=== PATIENT | female | born 1945 | race Caucasian/White ===

== ENCOUNTER 2016-08-23 17:36 | Inpatient (IN) | payer MEDICARE, MEDICAID ==
[~2016-08-23] VITALS: Ht 160 cm; Wt 69.4 kg
--- NOTE | 2016-08-23 18:07 | Emergency Room Report ---
History of Present Illness General Chief Complaint: Altered Level of Consciousness Source: EMS Present Illness HPI [id number] BIBEMS from [facility] for "more altered than usual." Patient doesnt speak. No other info from EMS, patient. No other family members present. PMHx: Dysphagia, sacral ulcer, hyperK, dehydration, HTN, DM, depression Allergies: Coded Allergies: ASPIRIN (Unverified Allergy, Unknown, 08/23/16) NIACIN (Unverified Allergy, Unknown, 08/23/16) PENICILLINS (Verified Allergy, Unknown, 12/18/08) Patient History Past Medical History: see triage record, old chart reviewed, other - see HPI Past Surgical History: unable to obtain Pertinent Family History: unable to obtain Social History: Denies: alcohol use, drug use, smoking Now: No Immunizations: UTD Reviewed Nursing Documentation: PMH: Agreed, PSxH: Agreed Nursing Documentation-PMH Hx Hypertension: Yes Hx Diabetes: Yes Review of Systems All Other Systems: negative except mentioned in HPI Physical Exam Vital Signs Date Time Temp Pulse Resp B/P Pulse Ox O2 Delivery O2 Flow Rate FiO2 08/23/16 17:29 98.8 105 18 183/87 97 Room Air Sp02 EP Interpretation: reviewed, abnormal General Appearance: normal inspection, well appearing, no apparent distress, alert, GCS 15, non-toxic, obese, other - Lip smacking, non-verbal. No acute distress Head: normocephalic, atraumatic Eyes: bilateral eye EOMI, bilateral eye PERRL ENT: normal ENT inspection, hearing grossly normal, normal voice Neck: normal inspection, full range of motion, supple, no bony tend Respiratory: normal inspection, lungs clear, normal breath sounds, no respiratory distress, no retraction, no wheezing Cardiovascular #1: regular rate, rhythm, no edema Gastrointestinal: normal inspection, normal bowel sounds, non tender, soft, no guarding, no hernia Genitourinary: no CVA tenderness Musculoskeletal: normal inspection, back normal, normal range of motion, Elbert' s Sign negative Neurologic: normal inspection, alert, responsive, ad operations associate III-XII nml as tested, motor strength/tone normal, speech normal Psychiatric: normal inspection, judgement/insight normal, mood/affect normal Skin: normal inspection, normal color, other - acral ulcer Medical Decision Making Medicare Attestation I Piotr Ardon MD hereby attest that the medical record entry for date of service, 04/25/16 accurately reflects signatures/notations that I made in my capacity as MD when I treated/diagnosed the above listed Medicare beneficiary. I attest that this information is true, accurate and complete to the best of my knowledge. I understand that any falsification, omission, or concealment of material fact may subject me to administrative, civil, or criminal liability. This patient warrants hospital admission for extreme of age and has a condition that cannot be treated as outpatient. Diagnostic Impression: Primary Impression: Altered level of consciousness Additional Impression: Sepsis Qualified Codes: A41.9 - Sepsis, unspecified organism ER Course Labs: Leuks 17k. H&H stable. UA pending. Troponin 0. ECG: sinus tachycardia A: AMS likely from sepsis, unknown cause Vanc, Clinda given. PEN allergic Blood Cx pending Wright placed to obtain UA CT head negative for acute process PMD is Dr Anderson, requested Dr Hawkins for admission, endorsed for tele admit at 729pm EKG Diagnostic Results Rate: tachycardiac Rhythm: NSR ST Segments: no acute changes ASA given to the pt in ED: No Rhythm Strip Diag. Results EP Interpretation: yes Rate: 103 Rhythm: NSR, no PVC's, no ectopy Chest X-Ray Diagnostic Results EP Interpretation: Yes Findings: no consolidation, no effusion, no pneumothorax Number of Views: 1 Last Vital Signs Date Time Temp Pulse Resp B/P Pulse Ox O2 Delivery O2 Flow Rate FiO2 08/23/16 17:29 98.8 105 18 183/87 97 Room Air Status: improved Disposition: ADMITTED INPATIENT Condition: Serious PIOTR ARDON M.D. Aug 23, 2016 18:07
[2016-08-23 18:35] LABS: BASOPHILS % (AUTO) 0.6 % (0.0-2.0); LYMPHOCYTES % (AUTO) 11.1 % (20.0-45.0); MEAN CORPUSCULAR HEMOGLOBIN 29.6 PG (27.0-31.0); MEAN CORPUSCULAR HGB CONC 31.8 G/DL (32.0-36.0); MEAN CORPUSCULAR VOLUME 93 FL (80-99); MEAN PLATELET VOLUME 7.9 FL (6.5-10.1); MONOCYTES % (AUTO) 5.8 % (1.0-10.0); NEUTROPHILS % (AUTO) 82.5 % (45.0-75.0); PLATELET COUNT 248 K/UL (150-450); RED BLOOD COUNT 3.53 M/UL (4.20-5.40); RED CELL DISTRIBUTION WIDTH 15.1 % (11.6-14.8); WHITE BLOOD COUNT 17.2 K/UL (4.8-10.8)
[2016-08-23 18:38] LABS: TROPONIN I < 0.30 ng/mL (<=0.30)
[2016-08-23 18:41] LABS: ALANINE AMINOTRANSFERASE 13 U/L (3-33); ALBUMIN/GLOBULIN RATIO 1.1 (1.0-2.7); ANION GAP 20 (5-15); ASPARTATE AMINO TRANSFERASE 14 U/L (5-40); CALCIUM 10.3 mg/dL (8.6-10.2); CARBON DIOXIDE 24 mEQ/L (20-30); CHLORIDE 98 mEQ/L (98-107); CREATININE 1.3 mg/dL (0.5-0.9); GLOMERULAR FILTRATION RATE 40.6 mL/min (>60); HEMOLYSIS 3; POTASSIUM 3.5 mEQ/L (3.4-4.9); SODIUM 142 mEQ/L (135-145); TOTAL PROTEIN 7.4 g/dL (6.6-8.7)
[2016-08-23 18:47] VITALS: BP 161/83
[2016-08-23 18:51] LABS: CKMB 1.9 ng/mL (< 3.8)
[2016-08-23] MEDS ORDERED: Clindamycin 900mg 50 ML IVPB ONE (19:00)
[2016-08-23] MEDS ORDERED: Vancomycin 1.5gm/D5W 300ml 325 ML IVPB ONE (19:00)
[2016-08-23 19:41] LABS: REFLEX LACTIC ACID YES OR NO YES
[2016-08-23 19:41] LABS: KETONES,URINE NEGATIVE (NEGATIVE); LEUKOCYTE ESTERASE ,URINE 1+ (NEGATIVE); NITRITE,URINE NEGATIVE (NEGATIVE); PH,URINE 6.5 (4.5-8.0); PROTEIN,URINE 2+ (NEGATIVE); UROBILINOGEN,URINE NORMAL MG/DL (0.0-1.0)
[2016-08-23 19:47] VITALS: BP 129/74
[2016-08-23 19:51] LABS: APPEARANCE,URINE CLEAR
[2016-08-23] MEDS ORDERED: CRANBERRY425 MG GT (19:54)
[2016-08-23] MEDS ORDERED: BENAZEPRIL HCL40 MG ORAL (19:58)
[2016-08-23] MEDS ORDERED: TRICOR48 MG GT (19:58)
[2016-08-23] MEDS ORDERED: VASCEPA1 GM GT (19:58)
[2016-08-23] MEDS ORDERED: BENAZEPRIL HCL40 MG GT (19:58)
[2016-08-23] MEDS ORDERED: LIPITOR40 MG ORAL (19:58)
[2016-08-23] MEDS ORDERED: MILK OF MA400 MG/51 ORAL (19:58)
[2016-08-23] MEDS ORDERED: CARVEDILOL3.125 MG GT (19:58)
[2016-08-23] MEDS ORDERED: Nitroglycerin Subl 0.4mg tab (Bottle Of 25) SL PRN (20:00)
[2016-08-23] MEDS ORDERED: Miralax 17gm pkt ORAL PRN (20:00)
[2016-08-23] MEDS ORDERED: DuoNeb 0.5-3(2.5)mg/3ml neb HHN PRN (20:00)
[2016-08-23 20:09] LABS: BACTERIA,URINE MANY /HPF; RBC,URINE 0-2 /HPF (0 - 2); SQUAMOUS EPITHELIAL CELL,UR FEW /LPF (NONE/OCC); YEAST,URINE FEW /HPF
[2016-08-23] MEDS ORDERED: TYLENOL EXTRA500 MG GT (20:16)
[2016-08-23] MEDS ORDERED: KLONOPIN1 MG GT (20:16)
[2016-08-23] MEDS ORDERED: LANTUS SOL100 UNIT/1 SUBQ (20:17)
[2016-08-23] MEDS ORDERED: HUMALOG100 UNIT/4 SUBQ (20:17)
[2016-08-23 20:54] LABS: ALANINE AMINOTRANSFERASE 12 U/L (3-33); ALBUMIN/GLOBULIN RATIO 1.2 (1.0-2.7); ANION GAP 18 (5-15); ASPARTATE AMINO TRANSFERASE 12 U/L (5-40); CALCIUM 9.4 mg/dL (8.6-10.2); CARBON DIOXIDE 25 mEQ/L (20-30); CHLORIDE 99 mEQ/L (98-107); CREATININE 1.4 mg/dL (0.5-0.9); GLOMERULAR FILTRATION RATE 37.2 mL/min (>60); HEMOLYSIS 2; POTASSIUM 3.5 mEQ/L (3.4-4.9); SODIUM 142 mEQ/L (135-145); TOTAL PROTEIN 6.3 g/dL (6.6-8.7)
[2016-08-23 20:55] LABS: MAGNESIUM 2.2 mg/dL (1.7-2.5); PHOSPHORUS 4.3 mg/dL (2.5-4.8); URIC ACID 9.8 mg/dL (3.0-7.5)
[2016-08-23] MEDS ORDERED: Morphine Sulfate 2mg/ml Inj IVP PRN (21:00)
[2016-08-23 21:47] VITALS: BP 102/53
[2016-08-23] MEDS: Heparin 5000 units/ml inj SUBQ SCH (23:06)
[2016-08-23] MEDS: NovoLOG Insulin Flexpen SUBQ SCH (23:15)
[2016-08-23] MEDS ORDERED: Cefepime 2gm ONE (23:25)
[2016-08-23] MEDS: Cefepime HCl 2 GM in D5W 110 ML IV SCH (23:36)
[2016-08-24 00:03] VITALS: BP 93/57
[2016-08-24 04:10] VITALS: BP 134/72
[2016-08-24] MEDS: NovoLOG Insulin Flexpen SUBQ SCH ×4 (06:18→22:15)
[2016-08-24 07:45] LABS: BASOPHILS % (AUTO) 0.7 % (0.0-2.0); EOSINOPHILS % (AUTO) 0.3 % (0.0-3.0); MEAN CORPUSCULAR HEMOGLOBIN 29.3 PG (27.0-31.0); MEAN CORPUSCULAR HGB CONC 31.5 G/DL (32.0-36.0); MEAN CORPUSCULAR VOLUME 93 FL (80-99); MEAN PLATELET VOLUME 7.6 FL (6.5-10.1); MONOCYTES % (AUTO) 6.5 % (1.0-10.0); NEUTROPHILS % (AUTO) 78.5 % (45.0-75.0); PLATELET COUNT 246 K/UL (150-450); RED BLOOD COUNT 3.35 M/UL (4.20-5.40); RED CELL DISTRIBUTION WIDTH 15.5 % (11.6-14.8); WHITE BLOOD COUNT 13.4 K/UL (4.8-10.8)
[2016-08-24 07:58] LABS: ALANINE AMINOTRANSFERASE 13 U/L (3-33); ALBUMIN/GLOBULIN RATIO 1.1 (1.0-2.7); ANION GAP 19 (5-15); ASPARTATE AMINO TRANSFERASE 16 U/L (5-40); CALCIUM 9.4 mg/dL (8.6-10.2); CARBON DIOXIDE 23 mEQ/L (20-30); CHLORIDE 103 mEQ/L (98-107); CREATININE 1.2 mg/dL (0.5-0.9); GLOMERULAR FILTRATION RATE 44.5 mL/min (>60); HEMOLYSIS 10; POTASSIUM 3.4 mEQ/L (3.4-4.9); SODIUM 145 mEQ/L (135-145); TOTAL PROTEIN 6.6 g/dL (6.6-8.7)
[2016-08-24 08:00] VITALS: BP 153/73
[2016-08-24] MEDS: Heparin 5000 units/ml inj SUBQ SCH ×2 (08:54→21:00)
--- NOTE | 2016-08-24 09:44 | Diagnostic Imaging Report ---
Indication: Altered mental status Technique: spiral acquisitions obtained through the brain. Angled axial and coronal 5 x 5 mm slices were reconstructed. No IV contrast utilized. Radiation dose was minimized using automated exposure control Total dose length product 1513 mGycm. CTDIvol(s) 70 mGy Comparison: none FINDINGS: No acute hemorrhage or edema. No mass effect or midline shift. There is age-related enlargement of the ventricles and extra axial CSF spaces. There is periventricular deep white matter ischemic change. Normal aragon-white differentiation. Visualized orbits are unremarkable. There is minimal disease within the right maxillary sinus. Intact calvarium. IMPRESSION: Chronic and age-related changes. Negative for acute intracranial bleed or mass effect Maxillary sinus disease This agrees with the preliminary interpretation provided overnight by Dr. Mark The CT scanner at [facility] is accredited by the [employer] and the scans are performed using protocols designed to limit radiation exposure to as low as reasonably achievable to attain images of sufficient resolution adequate for diagnostic evaluation
--- NOTE | 2016-08-24 11:44 | Consultation ---
History of Present Illness General Date patient seen: Aug 24, 2016 Chief Complaint: Altered Level of Consciousness Referring physician: Dr. Hansen Reason for Consultation: In-patient management Present Illness HPI 71 year of female with PMHx of Dysphagia, sacral ulcer, HTN, DM, Gtube, depression brought in by paramedics from [facility] for more altered mental status. Apparently she was less responsive. Initial evaluation in the ER revealed that she has acute sepsis and ATN. Therefore she is admitted to telemetry for further evaluation.. she is awake, not communicating, looks comfortable. Allergies: Coded Allergies: ASPIRIN (Unverified Allergy, Unknown, 08/23/16) NIACIN (Unverified Allergy, Unknown, 08/23/16) PENICILLINS (Verified Allergy, Unknown, 12/18/08) Medication History Scheduled Atorvastatin Calcium* (Lipitor*), 40 MG ORAL BEDTIME, (Reported) Benazepril Hcl* (Benazepril Hcl*), 40 MG ORAL DAILY, (Reported) Benazepril Hcl* (Benazepril Hcl*), 40 MG GT DAILY, (Reported) Carvedilol* (Carvedilol*), 3.125 MG GT EVERY 12 HOURS, (Reported) Fenofibrate Nanocrystallized (Tricor), 48 MG GT DAILY, (Reported) Insulin Glargine (Lantus), 0 SUBQ BEDTIME, (Reported) Scheduled PRN Acetaminophen* (Tylenol Extra Strength*), 500 MG GT Q6H PRN for Mild Pain/Temp > 100.5, (Reported) Clonazepam* (Klonopin*), 1 MG GT Q6H PRN for For Anxiety, (Reported) Magnesium Hydroxide* (Milk Of Magnesia*), 30 ML ORAL DAILY PRN for Constipation, (Reported) Miscellaneous Medications Cranberry Extract (Cranberry), 425 MG GT, (Reported) Icosapent Ethyl (Vascepa), 1 GM GT, (Reported) Insulin Lispro (Humalog), 0 SUBQ, (Reported) Patient History Healthcare decision maker Resuscitation status Advanced Directive on File Yes Past Medical/Surgical History Past Medical/Surgical History: (1) Diabetes (2) HTN (hypertension) (3) CVA (cerebral vascular accident) (4) Feeding by G-tube Review of Systems All Other Systems: negative except mentioned in HPI Physical Exam General Appearance: WD/WN Lines, tubes and drains: peripheral, PICC, gtube HEENT: normocephalic, anicteric Neck: non-tender, supple Respiratory/Chest: chest wall non-tender, lungs clear Breasts: no masses Cardiovascular/Chest: normal rate, regular rhythm Abdomen: normal bowel sounds, soft Genitourinary/Rectal: normal genital exam Skin Exam: normal pigmentation Last 24 Hour Vital Signs Date Time Temp Pulse Resp B/P Pulse Ox O2 Delivery O2 Flow Rate FiO2 08/24/16 08:00 86 08/24/16 08:00 98.1 94 16 153/73 94 Room Air 08/24/16 04:10 97.7 80 20 134/72 95 Room Air 08/24/16 04:00 96 08/24/16 00:03 98.1 83 20 93/57 98 Room Air 08/24/16 00:00 82 08/23/16 22:13 68 14 102/53 100 Room Air 08/23/16 21:47 97.6 68 14 102/53 100 Room Air 08/23/16 19:47 99.1 93 18 129/74 99 Nasal Cannula 2.0 08/23/16 18:47 110 20 161/83 99 Room Air 08/23/16 17:29 98.8 105 18 183/87 97 Room Air Intake and Output 08/23/16 08/24/16 19:00 07:00 Intake Total 0 ml 1900 ml Output Total 480 ml Balance 0 ml 1420 ml Intake Oral 0 ml IV Total 1900 ml Output Urine Total 480 ml Laboratory Tests Test 08/23/16 18:00 08/23/16 19:20 08/23/16 20:20 08/24/16 06:35 White Blood Count 17.2 K/UL (4.8-10.8) H 13.4 K/UL (4.8-10.8) H Red Blood Count 3.53 M/UL (4.20-5.40) L 3.35 M/UL (4.20-5.40) L Hemoglobin 10.5 G/DL (12.0-16.0) L 9.8 G/DL (12.0-16.0) L Hematocrit 32.9 % (37.0-47.0) L 31.1 % (37.0-47.0) L Mean Corpuscular Volume 93 FL (80-99) 93 FL (80-99) Mean Corpuscular Hemoglobin 29.6 PG (27.0-31.0) 29.3 PG (27.0-31.0) Mean Corpuscular Hemoglobin Concent 31.8 G/DL (32.0-36.0) L 31.5 G/DL (32.0-36.0) L Red Cell Distribution Width 15.1 % (11.6-14.8) H 15.5 % (11.6-14.8) H Platelet Count 248 K/UL (150-450) 246 K/UL (150-450) Mean Platelet Volume 7.9 FL (6.5-10.1) 7.6 FL (6.5-10.1) Neutrophils (%) (Auto) 82.5 % (45.0-75.0) H 78.5 % (45.0-75.0) H Lymphocytes (%) (Auto) 11.1 % (20.0-45.0) L 14.0 % (20.0-45.0) L Monocytes (%) (Auto) 5.8 % (1.0-10.0) 6.5 % (1.0-10.0) Eosinophils (%) (Auto) 0.0 % (0.0-3.0) 0.3 % (0.0-3.0) Basophils (%) (Auto) 0.6 % (0.0-2.0) 0.7 % (0.0-2.0) Sodium Level 142 mEQ/L (135-145) 142 mEQ/L (135-145) 145 mEQ/L (135-145) Potassium Level 3.5 mEQ/L (3.4-4.9) 3.5 mEQ/L (3.4-4.9) 3.4 mEQ/L (3.4-4.9) Chloride Level 98 mEQ/L (98-107) 99 mEQ/L (98-107) 103 mEQ/L (98-107) Carbon Dioxide Level 24 mEQ/L (20-30) 25 mEQ/L (20-30) 23 mEQ/L (20-30) Anion Gap 20 (5-15) H 18 (5-15) H 19 (5-15) H Blood Urea Nitrogen 59 mg/dL (7-23) H 59 mg/dL (7-23) H 51 mg/dL (7-23) H Creatinine 1.3 mg/dL (0.5-0.9) H 1.4 mg/dL (0.5-0.9) H 1.2 mg/dL (0.5-0.9) H Estimat Glomerular Filtration Rate 40.6 mL/min (>60) 37.2 mL/min (>60) 44.5 mL/min (>60) Glucose Level 235 mg/dL (74-106) H 247 mg/dL (74-106) H 159 mg/dL (74-106) H Lactic Acid Level 2.70 mmol/L (0.66-2.22) H 2.50 mmol/L (0.66-2.22) H Calcium Level 10.3 mg/dL (8.6-10.2) H 9.4 mg/dL (8.6-10.2) 9.4 mg/dL (8.6-10.2) Total Bilirubin < 0.2 mg/dL (0.0-1.2) < 0.2 mg/dL (0.0-1.2) < 0.2 mg/dL (0.0-1.2) Aspartate Amino Transf (AST/SGOT) 14 U/L (5-40) 12 U/L (5-40) 16 U/L (5-40) Alanine Aminotransferase (ALT/SGPT) 13 U/L (3-33) 12 U/L (3-33) 13 U/L (3-33) Alkaline Phosphatase 77 U/L (35-104) 66 U/L (35-104) 65 U/L (35-104) Total Creatine Kinase 56 U/L (26-140) 44 U/L (26-140) Creatine Kinase MB 1.9 ng/mL (< 3.8) Creatine Kinase MB Relative Index 3.3 Troponin I < 0.30 ng/mL (<=0.30) Total Protein 7.4 g/dL (6.6-8.7) 6.3 g/dL (6.6-8.7) L 6.6 g/dL (6.6-8.7) Albumin 3.9 g/dL (3.5-5.2) 3.5 g/dL (3.5-5.2) 3.5 g/dL (3.5-5.2) Globulin 3.5 g/dL 2.8 g/dL 3.1 g/dL Albumin/Globulin Ratio 1.1 (1.0-2.7) 1.2 (1.0-2.7) 1.1 (1.0-2.7) Urine Color Pale yellow Urine Appearance Clear Urine pH 6.5 (4.5-8.0) Urine Specific Nebo 1.010 (1.005-1.035) Urine Protein 2+ (NEGATIVE) H Urine Glucose (UA) 3+ (NEGATIVE) H Urine Ketones Negative (NEGATIVE) Urine Occult Blood 1+ (NEGATIVE) H Urine Nitrite Negative (NEGATIVE) Urine Bilirubin Negative (NEGATIVE) Urine Urobilinogen Normal MG/DL (0.0-1.0) Urine Leukocyte Esterase 1+ (NEGATIVE) H Urine RBC 0-2 /HPF (0 - 2) Urine WBC 2-4 /HPF (0 - 2) Urine Squamous Epithelial Cells Few /LPF (NONE/OCC) Urine Bacteria Many /HPF (NONE) H Urine Yeast Few /HPF (NONE) H Urine Osmolality Pending Urine Random Sodium 52 mmol/L Urine Random Chloride 46 mmol/L Urine Potassium Timed 44 mmol/L Urine Opiates Screen Negative (NEGATIVE) Urine Barbiturates Screen Negative (NEGATIVE) Phencyclidine (PCP) Screen Negative (NEGATIVE) Urine Amphetamines Screen Negative (NEGATIVE) Urine Benzodiazepines Screen Negative (NEGATIVE) Urine Cocaine Screen Negative (NEGATIVE) Urine Marijuana (THC) Screen Negative (NEGATIVE) Plasma/Serum Osmolality Pending Uric Acid 9.8 mg/dL (3.0-7.5) H Phosphorus Level 4.3 mg/dL (2.5-4.8) Magnesium Level 2.2 mg/dL (1.7-2.5) Free Thyroxine 1.91 ng/dL (0.86-1.85) H Microbiology Date/Time Source Procedure Growth Status 08/23/16 19:20 Urine,Clean Catch Urine Culture - Preliminary Gram Negative Bacillus 1 Resulted Height (Feet): 5 Height (Inches): 3.00 Weight (Pounds): 153 Medications Current Medications Medications (Trade) Dose Ordered Sig/Nicholas Route PRN Reason Start Time Stop Time Status Last Admin Dose Admin Acetaminophen (Tylenol) 650 mg Q4H PRN ORAL fever 08/23/16 20:00 09/22/16 19:59 Albuterol/ Ipratropium 3 ml 3 ml Q4H PRN HHN Shortness of Breath 08/23/16 20:00 08/28/16 19:59 Cefepime HCl 2 gm/ Dextrose 110 ml @ 220 mls/hr Q24H IV 08/23/16 23:00 08/30/16 22:59 08/23/16 23:36 Dextrose (Dextrose 50%) STAT PRN IV Hypoglycemia 08/23/16 20:00 09/22/16 19:59 Heparin Sodium (Porcine) (Heparin 5000 units/ml) 5,000 units EVERY 12 HOURS SUBQ 08/23/16 21:00 09/22/16 20:59 08/24/16 08:54 Insulin Aspart (NovoLOG) BEFORE MEALS AND HS SUBQ 08/23/16 22:00 09/22/16 21:59 08/24/16 06:18 Morphine Sulfate (Morphine Sulfate) 2 mg Q4H PRN IVP Moderate Pain (Pain Scale 4-6) 08/23/16 21:00 08/30/16 20:59 Nitroglycerin (Ntg) 0.4 mg Q5MIN X 3 DOSES PRN SL Prn Chest Pain 08/23/16 20:00 09/22/16 19:59 Ondansetron HCl (Zofran) 4 mg Q6H PRN IVP Nausea & Vomiting 08/23/16 20:00 09/22/16 19:59 Polyethylene Glycol (Miralax) 17 gm DAILYPRN PRN ORAL Constipation 08/23/16 20:00 09/22/16 19:59 Sodium Chloride (Sodium Chloride 1000ml bag) 1,000 ml @ 100 mls/hr Q10H IVLG 08/23/16 22:00 09/22/16 21:59 08/24/16 08:53 Temazepam (Restoril) 15 mg HSPRN PRN ORAL Insomnia 08/23/16 20:00 08/30/16 19:59 Vancomycin HCl (Vanco rx to dose) 1 ea DAILY PRN MISC PRN RX PROTOCOL 08/23/16 20:45 09/22/16 20:44 Vancomycin HCl/ Dextrose (Vancomycin/D5W) 275 ml @ 183.3 mls/ hr Q24H IVPB 08/24/16 19:00 08/29/16 18:59 Assessment/Plan Problem List: (1) Sepsis ICD Codes: A41.9 - Sepsis, unspecified organism SNOMED: 13757368 Qualifiers: Qualified Codes: A41.9 - Sepsis, unspecified organism (2) ATN (acute tubular necrosis) ICD Codes: N17.0 - Acute kidney failure with tubular necrosis SNOMED: 04933260 (3) HTN (hypertension) ICD Codes: I10 - Essential (primary) hypertension SNOMED: 12342477 (4) CVA (cerebral vascular accident) ICD Codes: I63.9 - Cerebral infarction, unspecified SNOMED: 352452903 (5) Feeding by G-tube ICD Codes: Z93.1 - Gastrostomy status SNOMED: 034984184, 279033998 (6) Diabetes ICD Codes: E11.9 - Type 2 diabetes mellitus without complications SNOMED: 59833359 Assessment/Plan lees culture iv antibioitics iv fluids check cultures dvt prophylaxis check electrolytes nutrition evaluation MAGDA SAUL Aug 24, 2016 11:44
--- NOTE | 2016-08-24 11:44 | History & Physical ---
History and Physical History & Physicial Dictated for Int Med-Dr Hawkins no. [id number]. BRAD ABREU Aug 24, 2016 11:43
[2016-08-24 12:00] VITALS: BP 152/80
--- NOTE | 2016-08-24 14:26 | Diagnostic Imaging Report ---
Indication: Shortness of breath Technique: One view of the chest Comparison: 03/22/2017 Findings: There is thoracic scoliotic deformity. Lungs and pleural spaces are clear. The heart is enlarged. Impression: No acute process Cardiomegaly Scoliosis, also previously reported
--- NOTE | 2016-08-24 14:55 | Diagnostic Imaging Report ---
Indication: Abnormal renal function tests Technique: Grayscale and duplex images of the kidneys, retroperitoneum, and bladder were obtained. Comparison: Findings: Right kidney measures 10.2 cm in length. Left kidney measures 10.1 cm in length. Both kidneys demonstrate normal echogenicity. No hydronephrosis. The right kidney demonstrates a 15 mm diameter calculus in the lower pole renal sinus. The left kidney demonstrates a 15 mm upper pole cyst. Normal inferior vena cava. Bladder is empty, contains a Wright catheter. Impression: Negative for hydronephrosis Nonobstructing right lower pole renal calculus Left renal cyst incidentally noted .
[2016-08-24 16:00] VITALS: BP 152/79
--- NOTE | 2016-08-24 18:58 | History and Physical Report ---
DATE OF ADMISSION: 08/23/[address] Hawkins CHIEF COMPLAINT: The patient is a 71-year-old white female who presents with complaint of altered mental status. HISTORY OF PRESENT ILLNESS: The patient is a resident of [facility] skilled [facility]. According to staff, she is becoming increasingly altered. The patient was transferred to [place] emergency room. The patient was found to have urinary tract infection. The patient was admitted for altered mental status and urinary tract infection. REVIEW OF SYSTEMS: Unable to assess, secondary to patient's mental condition. PAST MEDICAL HISTORY: Significant for. 1. Type 2 diabetes. 2. Chronic renal failure. 3. Hypertension. 4. Coronary artery disease. 5. Schizoaffective disorder, bipolar type. 6. Sacral decubitus ulcer. 7. Dysphagia. PAST SURGICAL HISTORY: Significant for G-tube placement. . CURRENT MEDICATIONS: 1. Coreg 3.125 mg p.o. twice daily. 2. Regular insulin sliding scale. 3. Benazepril 40 mg one tablet per G-tube daily. 4. Lipitor 40 mg per G-tube daily. 5. TriCor 48 mg per G-tube daily. 6. Vascepa 1 g two capsules per G-tube daily. 7. Tylenol 650 mg one tablet per G-tube every four hours as needed. 8. Clonazepam 1 mg one tablet p.o. every four hours as needed. 9. Depakote 250 mg per G-tube three times daily. 10. Procrit 6000 units subcutaneously three times weekly. 11. Iron sulfate mg per G-tube daily. 12. Multivitamin per G-tube daily. 13. Tramadol 50 mg per G-tube every six hours as needed. 14. Humalog sliding scale. 15. Lantus 60 units subcutaneously at bedtime. 16. Captopril 25 mg per G-tube every six hours. 17. Zyprexa 5 mg per G-tube daily. 18. DuoNeb nebulized as needed. ALLERGIES: 1. Aspirin. 2. Niacin. 3. Penicillin. SOCIAL HISTORY: The patient resident of [facility]. The patient denies tobacco or alcohol use. PHYSICAL EXAMINATION: VITAL SIGNS: Temperature 98.1, respirations 20, pulse 83, blood pressure 93/57. GENERAL: The patient well-developed and well-nourished white female, in no apparent distress. HEENT: Eyes, pupils are equal and responsive to light and accommodation. Extraocular movements are intact. NECK: Supple without lymphadenopathy. CHEST: Lungs are clear to auscultation bilaterally without wheezes or rales. CARDIOVASCULAR: Regular rhythm and rate. S1 and S2 normal without murmurs, rubs, or gallops. ABDOMEN: Soft, nontender, and nondistended. Positive bowel sounds. No evidence of hepatosplenomegaly. Currently no rebound, no guarding. EXTREMITIES: Negative for clubbing, cyanosis, or edema. RECTAL/GENITAL: Refused. NEUROLOGIC: Cranial nerves II through XII are grossly intact without focal deficits. Motor strength is 5/5 bilaterally. Deep tendon reflexes are 2+ plantar LABORATORY STUDIES: WBC 17.2, hemoglobin 10.5, hematocrit 32.9, and platelets 248,000. Sodium 142, potassium 3.5, chloride 99, CO2 25, BUN 59, creatinine 1.4, glucose 247. Lactic acid elevated at 2.7. Troponin normal at less than 0.3. Urinalysis showed 2+ protein, 3+ glucose, 1+ occult blood, with 1+ leukocyte esterase, and 2 to 4 WBCs. ASSESSMENT: This is a 71-year-old white female. 1. Urinary tract infection. 2. Altered mental status. 3. Leukocytosis. 4. Diabetes type 2. 5. Renal failure. 6. . 7. Coronary artery disease. 8. Schizoaffective disorder, bipolar type. 9. Sacral decubitus ulcer. 10. Dysphagia. 11. Hypercholesterolemia. TREATMENT: 1. Urinary tract infection. Urine culture is pending. The patient has been started empirically on intravenous vancomycin and cefepime. Await urine culture, ID and sensitivity. 2. Altered mental status. This may be secondary to urinary tract infection as above. 3. Leukocytosis, this may be secondary to pyelonephritis versus urinary tract infection as above. The patient has been started empirically on intravenous cefepime and vancomycin. An infectious disease consultation obtained with Dr. Ricks. 4. Hypertension. Continue Coreg as above. 5. Coronary artery disease. 6. Schizoaffective disorder, bipolar type. Continue Depakote as above. 7. Sacral decubitus ulcer. The patient is receiving wound care. 8. Dysphagia, the patient is status post G tube. 9. Hypercholesterolemia. Continue Lipitor as above. Fuad Hansen M.D. DR: Antonio JOB#: [id number] CC:
[2016-08-24] MEDS ORDERED: Vancomycin 1 GM in D5W 275 ML IVPB SCH (19:00)
[2016-08-24 20:00] VITALS: BP 141/64
[2016-08-24] MEDS: Cefepime HCl 2 GM in D5W 110 ML IV SCH (22:15)
--- NOTE | 2016-08-24 23:09 | Cardiology Report ---
APPROVED REPORT EKG Measurement Heart Mgze226TRGM ID [id number] Sinus tachycardia Otherwise normal ECG
--- NOTE | 2016-08-24 23:21 | Consultation ---
Consult Note Consult Note ID Dic # [id number] JACKY DAVENPORT M.D. Aug 24, 2016 23:21
[2016-08-25] VITALS (8 sets, daily range): BP systolic 132–187; BP diastolic 71–105
[2016-08-25] MEDS ORDERED: Nitroglycerin Subl 0.4mg tab (Bottle Of 25) SL PRN (01:00)
--- NOTE | 2016-08-25 03:18 | Consultation ---
DATE OF CONSULTATION: 08/24/2016 INFECTIOUS DISEASE CONSULTATION CONSULTING PHYSICIAN: Scooby Ricks M.D. REFERRING PHYSICIAN: 1. Bruce Hurst M.D. 2. Pete Hawkins M.D. REASON FOR CONSULTATION: Evaluation of the patient for sepsis. Recommendation for antibiotic management. HISTORY OF PRESENT ILLNESS: The patient is a 71-year-old female with multiple medical problems who has been admitted to this medical center for worsening of mental status. checking the patient. Infectious Diseases consultation has been requested for further evaluation of the patient's antibiotic management. PAST MEDICAL HISTORY: 1. Diabetes, on insulin. 2. History of renal insufficiency. 3. Hypertension. 4. Coronary artery disease. 5. Schizoaffective disorder and bipolar disorder. 6. disease. 7. Dysphagia status post G-tube placement. ALLERGIES: Aspirin, niacin, and penicillin. MEDICATION: Vancomycin and cefepime. SOCIAL HISTORY: The patient lives in a custodial. FAMILY HISTORY: Noncontributory. REVIEW OF SYSTEMS: Unobtainable. PHYSICAL EXAMINATION: VITAL SIGNS: Pulse 86, respiratory rate 18, temperature 98 degrees, and blood pressure 114/54. HEENT: Mild pale conjunctivae. No icterus. NECK: No lymphadenopathy. CHEST: Coarse breathing sounds. HEART: S1 and S2. ABDOMEN: Soft and nontender. EXTREMITIES: No cyanosis . LABORATORY DATA: White blood cells , hemoglobin 10, and platelets 246,000. UA shows many bacteria and 2 to 4 white blood cells. BUN 51 and creatinine 1.2. Liver function tests are unremarkable. Urine culture is growing gram-negative rods. Chest x-ray, no acute process. Ultrasound of the kidney, negative for hydronephrosis. CT of the head, no acute process and maxillary sinus disease. ASSESSMENT: The patient is a 71-year-old female with multiple medical problems, altered level of consciousness due to the sepsis. The patient had leukocytosis that has been improving checking the patient, however, there is a possibility of bacteremia. PLAN: 1. We will continue the patient on cefepime and vancomycin. 2. Monitor CBC. 3. Monitor BMP. 4. Monitor cultures (blood and urine). 5. Monitor liver function tests. 6. Based on the patient's clinical course and laboratories, we will do further recommendation. Thank you for the consultation. I will follow the patient with you during this hospitalization. Scooby Ricks M.D. DR: CHERELLE JOB#: [id number] CC:
[2016-08-25] MEDS ORDERED: DuoNeb 0.5-3(2.5)mg/3ml neb HHN PRN (04:00)
[2016-08-25] MEDS ORDERED: Morphine Sulfate 2mg/ml Inj IVP PRN (05:00)
[2016-08-25] MEDS: NovoLOG Insulin Flexpen SUBQ SCH ×3 (06:11→18:07)
[2016-08-25 07:51] LABS: BASOPHILS % (AUTO) 0.8 % (0.0-2.0); EOSINOPHILS % (AUTO) 0.4 % (0.0-3.0); LYMPHOCYTES % (AUTO) 10.1 % (20.0-45.0); MEAN CORPUSCULAR HEMOGLOBIN 29.9 PG (27.0-31.0); MEAN CORPUSCULAR HGB CONC 32.5 G/DL (32.0-36.0); MEAN CORPUSCULAR VOLUME 92 FL (80-99); MEAN PLATELET VOLUME 8.2 FL (6.5-10.1); MONOCYTES % (AUTO) 5.6 % (1.0-10.0); NEUTROPHILS % (AUTO) 83.2 % (45.0-75.0); PLATELET COUNT 222 K/UL (150-450); RED BLOOD COUNT 3.25 M/UL (4.20-5.40); RED CELL DISTRIBUTION WIDTH 15.5 % (11.6-14.8); WHITE BLOOD COUNT 13.3 K/UL (4.8-10.8)
[2016-08-25 08:06] LABS: CALCIUM 8.9 mg/dL (8.6-10.2); POTASSIUM 3.1 mEQ/L (3.4-4.9)
[2016-08-25] MEDS: Heparin 5000 units/ml inj SUBQ SCH ×2 (09:02→20:44)
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
--- NOTE | 2016-08-25 09:23 | Infectious Diseases Prog Note ---
Assessment/Plan Assessment/Plan A: The patient is a 71-year-old female with Leukocytosis Sepsis ALOC due to sepsis CT of the head : ? maxillary sinus disease. ( not clinically significance ) UTI Ucx ESBL Kleb Ultrasound of the kidney, negative for hydronephrosis Diabetes Acute renal insufficiency , SP Hypertension CAD Schizoaffective disorder and bipolar disorder Dysphagia status post G-tube placement P: continue the patient on Merrem d# / uponDC will change to Invanz 1 gm daily to complete the course and DC vancomycin and cefepime d# 2 Monitor CBC Monitor BMP. Monitor cultures (blood and urine). Monitor LFT Subjective Constitutional: Denies: anorexia, chills, drenching sweats, fatigue, fever, no symptoms, other Allergies: Coded Allergies: ASPIRIN (Unverified Allergy, Unknown, 08/23/16) NIACIN (Unverified Allergy, Unknown, 08/23/16) PENICILLINS (Verified Allergy, Unknown, 12/18/08) Objective Vital Signs Last 24 Hour Vital Signs Date Time Temp Pulse Resp B/P Pulse Ox O2 Delivery O2 Flow Rate FiO2 08/25/16 08:09 97.5 98 21 154/76 97 Room Air 08/25/16 07:40 98 18 Room Air 08/25/16 07:20 146/91 08/25/16 04:00 98.4 96 18 164/91 96 Room Air 08/25/16 00:09 98.8 92 19 132/92 96 Room Air 08/24/16 20:00 85 08/24/16 20:00 98.2 92 20 141/64 97 Room Air 08/24/16 16:00 97 08/24/16 16:00 97.9 98 22 152/79 97 Room Air 08/24/16 12:00 91 08/24/16 12:00 97.9 99 26 152/80 95 Room Air Height (Feet): 5 Height (Inches): 3.00 Weight (Pounds): 153 HEENT: anicteric Respiratory/Chest: lungs clear Cardiovascular: normal rate Abdomen: no organomegaly Microbiology Date/Time Source Procedure Growth Status 08/23/16 18:10 Blood Blood Culture - Preliminary NO GROWTH AFTER 24 HOURS Resulted 08/23/16 18:00 Blood Blood Culture - Preliminary NO GROWTH AFTER 24 HOURS Resulted 08/23/16 19:20 Urine,Clean Catch Urine Culture - Preliminary Gram Negative Bacillus 1 Resulted 08/23/16 19:45 Rectum VRE Culture - Final Enterococcus Faecalis - Vre Complete Laboratory Tests Test 08/25/16 03:45 08/25/16 07:30 Urine Eosinophils None seen White Blood Count 13.3 K/UL (4.8-10.8) H Red Blood Count 3.25 M/UL (4.20-5.40) L Hemoglobin 9.7 G/DL (12.0-16.0) L Hematocrit 29.8 % (37.0-47.0) L Mean Corpuscular Volume 92 FL (80-99) Mean Corpuscular Hemoglobin 29.9 PG (27.0-31.0) Mean Corpuscular Hemoglobin Concent 32.5 G/DL (32.0-36.0) Red Cell Distribution Width 15.5 % (11.6-14.8) H Platelet Count 222 K/UL (150-450) Mean Platelet Volume 8.2 FL (6.5-10.1) Neutrophils (%) (Auto) 83.2 % (45.0-75.0) H Lymphocytes (%) (Auto) 10.1 % (20.0-45.0) L Monocytes (%) (Auto) 5.6 % (1.0-10.0) Eosinophils (%) (Auto) 0.4 % (0.0-3.0) Basophils (%) (Auto) 0.8 % (0.0-2.0) Sodium Level 141 mEQ/L (135-145) Potassium Level 3.1 mEQ/L (3.4-4.9) L Chloride Level 102 mEQ/L (98-107) Carbon Dioxide Level 20 mEQ/L (20-30) Anion Gap 19 (5-15) H Blood Urea Nitrogen 37 mg/dL (7-23) H Creatinine 1.0 mg/dL (0.5-0.9) H Estimat Glomerular Filtration Rate 55.0 mL/min (>60) Glucose Level 271 mg/dL (74-106) #H Calcium Level 8.9 mg/dL (8.6-10.2) Current Medications Medications (Trade) Dose Ordered Sig/Nicholas Route PRN Reason Start Time Stop Time Status Last Admin Dose Admin Acetaminophen (Tylenol) 650 mg Q4H PRN ORAL fever 08/25/16 04:00 09/24/16 03:59 Albuterol/ Ipratropium (DuoNeb 0.5-3(2.5)mg/3ml) 3 ml Q4H PRN HHN Shortness of Breath 08/25/16 04:00 08/30/16 03:59 Cefepime HCl 2 gm/ Dextrose 110 ml @ 220 mls/hr Q24H IV 08/25/16 23:00 09/01/16 22:59 Dextrose (Dextrose 50%) STAT PRN IV Hypoglycemia 08/25/16 20:00 09/24/16 19:59 Heparin Sodium (Porcine) (Heparin 5000 units/ml) 5,000 units EVERY 12 HOURS SUBQ 08/25/16 09:00 09/24/16 08:59 08/25/16 09:02 Insulin Aspart (NovoLOG) BEFORE MEALS AND HS SUBQ 08/25/16 06:30 09/24/16 06:29 08/25/16 06:11 Morphine Sulfate (Morphine Sulfate) 2 mg Q4H PRN IVP Moderate Pain (Pain Scale 4-6) 08/25/16 05:00 09/01/16 04:59 Nitroglycerin (Ntg) 0.4 mg Q5MIN X 3 DOSES PRN SL Prn Chest Pain 08/25/16 01:00 09/24/16 00:59 Ondansetron HCl (Zofran) 4 mg Q6H PRN IVP Nausea & Vomiting 08/25/16 02:00 09/24/16 01:59 Polyethylene Glycol (Miralax) 17 gm DAILYPRN PRN ORAL Constipation 08/25/16 20:00 09/24/16 19:59 Sodium Chloride 1,000 ml @ 100 mls/hr Q10H IVLG 08/25/16 01:00 09/24/16 00:59 08/25/16 06:12 Temazepam (Restoril) 15 mg HSPRN PRN ORAL Insomnia 08/25/16 20:00 09/01/16 19:59 Vancomycin HCl (Vanco rx to dose) 1 ea DAILY PRN MISC PRN RX PROTOCOL 08/25/16 09:00 09/24/16 08:59 Vancomycin HCl/ Dextrose (Vancomycin/D5W) 275 ml @ 183.3 mls/ hr Q24H IVPB 08/25/16 19:00 08/30/16 18:59 JACKY DAVENPORT M.D. Aug 25, 2016 09:23
[2016-08-25] MEDS: Meropenem 1 GM in NS 110 ML IVPB SCH ×2 (12:34→22:39)
[2016-08-25] MEDS ORDERED: KCl 10% 40mEq/30ml liquid GT ONE (15:45)
--- NOTE | 2016-08-25 16:28 | Physician Query ---
PLEASE COMPLETE DOCUMENT BEFORE SIGNING Dear Dr. Pete Hawkins Date: August Station Engineer/CDS Name: Sukhjinder Asher CDS Station Engineer / CDS Exercise your independent professional judgment when responding to query. Question asked do not imply a particular answer is desired/expected. Clinical Documentation States: "Altered Mental Status /Altered Level Of Consciousness" documented in ED Provider's Notes. "Altered Mental Status" due to Sepsis. Clinical Findings Show: WBC= 17.2, 13.4, 13.3 Lactic Acid=2.70, 2.[address] Scan: IMPRESSION: Chronic and age-related changes. Negative for acute intracranial bleed or mass effect Please indicate the nature and chronicity of the condition below: [] Metabolic Encephalopathy [] Toxic Encephalopathy [x] Toxic - Metabolic Encephalopathy [] Progressive Encephalopathy [] Encephalopathy, Other [] Other: [] Not Applicable Severity [] Acute [] Chronic [] Acute on Chronic [] Unable to determine Condition Present on Admission: [x] Yes [] No []Clinically Undeterminable Please also document in your Progress Notes and/or Discharge Summary and indicate if the condition was present on admission. Ross Freeman MD Date[facility]
--- NOTE | 2016-08-25 17:07 | Internal Med Progress Note ---
Subjective Date of Service: Aug 25, 2016 Physician Name Fuad Abreu Attending Physician Pete Hawkins MD Current Medications Medications (Trade) Dose Ordered Sig/Nicholas Route PRN Reason Start Time Stop Time Status Last Admin Dose Admin Acetaminophen (Tylenol) 650 mg Q4H PRN ORAL fever 08/25/16 04:00 09/24/16 03:59 Albuterol/ Ipratropium (DuoNeb 0.5-3(2.5)mg/3ml) 3 ml Q4H PRN HHN Shortness of Breath 08/25/16 04:00 08/30/16 03:59 Benazepril HCl (Lotensin) 40 mg DAILY GT 08/25/16 15:15 09/24/16 15:14 08/25/16 16:00 Carvedilol (Coreg) 3.125 mg EVERY 12 HOURS GT 08/25/16 16:00 09/24/16 15:59 08/25/16 16:00 Clonidine HCl (Catapres) 0.1 mg Q4H PRN ORAL SBP>160 08/25/16 15:15 09/24/16 15:14 08/25/16 16:00 Dextrose (Dextrose 50%) STAT PRN IV Hypoglycemia 08/25/16 20:00 09/24/16 19:59 Heparin Sodium (Porcine) (Heparin 5000 units/ml) 5,000 units EVERY 12 HOURS SUBQ 08/25/16 09:00 09/24/16 08:59 08/25/16 09:02 Insulin Aspart (NovoLOG) Q6HR SUBQ 08/25/16 18:00 09/24/16 17:59 Meropenem/Sodium Chloride (Merrem/Sodium Chloride) 110 ml @ 220 mls/hr Q8HR IVPB 08/25/16 12:00 08/30/16 11:59 08/25/16 12:34 Morphine Sulfate (Morphine Sulfate) 2 mg Q4H PRN IVP Moderate Pain (Pain Scale 4-6) 08/25/16 05:00 09/01/16 04:59 Nitroglycerin (Ntg) 0.4 mg Q5MIN X 3 DOSES PRN SL Prn Chest Pain 08/25/16 01:00 09/24/16 00:59 Ondansetron HCl (Zofran) 4 mg Q6H PRN IVP Nausea & Vomiting 08/25/16 02:00 09/24/16 01:59 Polyethylene Glycol (Miralax) 17 gm DAILYPRN PRN ORAL Constipation 08/25/16 20:00 09/24/16 19:59 Sodium Chloride (Sodium Chloride 1000ml bag) 1,000 ml @ 100 mls/hr Q10H IVLG 08/25/16 01:00 09/24/16 00:59 08/25/16 06:12 Temazepam 15 mg 15 mg HSPRN PRN ORAL Insomnia 08/25/16 20:00 09/01/16 19:59 Allergies: Coded Allergies: ASPIRIN (Unverified Allergy, Unknown, 08/23/16) NIACIN (Unverified Allergy, Unknown, 08/23/16) PENICILLINS (Verified Allergy, Unknown, 12/18/08) ROS Limited/Unobtainable: Yes Subjective 71 YO F admitted with altered mental status; now UTI. Cover for Int Med-Dr Hawkins. Objective Last Vital Signs Date Time Temp Pulse Resp B/P Pulse Ox O2 Delivery O2 Flow Rate FiO2 08/25/16 16:00 98.8 111 20 187/78 96 Room Air 08/23/16 19:47 2.0 General Appearance: WD/WN, no apparent distress, alert EENT: PERRL/EOMI, normal ENT inspection Neck: non-tender, normal alignment, supple Cardiovascular: normal peripheral pulses, normal rate, regular rhythm, no gallop/murmur, no JVD Respiratory/Chest: chest wall non-tender, lungs clear, normal breath sounds, no respiratory distress, no accessory muscle use Abdomen: normal bowel sounds, non tender, soft, no organomegaly, no mass Extremities: normal range of motion, non-tender 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, no motor/sensory deficits Skin: normal pigmentation, warm/dry Laboratory Tests Test 08/25/16 03:45 08/25/16 07:30 Urine Eosinophils None seen White Blood Count 13.3 K/UL (4.8-10.8) H Red Blood Count 3.25 M/UL (4.20-5.40) L Hemoglobin 9.7 G/DL (12.0-16.0) L Hematocrit 29.8 % (37.0-47.0) L Mean Corpuscular Volume 92 FL (80-99) Mean Corpuscular Hemoglobin 29.9 PG (27.0-31.0) Mean Corpuscular Hemoglobin Concent 32.5 G/DL (32.0-36.0) Red Cell Distribution Width 15.5 % (11.6-14.8) H Platelet Count 222 K/UL (150-450) Mean Platelet Volume 8.2 FL (6.5-10.1) Neutrophils (%) (Auto) 83.2 % (45.0-75.0) H Lymphocytes (%) (Auto) 10.1 % (20.0-45.0) L Monocytes (%) (Auto) 5.6 % (1.0-10.0) Eosinophils (%) (Auto) 0.4 % (0.0-3.0) Basophils (%) (Auto) 0.8 % (0.0-2.0) Sodium Level 141 mEQ/L (135-145) Potassium Level 3.1 mEQ/L (3.4-4.9) L Chloride Level 102 mEQ/L (98-107) Carbon Dioxide Level 20 mEQ/L (20-30) Anion Gap 19 (5-15) H Blood Urea Nitrogen 37 mg/dL (7-23) H Creatinine 1.0 mg/dL (0.5-0.9) H Estimat Glomerular Filtration Rate 55.0 mL/min (>60) Glucose Level 271 mg/dL (74-106) #H Calcium Level 8.9 mg/dL (8.6-10.2) Microbiology Date/Time Source Procedure Growth Status 08/23/16 18:10 Blood Blood Culture - Preliminary NO GROWTH AFTER 24 HOURS Resulted 08/23/16 18:00 Blood Blood Culture - Preliminary NO GROWTH AFTER 24 HOURS Resulted 08/23/16 19:20 Urine,Clean Catch Urine Culture - Final Klebsiella Pneumoniae Esbl Complete 08/23/16 19:45 Rectum VRE Culture - Final Enterococcus Faecalis - Vre Complete Intake and Output 08/24/16 08/25/16 19:00 07:00 Intake Total 1623.3 ml Output Total 700 ml 500 ml Balance -700 ml 1123.3 ml IV Total 983.3 ml Tube Feeding 640 ml Output Urine Total 700 ml 500 ml # Bowel Movements 1 Assessment/Plan Problem List: (1) CAD (coronary artery disease) (2) Schizoaffective disorder, bipolar type (3) Dysphagia (4) Hypercholesterolemia (5) UTI (urinary tract infection) Assessment & Plan: Multi drug resistant Klebsiella-See ID note. 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 Cont meropenem per ID (7) Altered mental status (8) Leukocytosis (9) Diabetes mellitus type II, uncontrolled Assessment & Plan: Continue novolog sliding scale. (10) Renal failure (11) HTN (hypertension) Assessment & Plan: Cont coreg and lotesnin Status: not improved FUAD ABREU Aug 25, 2016 17:07
[2016-08-25] MEDS ORDERED: traMADol 50mg tab ORAL PRN (17:15)
[2016-08-25] MEDS ORDERED: Acetaminophen 500mg (ES) tab ORAL PRN (17:15)
[2016-08-25] MEDS ORDERED: Milk of Magnesia 30ml Ud ORAL PRN (17:15)
[2016-08-25] MEDS ORDERED: FERROUS SU220 MG/53 PO (17:22)
[2016-08-25] MEDS ORDERED: MULTIVITAMINS1 EAC2 ORAL (17:22)
[2016-08-25] MEDS ORDERED: OLANZAPINE5 MG ORAL (17:22)
[2016-08-25] MEDS ORDERED: VALPROIC A250 MG/5 M PO (17:22)
[2016-08-25] MEDS ORDERED: TRAMADOL HCL100 M2 ORAL (17:22)
[2016-08-25] MEDS ORDERED: PROCRIT2000 UNIT/ SUBQ (17:22)
[2016-08-25] MEDS: Valproic Acid 250mg/5ml Liquid GT SCH (18:06)
[2016-08-25] MEDS: Ferrous Sulfate 300 MG/5 ML UDC GT SCH (18:06)
[2016-08-25] MEDS ORDERED: Vancomycin 1 GM in D5W 275 ML IVPB SCH (19:00)
[2016-08-25] MEDS ORDERED: Miralax 17gm pkt ORAL PRN (20:00)
[2016-08-25] MEDS ORDERED: Cefepime HCl 2 GM in D5W 110 ML IV SCH (23:00)
--- NOTE | 2016-08-25 23:29 | Pulmonology Progress Note ---
Assessment/Plan Problems: (1) Sepsis (2) ATN (acute tubular necrosis) (3) HTN (hypertension) (4) CVA (cerebral vascular accident) (5) Feeding by G-tube (6) Diabetes Assessment/Plan Invanz started by Id check wbc check electroltyes tolerating diet dvt prophylaxis Subjective ROS Limited/Unobtainable: No Allergies: Coded Allergies: ASPIRIN (Unverified Allergy, Unknown, 08/23/16) NIACIN (Unverified Allergy, Unknown, 08/23/16) PENICILLINS (Verified Allergy, Unknown, 12/18/08) Objective Last 24 Hour Vital Signs Date Time Temp Pulse Resp B/P Pulse Ox O2 Delivery O2 Flow Rate FiO2 08/25/16 22:05 95 153/71 08/25/16 20:44 175/103 08/25/16 19:12 101 18 Room Air 08/25/16 19:00 98.0 99 20 175/103 98 Room Air 08/25/16 16:00 98.8 111 20 187/78 96 Room Air 08/25/16 16:00 187/85 08/25/16 16:00 112 187/85 08/25/16 16:00 187/85 08/25/16 11:48 97.6 113 21 186/105 96 Room Air 08/25/16 08:09 97.5 98 21 154/76 97 Room Air 08/25/16 07:40 98 18 Room Air 08/25/16 07:20 146/91 08/25/16 04:00 98.4 96 18 164/91 96 Room Air 08/25/16 00:09 98.8 92 19 132/92 96 Room Air Intake and Output 08/24/16 08/25/16 19:00 07:00 Intake Total 1623.3 ml Output Total 700 ml 500 ml Balance -700 ml 1123.3 ml IV Total 983.3 ml Tube Feeding 640 ml Output Urine Total 700 ml 500 ml # Bowel Movements 1 Objective Lines, tubes and drains: peripheral, central line HEENT: normocephalic, atraumatic Neck: non-tender Respiratory/Chest: chest wall non-tender Cardiovascular/Chest: normal peripheral pulses Abdomen: normal bowel sounds, feeding tube, other Genitourinary/Rectal: normal genital exam Extremities: normal range of motion, non-tender Microbiology Date/Time Source Procedure Growth Status 08/23/16 18:10 Blood Blood Culture - Preliminary NO GROWTH AFTER 24 HOURS Resulted 08/23/16 18:00 Blood Blood Culture - Preliminary NO GROWTH AFTER 24 HOURS Resulted 08/23/16 19:20 Urine,Clean Catch Urine Culture - Final Klebsiella Pneumoniae Esbl Complete 08/23/16 19:45 Rectum VRE Culture - Final Enterococcus Faecalis - Vre Complete Laboratory Tests 08/25/16 03:45: Urine Eosinophils None seen 08/25/16 07:30: White Blood Count 13.3H, Red Blood Count 3.25L, Hemoglobin 9.7L, Hematocrit 29.8L, Mean Corpuscular Volume 92, Mean Corpuscular Hemoglobin 29.9, Mean Corpuscular Hemoglobin Concent 32.5, Red Cell Distribution Width 15.5H, Platelet Count 222, Mean Platelet Volume 8.2, Neutrophils (%) (Auto) 83.2H, Lymphocytes (%) (Auto) 10.1L, Monocytes (%) (Auto) 5.6, Eosinophils (%) (Auto) 0.4, Basophils (%) (Auto) 0.8, Sodium Level 141, Potassium Level 3.1L, Chloride Level 102, Carbon Dioxide Level 20, Anion Gap 19H, Blood Urea Nitrogen 37H, Creatinine 1.0H, Estimat Glomerular Filtration Rate 55.0, Glucose Level 271#H, Calcium Level 8.9 Current Medications Medications (Trade) Dose Ordered Sig/Nicholas Route PRN Reason Start Time Stop Time Status Last Admin Dose Admin Acetaminophen (Tylenol) 500 mg Q6H PRN ORAL Mild Pain/Temp > 100.5 08/25/16 17:15 09/24/16 17:14 Albuterol/ Ipratropium (DuoNeb 0.5-3(2.5)mg/3ml) 3 ml Q4H PRN HHN Shortness of Breath 08/25/16 04:00 08/30/16 03:59 Atorvastatin Calcium (Lipitor) 40 mg BEDTIME GT 08/25/16 21:00 09/24/16 20:59 08/25/16 20:45 Benazepril HCl (Lotensin) 40 mg DAILY GT 08/25/16 15:15 09/24/16 15:14 08/25/16 16:00 Carvedilol (Coreg) 3.125 mg EVERY 12 HOURS GT 08/25/16 16:00 09/24/16 15:59 08/25/16 16:00 Clonazepam (KlonoPIN) 1 mg Q6H PRN GT For Anxiety 08/25/16 17:15 09/01/16 17:14 Clonidine HCl (Catapres) 0.1 mg Q4H PRN ORAL SBP>160 08/25/16 15:15 09/24/16 15:14 08/25/16 20:44 Dextrose (Dextrose 50%) STAT PRN IV Hypoglycemia 08/25/16 20:00 09/24/16 19:59 Epoetin Mau (Procrit (for non ESRD use)) 6,000 units MON-MON-MON SUBQ 08/26/16 21:00 09/25/16 20:59 Fenofibrate (Tricor) 54 mg DAILY ORAL 08/26/16 09:00 09/25/16 08:59 Ferrous Sulfate (Feosol) 300 mg THREE TIMES A DAY GT 08/25/16 18:00 09/24/16 17:59 08/25/16 18:06 Heparin Sodium (Porcine) (Heparin 5000 units/ml) 5,000 units EVERY 12 HOURS SUBQ 08/25/16 09:00 09/24/16 08:59 08/25/16 20:44 Insulin Aspart (NovoLOG) Q6HR SUBQ 08/25/16 18:00 09/24/16 17:59 08/25/16 18:07 Magnesium Hydroxide (Mom) 30 ml DAILYPRN PRN ORAL Constipation 08/25/16 17:15 09/24/16 17:14 Meropenem/Sodium Chloride (Merrem/Sodium Chloride) 110 ml @ 220 mls/hr Q8HR IVPB 08/25/16 12:00 08/30/16 11:59 08/25/16 22:39 Morphine Sulfate (Morphine Sulfate) 2 mg Q4H PRN IVP Severe Pain (Pain Scale 7-10) 08/25/16 17:42 09/01/16 04:59 Multivitamins (Multivitamins) 1 tab DAILY ORAL 08/26/16 09:00 09/25/16 08:59 Nitroglycerin (Ntg) 0.4 mg Q5MIN X 3 DOSES PRN SL Prn Chest Pain 08/25/16 01:00 09/24/16 00:59 Olanzapine (ZyPREXA) 5 mg DAILY ORAL 08/26/16 09:00 09/25/16 08:59 Ondansetron HCl (Zofran) 4 mg Q6H PRN IVP Nausea & Vomiting 08/25/16 02:00 09/24/16 01:59 Polyethylene Glycol (Miralax) 17 gm DAILYPRN PRN ORAL Constipation 08/25/16 20:00 09/24/16 19:59 Sodium Chloride (Sodium Chloride 1000ml bag) 1,000 ml @ 100 mls/hr Q10H IVLG 08/25/16 01:00 09/24/16 00:59 08/25/16 20:43 Temazepam 15 mg 15 mg HSPRN PRN ORAL Insomnia 08/25/16 20:00 09/01/16 19:59 Tramadol HCl (Ultram) 50 mg Q6H PRN ORAL Moderate Pain (Pain Scale 4-6) 08/25/16 17:15 09/01/16 17:14 08/25/16 20:44 Valproic Acid (Depakene) 250 mg TID GT 08/25/16 18:00 09/24/16 17:59 08/25/16 18:06 MAGDA SAUL Aug 25, 2016 23:29
--- NOTE | 2016-08-25 23:39 | Nephrology Progress Note ---
Subjective Subjective see consult note. Objective Objective Last 24 Hour Vital Signs Date Time Temp Pulse Resp B/P Pulse Ox O2 Delivery O2 Flow Rate FiO2 08/25/16 22:05 95 153/71 08/25/16 20:44 175/103 08/25/16 19:12 101 18 Room Air 08/25/16 19:00 98.0 99 20 175/103 98 Room Air 08/25/16 16:00 98.8 111 20 187/78 96 Room Air 08/25/16 16:00 187/85 08/25/16 16:00 112 187/85 08/25/16 16:00 187/85 08/25/16 11:48 97.6 113 21 186/105 96 Room Air 08/25/16 08:09 97.5 98 21 154/76 97 Room Air 08/25/16 07:40 98 18 Room Air 08/25/16 07:20 146/91 08/25/16 04:00 98.4 96 18 164/91 96 Room Air 08/25/16 00:09 98.8 92 19 132/92 96 Room Air Intake and Output 08/24/16 08/25/16 19:00 07:00 Intake Total 1623.3 ml Output Total 700 ml 500 ml Balance -700 ml 1123.3 ml IV Total 983.3 ml Tube Feeding 640 ml Output Urine Total 700 ml 500 ml # Bowel Movements 1 Laboratory Tests 08/25/16 03:45: Urine Eosinophils None seen 08/25/16 07:30: White Blood Count 13.3H, Red Blood Count 3.25L, Hemoglobin 9.7L, Hematocrit 29.8L, Mean Corpuscular Volume 92, Mean Corpuscular Hemoglobin 29.9, Mean Corpuscular Hemoglobin Concent 32.5, Red Cell Distribution Width 15.5H, Platelet Count 222, Mean Platelet Volume 8.2, Neutrophils (%) (Auto) 83.2H, Lymphocytes (%) (Auto) 10.1L, Monocytes (%) (Auto) 5.6, Eosinophils (%) (Auto) 0.4, Basophils (%) (Auto) 0.8, Sodium Level 141, Potassium Level 3.1L, Chloride Level 102, Carbon Dioxide Level 20, Anion Gap 19H, Blood Urea Nitrogen 37H, Creatinine 1.0H, Estimat Glomerular Filtration Rate 55.0, Glucose Level 271#H, Calcium Level 8.9 Height (Feet): 5 Height (Inches): 3.00 Weight (Pounds): 153 CHRISSIE CLARK Aug 25, 2016 23:39
[2016-08-26] VITALS (10 sets, daily range): BP systolic 136–194; BP diastolic 67–100
[2016-08-26] MEDS: NovoLOG Insulin Flexpen SUBQ SCH ×5 (00:13→23:49)
[2016-08-26] MEDS: Morphine Sulfate 2mg/ml Inj IVP PRN (03:17)
[2016-08-26] MEDS: Meropenem 1 GM in NS 110 ML IVPB SCH ×3 (06:22→21:31)
[2016-08-26 07:28] LABS: MEAN CORPUSCULAR HEMOGLOBIN 29.6 PG (27.0-31.0); MEAN CORPUSCULAR HGB CONC 32.4 G/DL (32.0-36.0); MEAN CORPUSCULAR VOLUME 91 FL (80-99); MEAN PLATELET VOLUME 7.4 FL (6.5-10.1); PLATELET COUNT 264 K/UL (150-450); RED BLOOD COUNT 3.43 M/UL (4.20-5.40); RED CELL DISTRIBUTION WIDTH 15.3 % (11.6-14.8); WHITE BLOOD COUNT 13.5 K/UL (4.8-10.8)
[2016-08-26 07:36] LABS: ALANINE AMINOTRANSFERASE 12 U/L (3-33); ALBUMIN/GLOBULIN RATIO 1.1 (1.0-2.7); ANION GAP 17 (5-15); ASPARTATE AMINO TRANSFERASE 12 U/L (5-40); CALCIUM 9.3 mg/dL (8.6-10.2); CARBON DIOXIDE 25 mEQ/L (20-30); CHLORIDE 104 mEQ/L (98-107); CREATININE 0.9 mg/dL (0.5-0.9); GLOMERULAR FILTRATION RATE > 60 mL/min (>60); HEMOLYSIS 10; PHOSPHORUS 2.5 mg/dL (2.5-4.8); POTASSIUM 4.1 mEQ/L (3.4-4.9); SODIUM 146 mEQ/L (135-145); TOTAL PROTEIN 6.6 g/dL (6.6-8.7)
[2016-08-26] MEDS: Ferrous Sulfate 300 MG/5 ML UDC GT SCH ×3 (08:04→18:23)
[2016-08-26] MEDS: Heparin 5000 units/ml inj SUBQ SCH ×2 (08:05→20:19)
[2016-08-26 08:41] LABS: BAND NEUTROPHILS % (MANUAL) 0 % (0-8); BASOPHILS % (MANUAL) 0 % (0-2); EOSINOPHILS % (MANUAL) 0 % (0-3); LYMPHOCYTES % (MANUAL) 15 % (20-45); NEUTROPHILS % (MANUAL) 80 % (45-75); PLATELET ESTIMATE ADEQUATE; TOTAL CELLS COUNTED 100
[2016-08-26 08:42] LABS: HYPOCHROMASIA 1+; PLATELET MORPHOLOGY NORMAL
[2016-08-26] MEDS: Valproic Acid 250mg/5ml Liquid GT SCH ×3 (09:16→18:23)
[2016-08-26] MEDS ORDERED: Tubing IV Secondary IV ONE (10:36)
--- NOTE | 2016-08-26 15:34 | Internal Med Progress Note ---
Subjective Date of Service: Aug 26, 2016 Physician Name Brad Abreu Attending Physician Pete Hawkins MD Current Medications Medications (Trade) Dose Ordered Sig/Nicholas Route PRN Reason Start Time Stop Time Status Last Admin Dose Admin Acetaminophen (Tylenol) 500 mg Q6H PRN ORAL Mild Pain/Temp > 100.5 08/25/16 17:15 09/24/16 17:14 Albuterol/ Ipratropium (DuoNeb 0.5-3(2.5)mg/3ml) 3 ml Q4H PRN HHN Shortness of Breath 08/25/16 04:00 08/30/16 03:59 Atorvastatin Calcium (Lipitor) 40 mg BEDTIME GT 08/25/16 21:00 09/24/16 20:59 08/25/16 20:45 Benazepril HCl (Lotensin) 40 mg DAILY GT 08/25/16 15:15 09/24/16 15:14 08/26/16 09:16 Carvedilol (Coreg) 3.125 mg EVERY 12 HOURS GT 08/25/16 16:00 09/24/16 15:59 08/26/16 09:16 Clonazepam (KlonoPIN) 1 mg Q6H PRN GT For Anxiety 08/25/16 17:15 09/01/16 17:14 Clonidine HCl (Catapres) 0.1 mg Q4H PRN ORAL SBP>160 08/25/16 15:15 09/24/16 15:14 08/26/16 12:29 Dextrose (Dextrose 50%) STAT PRN IV Hypoglycemia 08/25/16 20:00 09/24/16 19:59 Epoetin Mau (Procrit (for non ESRD use)) 6,000 units MON-MON-MON SUBQ 08/26/16 21:00 09/25/16 20:59 Fenofibrate (Tricor) 54 mg DAILY ORAL 08/26/16 09:00 09/25/16 08:59 08/26/16 09:15 Ferrous Sulfate (Feosol) 300 mg THREE TIMES A DAY GT 08/25/16 18:00 09/24/16 17:59 08/26/16 12:28 Heparin Sodium (Porcine) (Heparin 5000 units/ml) 5,000 units EVERY 12 HOURS SUBQ 08/25/16 09:00 09/24/16 08:59 08/26/16 08:05 Insulin Aspart (NovoLOG) Q6HR SUBQ 08/25/16 18:00 09/24/16 17:59 08/26/16 12:27 Magnesium Hydroxide (Mom) 30 ml DAILYPRN PRN ORAL Constipation 08/25/16 17:15 09/24/16 17:14 Meropenem/Sodium Chloride (Merrem/Sodium Chloride) 110 ml @ 220 mls/hr Q8HR IVPB 08/25/16 12:00 08/30/16 11:59 08/26/16 13:51 Morphine Sulfate (Morphine Sulfate) 2 mg Q4H PRN IVP Severe Pain (Pain Scale 7-10) 08/25/16 17:42 09/01/16 04:59 08/26/16 03:17 Multivitamins (Multivitamins) 1 tab DAILY ORAL 08/26/16 09:00 09/25/16 08:59 08/26/16 08:04 Nitroglycerin (Ntg) 0.4 mg Q5MIN X 3 DOSES PRN SL Prn Chest Pain 08/25/16 01:00 09/24/16 00:59 Olanzapine (ZyPREXA) 5 mg DAILY ORAL 08/26/16 09:00 09/25/16 08:59 08/26/16 08:04 Ondansetron HCl (Zofran) 4 mg Q6H PRN IVP Nausea & Vomiting 08/25/16 02:00 09/24/16 01:59 Polyethylene Glycol (Miralax) 17 gm DAILYPRN PRN ORAL Constipation 08/25/16 20:00 09/24/16 19:59 Temazepam 15 mg 15 mg HSPRN PRN ORAL Insomnia 08/25/16 20:00 09/01/16 19:59 Tramadol HCl (Ultram) 50 mg Q6H PRN ORAL Moderate Pain (Pain Scale 4-6) 08/25/16 17:15 09/01/16 17:14 08/25/16 20:44 Valproic Acid (Depakene) 250 mg TID GT 08/25/16 18:00 09/24/16 17:59 08/26/16 12:27 Allergies: Coded Allergies: ASPIRIN (Unverified Allergy, Unknown, 08/23/16) NIACIN (Unverified Allergy, Unknown, 08/23/16) PENICILLINS (Verified Allergy, Unknown, 12/18/08) ROS Limited/Unobtainable: Yes Subjective 71 YO F admitted with altered mental status; now UTI. Cover for Int Olu-Dr Hawkins. Objective Last Vital Signs Date Time Temp Pulse Resp B/P Pulse Ox O2 Delivery O2 Flow Rate FiO2 08/26/16 14:30 155/83 08/26/16 13:30 98.1 98 22 95 Room Air 08/23/16 19:47 2.0 Laboratory Tests Test 08/26/16 06:30 White Blood Count 13.5 K/UL (4.8-10.8) H Red Blood Count 3.43 M/UL (4.20-5.40) L Hemoglobin 10.2 G/DL (12.0-16.0) L Hematocrit 31.4 % (37.0-47.0) L Mean Corpuscular Volume 91 FL (80-99) Mean Corpuscular Hemoglobin 29.6 PG (27.0-31.0) Mean Corpuscular Hemoglobin Concent 32.4 G/DL (32.0-36.0) Red Cell Distribution Width 15.3 % (11.6-14.8) H Platelet Count 264 K/UL (150-450) Mean Platelet Volume 7.4 FL (6.5-10.1) Neutrophils (%) (Auto) % (45.0-75.0) Lymphocytes (%) (Auto) % (20.0-45.0) Monocytes (%) (Auto) % (1.0-10.0) Eosinophils (%) (Auto) % (0.0-3.0) Basophils (%) (Auto) % (0.0-2.0) Differential Total Cells Counted 100 Neutrophils % (Manual) 80 % (45-75) H Lymphocytes % (Manual) 15 % (20-45) L Monocytes % (Manual) 5 % (1-10) Eosinophils % (Manual) 0 % (0-3) Basophils % (Manual) 0 % (0-2) Band Neutrophils 0 % (0-8) Platelet Estimate Adequate Platelet Morphology Normal Hypochromasia 1+ Sodium Level 146 mEQ/L (135-145) H Potassium Level 4.1 mEQ/L (3.4-4.9) Chloride Level 104 mEQ/L (98-107) Carbon Dioxide Level 25 mEQ/L (20-30) Anion Gap 17 (5-15) H Blood Urea Nitrogen 36 mg/dL (7-23) H Creatinine 0.9 mg/dL (0.5-0.9) Estimat Glomerular Filtration Rate > 60 mL/min (>60) Glucose Level 318 mg/dL (74-106) H Calcium Level 9.3 mg/dL (8.6-10.2) Phosphorus Level 2.5 mg/dL (2.5-4.8) Magnesium Level 2.0 mg/dL (1.7-2.5) Total Bilirubin < 0.2 mg/dL (0.0-1.2) Aspartate Amino Transf (AST/SGOT) 12 U/L (5-40) Alanine Aminotransferase (ALT/SGPT) 12 U/L (3-33) Alkaline Phosphatase 87 U/L (35-104) Total Protein 6.6 g/dL (6.6-8.7) Albumin 3.5 g/dL (3.5-5.2) Globulin 3.1 g/dL Albumin/Globulin Ratio 1.1 (1.0-2.7) Microbiology Date/Time Source Procedure Growth Status 08/23/16 18:10 Blood Blood Culture - Preliminary NO GROWTH AFTER 48 HOURS Resulted 08/23/16 18:00 Blood Blood Culture - Preliminary NO GROWTH AFTER 48 HOURS Resulted 08/23/16 19:45 Nasal Nares MRSA Culture - Final NO METHICILLIN RESISTANT STAPH AUREUS... Complete 08/23/16 19:20 Urine,Clean Catch Urine Culture - Final Klebsiella Pneumoniae Esbl Complete 08/23/16 19:45 Rectum VRE Culture - Final Enterococcus Faecalis - Vre Complete Intake and Output 08/25/16 08/26/16 19:00 07:00 Intake Total 1235 ml 730 ml Output Total 1000 ml 1600 ml Balance 235 ml -870 ml Intake Oral 0 ml Free Water 160 ml 160 ml IV Total 310 ml Tube Feeding 765 ml 570 ml Output Urine Total 1000 ml 1600 ml # Bowel Movements 1 1 Objective General Appearance: WD/WN, no apparent distress, alert EENT: PERRL/EOMI, normal ENT inspection Neck: non-tender, normal alignment, supple Cardiovascular: normal peripheral pulses, normal rate, regular rhythm, no gallop/murmur, no JVD Respiratory/Chest: chest wall non-tender, lungs clear, normal breath sounds, no respiratory distress, no accessory muscle use Abdomen: normal bowel sounds, non tender, soft, no organomegaly, no mass Extremities: normal range of motion, non-tender Neurologic: color strainer II-XII grossly normal, no motor/sensory deficits Skin: normal pigmentation, warm/dry Assessment/Plan Problem List: (1) CAD (coronary artery disease) (2) Schizoaffective disorder, bipolar type (3) Dysphagia (4) Hypercholesterolemia (5) UTI (urinary tract infection) Assessment & Plan: Multi drug resistant Klebsiella-See ID note. 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 Cont meropenem per ID (7) Altered mental status (8) Leukocytosis (9) Diabetes mellitus type II, uncontrolled Assessment & Plan: Continue novolog sliding scale. (10) Renal failure (11) HTN (hypertension) Assessment & Plan: Uncontrolled. Increase coreg. Cont lotesnin Status: not improved BRAD ABREU Aug 26, 2016 15:34
--- NOTE | 2016-08-26 20:35 | Pulmonology Progress Note ---
Assessment/Plan Problems: (1) Sepsis (2) ATN (acute tubular necrosis) (3) HTN (hypertension) (4) CVA (cerebral vascular accident) (5) Feeding by G-tube (6) Diabetes Assessment/Plan continue abx no new cultures iv fluids tolerating diet dvt prohylaxis aspiration precaution Subjective ROS Limited/Unobtainable: No Interval Events: no change, opens eyes, looks comfortable Allergies: Coded Allergies: ASPIRIN (Unverified Allergy, Unknown, 08/23/16) NIACIN (Unverified Allergy, Unknown, 08/23/16) PENICILLINS (Verified Allergy, Unknown, 12/18/08) Objective Last 24 Hour Vital Signs Date Time Temp Pulse Resp B/P Pulse Ox O2 Delivery O2 Flow Rate FiO2 08/26/16 20:22 177/81 08/26/16 20:20 96 177/81 08/26/16 19:49 102 18 Room Air 08/26/16 18:00 152/78 08/26/16 16:25 183/76 08/26/16 16:00 98.6 96 16 183/76 96 Room Air 08/26/16 14:30 155/83 08/26/16 13:30 98.1 98 22 161/96 95 Room Air 08/26/16 12:29 181/78 08/26/16 11:58 98.2 102 22 181/78 97 Room Air 08/26/16 09:16 106 194/100 08/26/16 09:16 194/100 08/26/16 08:28 103 18 Room Air 08/26/16 08:15 98.6 106 22 194/100 94 Room Air 08/26/16 07:52 194/100 08/26/16 04:00 97.5 99 20 155/90 97 Room Air 08/26/16 00:00 97.9 96 20 141/68 97 Room Air 08/25/16 22:05 95 153/71 08/25/16 20:44 175/103 Intake and Output 08/25/16 08/26/16 19:00 07:00 Intake Total 1235 ml 730 ml Output Total 1000 ml 1600 ml Balance 235 ml -870 ml Intake Oral 0 ml Free Water 160 ml 160 ml IV Total 310 ml Tube Feeding 765 ml 570 ml Output Urine Total 1000 ml 1600 ml # Bowel Movements 1 1 Objective Lines, tubes and drains: peripheral, central line HEENT: normocephalic, atraumatic Neck: non-tender Respiratory/Chest: chest wall non-tender Cardiovascular/Chest: normal peripheral pulses Abdomen: normal bowel sounds, feeding tube, other Genitourinary/Rectal: normal genital exam Extremities: normal range of motion, non-tender Laboratory Tests 08/26/16 06:30: White Blood Count 13.5H, Red Blood Count 3.43L, Hemoglobin 10.2L, Hematocrit 31.4L, Mean Corpuscular Volume 91, Mean Corpuscular Hemoglobin 29.6, Mean Corpuscular Hemoglobin Concent 32.4, Red Cell Distribution Width 15.3H, Platelet Count 264, Mean Platelet Volume 7.4, Neutrophils (%) (Auto) , Lymphocytes (%) (Auto) , Monocytes (%) (Auto) , Eosinophils (%) (Auto) , Basophils (%) (Auto) , Differential Total Cells Counted 100, Neutrophils % ( Manual) 80H, Lymphocytes % (Manual) 15L, Monocytes % (Manual) 5, Eosinophils % ( Manual) 0, Basophils % (Manual) 0, Band Neutrophils 0, Platelet Estimate Adequate, Platelet Morphology Normal, Hypochromasia 1+, Sodium Level 146H, Potassium Level 4.1, Chloride Level 104, Carbon Dioxide Level 25, Anion Gap 17H , Blood Urea Nitrogen 36H, Creatinine 0.9, Estimat Glomerular Filtration Rate > 60, Glucose Level 318H, Calcium Level 9.3, Phosphorus Level 2.5, Magnesium Level 2.0, Total Bilirubin < 0.2, Aspartate Amino Transf (AST/SGOT) 12, Alanine Aminotransferase (ALT/SGPT) 12, Alkaline Phosphatase 87, Total Protein 6.6, Albumin 3.5, Globulin 3.1, Albumin/Globulin Ratio 1.1 Current Medications Medications (Trade) Dose Ordered Sig/Nicholas Route PRN Reason Start Time Stop Time Status Last Admin Dose Admin Acetaminophen (Tylenol) 500 mg Q6H PRN ORAL Mild Pain/Temp > 100.5 08/25/16 17:15 09/24/16 17:14 Albuterol/ Ipratropium (DuoNeb 0.5-3(2.5)mg/3ml) 3 ml Q4H PRN HHN Shortness of Breath 08/25/16 04:00 08/30/16 03:59 Atorvastatin Calcium (Lipitor) 40 mg BEDTIME GT 08/25/16 21:00 09/24/16 20:59 08/26/16 20:20 Benazepril HCl (Lotensin) 40 mg DAILY GT 08/25/16 15:15 09/24/16 15:14 08/26/16 09:16 Carvedilol (Coreg) 6.25 mg EVERY 12 HOURS GT 08/26/16 21:00 09/25/16 20:59 08/26/16 20:20 Clonazepam (KlonoPIN) 1 mg Q6H PRN GT For Anxiety 08/25/16 17:15 09/01/16 17:14 Clonidine HCl (Catapres) 0.1 mg Q4H PRN ORAL SBP>160 08/25/16 15:15 09/24/16 15:14 08/26/16 20:22 Dextrose (Dextrose 50%) STAT PRN IV Hypoglycemia 08/25/16 20:00 09/24/16 19:59 Epoetin Mau (Procrit (for non ESRD use)) 6,000 units MON-MON-MON SUBQ 08/26/16 21:00 09/25/16 20:59 Fenofibrate (Tricor) 54 mg DAILY ORAL 08/26/16 09:00 09/25/16 08:59 08/26/16 09:15 Ferrous Sulfate (Feosol) 300 mg THREE TIMES A DAY GT 08/25/16 18:00 09/24/16 17:59 08/26/16 18:23 Heparin Sodium (Porcine) (Heparin 5000 units/ml) 5,000 units EVERY 12 HOURS SUBQ 08/25/16 09:00 09/24/16 08:59 08/26/16 20:19 Insulin Aspart (NovoLOG) Q6HR SUBQ 08/25/16 18:00 09/24/16 17:59 08/26/16 18:23 Magnesium Hydroxide (Mom) 30 ml DAILYPRN PRN ORAL Constipation 08/25/16 17:15 09/24/16 17:14 Meropenem/Sodium Chloride (Merrem/Sodium Chloride) 110 ml @ 220 mls/hr Q8HR IVPB 08/25/16 12:00 08/30/16 11:59 08/26/16 13:51 Morphine Sulfate (Morphine Sulfate) 2 mg Q4H PRN IVP Severe Pain (Pain Scale 7-10) 08/25/16 17:42 09/01/16 04:59 08/26/16 03:17 Multivitamins (Multivitamins) 1 tab DAILY ORAL 08/26/16 09:00 09/25/16 08:59 08/26/16 08:04 Nitroglycerin (Ntg) 0.4 mg Q5MIN X 3 DOSES PRN SL Prn Chest Pain 08/25/16 01:00 09/24/16 00:59 Olanzapine (ZyPREXA) 5 mg DAILY ORAL 08/26/16 09:00 09/25/16 08:59 08/26/16 08:04 Ondansetron HCl (Zofran) 4 mg Q6H PRN IVP Nausea & Vomiting 08/25/16 02:00 09/24/16 01:59 Polyethylene Glycol (Miralax) 17 gm DAILYPRN PRN ORAL Constipation 08/25/16 20:00 09/24/16 19:59 Temazepam 15 mg 15 mg HSPRN PRN ORAL Insomnia 08/25/16 20:00 09/01/16 19:59 Tramadol HCl (Ultram) 50 mg Q6H PRN ORAL Moderate Pain (Pain Scale 4-6) 08/25/16 17:15 09/01/16 17:14 08/25/16 20:44 Valproic Acid (Depakene) 250 mg TID GT 08/25/16 18:00 09/24/16 17:59 08/26/16 18:23 MAGDA SAUL Aug 26, 2016 20:35
--- NOTE | 2016-08-26 21:20 | Consultation ---
History of Present Illness General Date patient seen: Aug 25, 2016 Chief Complaint: Altered Level of Consciousness Referring physician: Dr. Hansen Reason for Consultation: HUDSON, Hypokalemia Present Illness HPI Pt is a 71 year of female with PMHx of Dysphagia, sacral ulcer, HTN, DM, Gtube , depression brought in by paramedics from [facility] for more altered mental status "more altered than usual. Apparently she was less responsive. Initial evaluation in the ER revealed that she has acute sepsis and ATN. Therefore she is admitted to telemetry for further evaluation.. she is awake, not communicating , looks comfortable. Allergies: Coded Allergies: ASPIRIN (Unverified Allergy, Unknown, 08/23/16) NIACIN (Unverified Allergy, Unknown, 08/23/16) PENICILLINS (Verified Allergy, Unknown, 12/18/08) Medication History Scheduled Atorvastatin Calcium* (Lipitor*), 40 MG ORAL BEDTIME, (Reported) Benazepril Hcl* (Benazepril Hcl*), 40 MG ORAL DAILY, (Reported) Benazepril Hcl* (Benazepril Hcl*), 40 MG GT DAILY, (Reported) Carvedilol* (Carvedilol*), 3.125 MG GT EVERY 12 HOURS, (Reported) Clonidine Hcl* (Catapres*), 0.1 MG ORAL Q4HR, (Reported) Epoetin Mau (Procrit), 6,000 UNIT SUBQ 3XW, (Reported) Ertapenem Sodium* (INVanz*), 1 GM IVPB Q24H, (Reported) Ertapenem Sodium* (INVanz*), 1 GM IVPB Q24H, (Reported) Fenofibrate Nanocrystallized (Tricor), 48 MG GT DAILY, (Reported) Ferrous Sulfate (Ferrous Sulfate), 220 MG PO DAILY, (Reported) Insulin Glargine (Lantus), 0 SUBQ BEDTIME, (Reported) Multivitamins* (Multivitamins*), 1 TAB ORAL DAILY, (Reported) Olanzapine (Olanzapine), 5 MG ORAL DAILY, (Reported) Tramadol Hcl (Tramadol Hcl), 50 MG ORAL Q8HR, (Reported) Valproate Sodium (Valproic Acid), 250 MG PO TID, (Reported) Scheduled PRN Acetaminophen* (Tylenol Extra Strength*), 500 MG GT Q6H PRN for Mild Pain/Temp > 100.5, (Reported) Clonazepam* (Klonopin*), 1 MG GT Q6H PRN for For Anxiety, (Reported) Magnesium Hydroxide* (Milk Of Magnesia*), 30 ML ORAL DAILY PRN for Constipation, (Reported) Miscellaneous Medications Cranberry Extract (Cranberry), 425 MG GT, (Reported) Icosapent Ethyl (Vascepa), 1 GM GT, (Reported) Insulin Lispro (Humalog), 0 SUBQ, (Reported) Patient History Limited by: medical condition History Provided By: Medical Record Healthcare decision maker Resuscitation status Advanced Directive on File No Past Medical/Surgical History Past Medical/Surgical History: (1) Diabetes mellitus type II, uncontrolled (2) Altered mental status (3) Dysphagia (4) HTN (hypertension) (5) Feeding by G-tube (6) Schizoaffective disorder, bipolar type (7) CAD (coronary artery disease) (8) Hypercholesterolemia Social History Social History: (1) No illicit drug use (2) Non-smoker (3) No history of alcohol use Review of Systems ROS Narrative Unable to obtain due to pt's mental state Physical Exam Last 24 Hour Vital Signs Date Time Temp Pulse Resp B/P Pulse Ox O2 Delivery O2 Flow Rate FiO2 08/26/16 20:22 177/81 08/26/16 20:20 96 177/81 08/26/16 19:49 102 18 Room Air 08/26/16 18:00 152/78 08/26/16 16:25 183/76 08/26/16 16:00 98.6 96 16 183/76 96 Room Air 08/26/16 14:30 155/83 08/26/16 13:30 98.1 98 22 161/96 95 Room Air 08/26/16 12:29 181/78 08/26/16 11:58 98.2 102 22 181/78 97 Room Air 08/26/16 09:16 106 194/100 08/26/16 09:16 194/100 08/26/16 08:28 103 18 Room Air 08/26/16 08:15 98.6 106 22 194/100 94 Room Air 08/26/16 07:52 194/100 08/26/16 04:00 97.5 99 20 155/90 97 Room Air 08/26/16 00:00 97.9 96 20 141/68 97 Room Air 08/25/16 22:05 95 153/71 Intake and Output 08/25/16 08/26/16 19:00 07:00 Intake Total 1235 ml 730 ml Output Total 1000 ml 1600 ml Balance 235 ml -870 ml Intake Oral 0 ml Free Water 160 ml 160 ml IV Total 310 ml Tube Feeding 765 ml 570 ml Output Urine Total 1000 ml 1600 ml # Bowel Movements 1 1 Laboratory Tests Test 08/26/16 06:30 White Blood Count 13.5 K/UL (4.8-10.8) H Red Blood Count 3.43 M/UL (4.20-5.40) L Hemoglobin 10.2 G/DL (12.0-16.0) L Hematocrit 31.4 % (37.0-47.0) L Mean Corpuscular Volume 91 FL (80-99) Mean Corpuscular Hemoglobin 29.6 PG (27.0-31.0) Mean Corpuscular Hemoglobin Concent 32.4 G/DL (32.0-36.0) Red Cell Distribution Width 15.3 % (11.6-14.8) H Platelet Count 264 K/UL (150-450) Mean Platelet Volume 7.4 FL (6.5-10.1) Neutrophils (%) (Auto) % (45.0-75.0) Lymphocytes (%) (Auto) % (20.0-45.0) Monocytes (%) (Auto) % (1.0-10.0) Eosinophils (%) (Auto) % (0.0-3.0) Basophils (%) (Auto) % (0.0-2.0) Differential Total Cells Counted 100 Neutrophils % (Manual) 80 % (45-75) H Lymphocytes % (Manual) 15 % (20-45) L Monocytes % (Manual) 5 % (1-10) Eosinophils % (Manual) 0 % (0-3) Basophils % (Manual) 0 % (0-2) Band Neutrophils 0 % (0-8) Platelet Estimate Adequate Platelet Morphology Normal Hypochromasia 1+ Sodium Level 146 mEQ/L (135-145) H Potassium Level 4.1 mEQ/L (3.4-4.9) Chloride Level 104 mEQ/L (98-107) Carbon Dioxide Level 25 mEQ/L (20-30) Anion Gap 17 (5-15) H Blood Urea Nitrogen 36 mg/dL (7-23) H Creatinine 0.9 mg/dL (0.5-0.9) Estimat Glomerular Filtration Rate > 60 mL/min (>60) Glucose Level 318 mg/dL (74-106) H Calcium Level 9.3 mg/dL (8.6-10.2) Phosphorus Level 2.5 mg/dL (2.5-4.8) Magnesium Level 2.0 mg/dL (1.7-2.5) Total Bilirubin < 0.2 mg/dL (0.0-1.2) Aspartate Amino Transf (AST/SGOT) 12 U/L (5-40) Alanine Aminotransferase (ALT/SGPT) 12 U/L (3-33) Alkaline Phosphatase 87 U/L (35-104) Total Protein 6.6 g/dL (6.6-8.7) Albumin 3.5 g/dL (3.5-5.2) Globulin 3.1 g/dL Albumin/Globulin Ratio 1.1 (1.0-2.7) Height (Feet): 5 Height (Inches): 3.00 Weight (Pounds): 153 Medications Current Medications Medications (Trade) Dose Ordered Sig/Nicholas Route PRN Reason Start Time Stop Time Status Last Admin Dose Admin Acetaminophen (Tylenol) 500 mg Q6H PRN ORAL Mild Pain/Temp > 100.5 08/25/16 17:15 09/24/16 17:14 Albuterol/ Ipratropium (DuoNeb 0.5-3(2.5)mg/3ml) 3 ml Q4H PRN HHN Shortness of Breath 08/25/16 04:00 08/30/16 03:59 Atorvastatin Calcium (Lipitor) 40 mg BEDTIME GT 08/25/16 21:00 09/24/16 20:59 08/26/16 20:20 Benazepril HCl (Lotensin) 40 mg DAILY GT 08/25/16 15:15 09/24/16 15:14 08/26/16 09:16 Carvedilol (Coreg) 6.25 mg EVERY 12 HOURS GT 08/26/16 21:00 09/25/16 20:59 08/26/16 20:20 Clonazepam (KlonoPIN) 1 mg Q6H PRN GT For Anxiety 08/25/16 17:15 09/01/16 17:14 Clonidine HCl (Catapres) 0.1 mg Q4H PRN ORAL SBP>160 08/25/16 15:15 09/24/16 15:14 08/26/16 20:22 Dextrose (Dextrose 50%) STAT PRN IV Hypoglycemia 08/25/16 20:00 09/24/16 19:59 Epoetin Mau (Procrit (for non ESRD use)) 6,000 units MON-MON-MON SUBQ 08/26/16 21:00 09/25/16 20:59 Fenofibrate (Tricor) 54 mg DAILY ORAL 08/26/16 09:00 09/25/16 08:59 08/26/16 09:15 Ferrous Sulfate (Feosol) 300 mg THREE TIMES A DAY GT 08/25/16 18:00 09/24/16 17:59 08/26/16 18:23 Heparin Sodium (Porcine) (Heparin 5000 units/ml) 5,000 units EVERY 12 HOURS SUBQ 08/25/16 09:00 09/24/16 08:59 08/26/16 20:19 Insulin Aspart (NovoLOG) Q6HR SUBQ 08/25/16 18:00 09/24/16 17:59 08/26/16 18:23 Magnesium Hydroxide (Mom) 30 ml DAILYPRN PRN ORAL Constipation 08/25/16 17:15 09/24/16 17:14 Meropenem/Sodium Chloride (Merrem/Sodium Chloride) 110 ml @ 220 mls/hr Q8HR IVPB 08/25/16 12:00 08/30/16 11:59 08/26/16 13:51 Morphine Sulfate (Morphine Sulfate) 2 mg Q4H PRN IVP Severe Pain (Pain Scale 7-10) 08/25/16 17:42 09/01/16 04:59 08/26/16 03:17 Multivitamins (Multivitamins) 1 tab DAILY ORAL 08/26/16 09:00 09/25/16 08:59 08/26/16 08:04 Nitroglycerin (Ntg) 0.4 mg Q5MIN X 3 DOSES PRN SL Prn Chest Pain 08/25/16 01:00 09/24/16 00:59 Olanzapine (ZyPREXA) 5 mg DAILY ORAL 08/26/16 09:00 09/25/16 08:59 08/26/16 08:04 Ondansetron HCl (Zofran) 4 mg Q6H PRN IVP Nausea & Vomiting 08/25/16 02:00 09/24/16 01:59 Polyethylene Glycol (Miralax) 17 gm DAILYPRN PRN ORAL Constipation 08/25/16 20:00 09/24/16 19:59 Temazepam 15 mg 15 mg HSPRN PRN ORAL Insomnia 08/25/16 20:00 09/01/16 19:59 Tramadol HCl (Ultram) 50 mg Q6H PRN ORAL Moderate Pain (Pain Scale 4-6) 08/25/16 17:15 09/01/16 17:14 08/25/16 20:44 Valproic Acid (Depakene) 250 mg TID GT 08/25/16 18:00 09/24/16 17:59 08/26/16 18:23 Objective Narrative Procedure: US Renal Findings: Right kidney measures 10.2 cm in length. Left kidney measures 10.1 cm in length. Both kidneys demonstrate normal echogenicity. No hydronephrosis. The right kidney demonstrates a 15 mm diameter calculus in the lower pole renal sinus. The left kidney demonstrates a 15 mm upper pole cyst. Normal inferior vena cava. Bladder is empty, contains a Wright catheter. Impression: Negative for hydronephrosis Nonobstructing right lower pole renal calculus Left renal cyst incidentally noted . Assessment/Plan Problem List: (1) HUDSON (acute kidney injury) ICD Codes: N17.9 - Acute kidney failure, unspecified SNOMED: 82804084 (2) Renal cyst ICD Codes: N28.1 - Cyst of kidney, acquired SNOMED: 32480077 (3) Altered level of consciousness ICD Codes: R40.4 - Transient alteration of awareness SNOMED: 3602895 (4) Diabetes ICD Codes: E11.9 - Type 2 diabetes mellitus without complications SNOMED: 63080559 (5) HTN (hypertension) ICD Codes: I10 - Essential (primary) hypertension SNOMED: 86380944 (6) Feeding by G-tube ICD Codes: Z93.1 - Gastrostomy status SNOMED: 362306039, 357067485 (7) Sepsis ICD Codes: A41.9 - Sepsis, unspecified organism SNOMED: 12198447 Qualifiers: Qualified Codes: A41.9 - Sepsis, unspecified organism (8) UTI (urinary tract infection) ICD Codes: N39.0 - Urinary tract infection, site not specified SNOMED: 53523700 (9) Leukocytosis ICD Codes: D72.829 - Elevated white blood cell count, unspecified SNOMED: 604992716, 432596311 Assessment/Plan Monitor lytes, correct as needed Monitor BUN/cr Monitor intake and output Abx per ID Monitor neuro status BP & BS control AM labs CHRISSIE CLARK Aug 26, 2016 21:20
[2016-08-26] MEDS: Epogen (for non ESRD use) SUBQ SCH (21:37)
[2016-08-27] VITALS: BP 149/78
[2016-08-27 04:00] VITALS: BP 155/85
[2016-08-27] MEDS: Meropenem 1 GM in NS 110 ML IVPB SCH ×3 (05:37→21:17)
[2016-08-27] MEDS: NovoLOG Insulin Flexpen SUBQ SCH ×3 (05:42→17:48)
[2016-08-27 07:23] VITALS: BP 156/93
[2016-08-27 07:36] LABS: BASOPHILS % (AUTO) 0.7 % (0.0-2.0); EOSINOPHILS % (AUTO) 0.6 % (0.0-3.0); LYMPHOCYTES % (AUTO) 11.1 % (20.0-45.0); MEAN CORPUSCULAR HEMOGLOBIN 29.6 PG (27.0-31.0); MEAN CORPUSCULAR HGB CONC 32.1 G/DL (32.0-36.0); MEAN CORPUSCULAR VOLUME 92 FL (80-99); MEAN PLATELET VOLUME 7.5 FL (6.5-10.1); MONOCYTES % (AUTO) 6.9 % (1.0-10.0); NEUTROPHILS % (AUTO) 80.8 % (45.0-75.0); PLATELET COUNT 267 K/UL (150-450); RED BLOOD COUNT 3.28 M/UL (4.20-5.40); WHITE BLOOD COUNT 15.1 K/UL (4.8-10.8)
[2016-08-27 08:10] LABS: CALCIUM 9.6 mg/dL (8.6-10.2); POTASSIUM 4.4 mEQ/L (3.4-4.9)
[2016-08-27] MEDS: Valproic Acid 250mg/5ml Liquid GT SCH ×3 (09:20→17:44)
[2016-08-27] MEDS: Ferrous Sulfate 300 MG/5 ML UDC GT SCH ×3 (09:20→17:44)
[2016-08-27] MEDS: Heparin 5000 units/ml inj SUBQ SCH ×2 (09:23→21:18)
--- NOTE | 2016-08-27 10:16 | Infectious Diseases Prog Note ---
Assessment/Plan Assessment/Plan A: The patient is a 71-year-old female with Leukocytosis persistent ro Intra-abd abscess Sepsis ALOC due to sepsis CT of the head : ? maxillary sinus disease. ( not clinically significance ) UTI Ucx ESBL Kleb Ultrasound of the kidney, negative for hydronephrosis Diabetes Acute renal insufficiency , SP Hypertension CAD Schizoaffective disorder and bipolar disorder Dysphagia status post G-tube placement P: continue the patient on Merrem d# 3 / 7 upon DC will change to Invanz 1 gm daily to complete the course ( 08/25 SP vancomycin and cefepime d# 2 ) Monitor CBC Monitor BMP. Monitor cultures (blood ). Monitor LFT CT of Chest / A/P :P ro abscess Subjective Constitutional: Denies: anorexia, chills, drenching sweats, fatigue, fever, no symptoms, other Allergies: Coded Allergies: ASPIRIN (Unverified Allergy, Unknown, 08/23/16) NIACIN (Unverified Allergy, Unknown, 08/23/16) PENICILLINS (Verified Allergy, Unknown, 12/18/08) Objective Vital Signs Last 24 Hour Vital Signs Date Time Temp Pulse Resp B/P Pulse Ox O2 Delivery O2 Flow Rate FiO2 08/27/16 09:21 153/93 08/27/16 09:20 97 156/93 08/27/16 07:23 98.1 97 15 156/93 96 Room Air 08/27/16 04:00 98.4 94 20 155/85 94 Room Air 08/27/16 00:00 99.1 85 22 149/78 96 Room Air 08/26/16 21:36 136/67 08/26/16 20:22 177/81 08/26/16 20:20 96 177/81 08/26/16 20:00 99.0 100 18 177/81 96 Room Air 08/26/16 19:49 102 18 Room Air 08/26/16 18:00 152/78 08/26/16 16:25 183/76 08/26/16 16:00 98.6 96 16 183/76 96 Room Air 08/26/16 14:30 155/83 08/26/16 13:30 98.1 98 22 161/96 95 Room Air 08/26/16 12:29 181/78 08/26/16 11:58 98.2 102 22 181/78 97 Room Air Height (Feet): 5 Height (Inches): 3.00 Weight (Pounds): 153 HEENT: anicteric Respiratory/Chest: no respiratory distress Cardiovascular: normal rate Abdomen: no organomegaly Laboratory Tests Test 08/27/16 05:35 White Blood Count 15.1 K/UL (4.8-10.8) H Red Blood Count 3.28 M/UL (4.20-5.40) L Hemoglobin 9.7 G/DL (12.0-16.0) L Hematocrit 30.2 % (37.0-47.0) L Mean Corpuscular Volume 92 FL (80-99) Mean Corpuscular Hemoglobin 29.6 PG (27.0-31.0) Mean Corpuscular Hemoglobin Concent 32.1 G/DL (32.0-36.0) Red Cell Distribution Width 15.0 % (11.6-14.8) H Platelet Count 267 K/UL (150-450) Mean Platelet Volume 7.5 FL (6.5-10.1) Neutrophils (%) (Auto) 80.8 % (45.0-75.0) H Lymphocytes (%) (Auto) 11.1 % (20.0-45.0) L Monocytes (%) (Auto) 6.9 % (1.0-10.0) Eosinophils (%) (Auto) 0.6 % (0.0-3.0) Basophils (%) (Auto) 0.7 % (0.0-2.0) Sodium Level 146 mEQ/L (135-145) H Potassium Level 4.4 mEQ/L (3.4-4.9) Chloride Level 104 mEQ/L (98-107) Carbon Dioxide Level 26 mEQ/L (20-30) Anion Gap 16 (5-15) H Blood Urea Nitrogen 40 mg/dL (7-23) H Creatinine 1.0 mg/dL (0.5-0.9) H Estimat Glomerular Filtration Rate 55.0 mL/min (>60) Glucose Level 284 mg/dL (74-106) H Calcium Level 9.6 mg/dL (8.6-10.2) Current Medications Medications (Trade) Dose Ordered Sig/Nicholas Route PRN Reason Start Time Stop Time Status Last Admin Dose Admin Acetaminophen (Tylenol) 500 mg Q6H PRN ORAL Mild Pain/Temp > 100.5 08/25/16 17:15 09/24/16 17:14 Albuterol/ Ipratropium (DuoNeb 0.5-3(2.5)mg/3ml) 3 ml Q4H PRN HHN Shortness of Breath 08/25/16 04:00 08/30/16 03:59 Atorvastatin Calcium (Lipitor) 40 mg BEDTIME GT 08/25/16 21:00 09/24/16 20:59 08/26/16 20:20 Benazepril HCl (Lotensin) 40 mg DAILY GT 08/25/16 15:15 09/24/16 15:14 08/27/16 09:21 Carvedilol (Coreg) 6.25 mg EVERY 12 HOURS GT 08/26/16 21:00 09/25/16 20:59 08/27/16 09:20 Clonazepam (KlonoPIN) 1 mg Q6H PRN GT For Anxiety 08/25/16 17:15 09/01/16 17:14 Clonidine HCl (Catapres) 0.1 mg Q4H PRN ORAL SBP>160 08/25/16 15:15 09/24/16 15:14 08/26/16 20:22 Dextrose (Dextrose 50%) STAT PRN IV Hypoglycemia 08/25/16 20:00 09/24/16 19:59 Epoetin Mau (Procrit (for non ESRD use)) 6,000 units MON-WED-MON SUBQ 08/26/16 21:00 09/25/16 20:59 08/26/16 21:37 Fenofibrate (Tricor) 54 mg DAILY ORAL 08/26/16 09:00 09/25/16 08:59 08/27/16 09:21 Ferrous Sulfate (Feosol) 300 mg THREE TIMES A DAY GT 08/25/16 18:00 09/24/16 17:59 08/27/16 09:20 Heparin Sodium (Porcine) (Heparin 5000 units/ml) 5,000 units EVERY 12 HOURS SUBQ 08/25/16 09:00 09/24/16 08:59 08/27/16 09:23 Insulin Aspart (NovoLOG) Q6HR SUBQ 08/25/16 18:00 09/24/16 17:59 08/27/16 05:42 Magnesium Hydroxide (Mom) 30 ml DAILYPRN PRN ORAL Constipation 08/25/16 17:15 09/24/16 17:14 Meropenem/Sodium Chloride (Merrem/Sodium Chloride) 110 ml @ 220 mls/hr Q8HR IVPB 08/25/16 12:00 08/30/16 11:59 08/27/16 05:37 Morphine Sulfate (Morphine Sulfate) 2 mg Q4H PRN IVP Severe Pain (Pain Scale 7-10) 08/25/16 17:42 09/01/16 04:59 08/26/16 03:17 Multivitamins (Multivitamins) 1 tab DAILY ORAL 08/26/16 09:00 09/25/16 08:59 08/27/16 09:21 Nitroglycerin (Ntg) 0.4 mg Q5MIN X 3 DOSES PRN SL Prn Chest Pain 08/25/16 01:00 09/24/16 00:59 Olanzapine (ZyPREXA) 5 mg DAILY ORAL 08/26/16 09:00 09/25/16 08:59 08/27/16 09:22 Ondansetron HCl (Zofran) 4 mg Q6H PRN IVP Nausea & Vomiting 08/25/16 02:00 09/24/16 01:59 Polyethylene Glycol (Miralax) 17 gm DAILYPRN PRN ORAL Constipation 08/25/16 20:00 09/24/16 19:59 Temazepam 15 mg 15 mg HSPRN PRN ORAL Insomnia 08/25/16 20:00 09/01/16 19:59 Tramadol HCl (Ultram) 50 mg Q6H PRN ORAL Moderate Pain (Pain Scale 4-6) 08/25/16 17:15 09/01/16 17:14 08/25/16 20:44 Valproic Acid (Depakene) 250 mg TID GT 08/25/16 18:00 09/24/16 17:59 08/27/16 09:20 JACKY DAVENPORT M.D. Aug 27, 2016 10:16
[2016-08-27 12:32] VITALS: BP 154/107
--- NOTE | 2016-08-27 14:27 | Internal Med Progress Note ---
Subjective Date of Service: Aug 27, 2016 Physician Name Brad Abreu Attending Physician Pete Hawkins MD Current Medications Medications (Trade) Dose Ordered Sig/Nicholas Route PRN Reason Start Time Stop Time Status Last Admin Dose Admin Acetaminophen (Tylenol) 500 mg Q6H PRN ORAL Mild Pain/Temp > 100.5 08/25/16 17:15 09/24/16 17:14 Albuterol/ Ipratropium (DuoNeb 0.5-3(2.5)mg/3ml) 3 ml Q4H PRN HHN Shortness of Breath 08/25/16 04:00 08/30/16 03:59 Atorvastatin Calcium (Lipitor) 40 mg BEDTIME GT 08/25/16 21:00 09/24/16 20:59 08/26/16 20:20 Benazepril HCl (Lotensin) 40 mg DAILY GT 08/25/16 15:15 09/24/16 15:14 08/27/16 09:21 Carvedilol (Coreg) 6.25 mg EVERY 12 HOURS GT 08/26/16 21:00 09/25/16 20:59 08/27/16 09:20 Clonazepam (KlonoPIN) 1 mg Q6H PRN GT For Anxiety 08/25/16 17:15 09/01/16 17:14 Clonidine HCl (Catapres) 0.1 mg Q4H PRN ORAL SBP>160 08/25/16 15:15 09/24/16 15:14 08/26/16 20:22 Dextrose (Dextrose 50%) STAT PRN IV Hypoglycemia 08/25/16 20:00 09/24/16 19:59 Epoetin Mau (Procrit (for non ESRD use)) 6,000 units MON-MON-MON SUBQ 08/26/16 21:00 09/25/16 20:59 08/26/16 21:37 Fenofibrate (Tricor) 54 mg DAILY ORAL 08/26/16 09:00 09/25/16 08:59 08/27/16 09:21 Ferrous Sulfate (Feosol) 300 mg THREE TIMES A DAY GT 08/25/16 18:00 09/24/16 17:59 08/27/16 13:38 Heparin Sodium (Porcine) (Heparin 5000 units/ml) 5,000 units EVERY 12 HOURS SUBQ 08/25/16 09:00 09/24/16 08:59 08/27/16 09:23 Insulin Aspart (NovoLOG) Q6HR SUBQ 08/25/16 18:00 09/24/16 17:59 08/27/16 12:26 Magnesium Hydroxide (Mom) 30 ml DAILYPRN PRN ORAL Constipation 08/25/16 17:15 09/24/16 17:14 Meropenem/Sodium Chloride (Merrem/Sodium Chloride) 110 ml @ 220 mls/hr Q8HR IVPB 08/25/16 12:00 08/30/16 11:59 08/27/16 13:38 Morphine Sulfate (Morphine Sulfate) 2 mg Q4H PRN IVP Severe Pain (Pain Scale 7-10) 08/25/16 17:42 09/01/16 04:59 08/26/16 03:17 Multivitamins (Multivitamins) 1 tab DAILY ORAL 08/26/16 09:00 09/25/16 08:59 08/27/16 09:21 Nitroglycerin (Ntg) 0.4 mg Q5MIN X 3 DOSES PRN SL Prn Chest Pain 08/25/16 01:00 09/24/16 00:59 Olanzapine (ZyPREXA) 5 mg DAILY ORAL 08/26/16 09:00 09/25/16 08:59 08/27/16 09:22 Ondansetron HCl (Zofran) 4 mg Q6H PRN IVP Nausea & Vomiting 08/25/16 02:00 09/24/16 01:59 Polyethylene Glycol (Miralax) 17 gm DAILYPRN PRN ORAL Constipation 08/25/16 20:00 09/24/16 19:59 Temazepam 15 mg 15 mg HSPRN PRN ORAL Insomnia 08/25/16 20:00 09/01/16 19:59 Tramadol HCl (Ultram) 50 mg Q6H PRN ORAL Moderate Pain (Pain Scale 4-6) 08/25/16 17:15 09/01/16 17:14 08/25/16 20:44 Valproic Acid (Depakene) 250 mg TID GT 08/25/16 18:00 09/24/16 17:59 08/27/16 12:27 Allergies: Coded Allergies: ASPIRIN (Unverified Allergy, Unknown, 08/23/16) NIACIN (Unverified Allergy, Unknown, 08/23/16) PENICILLINS (Verified Allergy, Unknown, 12/18/08) ROS Limited/Unobtainable: Yes Subjective 71 YO F admitted with altered mental status; now UTI. Cover for Int Med-Dr Hawkins. Objective Last Vital Signs Date Time Temp Pulse Resp B/P Pulse Ox O2 Delivery O2 Flow Rate FiO2 08/27/16 12:32 99.1 98 16 154/107 98 Room Air 08/23/16 19:47 2.0 Laboratory Tests Test 08/27/16 05:35 White Blood Count 15.1 K/UL (4.8-10.8) H Red Blood Count 3.28 M/UL (4.20-5.40) L Hemoglobin 9.7 G/DL (12.0-16.0) L Hematocrit 30.2 % (37.0-47.0) L Mean Corpuscular Volume 92 FL (80-99) Mean Corpuscular Hemoglobin 29.6 PG (27.0-31.0) Mean Corpuscular Hemoglobin Concent 32.1 G/DL (32.0-36.0) Red Cell Distribution Width 15.0 % (11.6-14.8) H Platelet Count 267 K/UL (150-450) Mean Platelet Volume 7.5 FL (6.5-10.1) Neutrophils (%) (Auto) 80.8 % (45.0-75.0) H Lymphocytes (%) (Auto) 11.1 % (20.0-45.0) L Monocytes (%) (Auto) 6.9 % (1.0-10.0) Eosinophils (%) (Auto) 0.6 % (0.0-3.0) Basophils (%) (Auto) 0.7 % (0.0-2.0) Sodium Level 146 mEQ/L (135-145) H Potassium Level 4.4 mEQ/L (3.4-4.9) Chloride Level 104 mEQ/L (98-107) Carbon Dioxide Level 26 mEQ/L (20-30) Anion Gap 16 (5-15) H Blood Urea Nitrogen 40 mg/dL (7-23) H Creatinine 1.0 mg/dL (0.5-0.9) H Estimat Glomerular Filtration Rate 55.0 mL/min (>60) Glucose Level 284 mg/dL (74-106) H Calcium Level 9.6 mg/dL (8.6-10.2) Intake and Output 08/26/16 08/27/16 19:00 07:00 Intake Total 934 ml 1197 ml Output Total 1500 ml 1250 ml Balance -566 ml -53 ml Free Water 250 ml 350 ml IV Total 220 ml Tube Feeding 684 ml 627 ml Output Urine Total 1500 ml 1250 ml # Bowel Movements 5 1 Objective General Appearance: WD/WN, no apparent distress, alert EENT: PERRL/EOMI, normal ENT inspection Neck: non-tender, normal alignment, supple Cardiovascular: normal peripheral pulses, normal rate, regular rhythm, no gallop/murmur, no JVD Respiratory/Chest: chest wall non-tender, lungs clear, normal breath sounds, no respiratory distress, no accessory muscle use Abdomen: normal bowel sounds, non tender, soft, no organomegaly, no mass Extremities: normal range of motion, non-tender 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 Cont meropenem per ID (7) Altered mental status (8) Leukocytosis (9) Diabetes mellitus type II, uncontrolled Assessment & Plan: Continue novolog sliding scale. (10) Renal failure (11) HTN (hypertension) Assessment & Plan: Uncontrolled. Increase coreg. Cont lotesnin Status: progressing ABREUBRAD Aug 27, 2016 14:27
--- NOTE | 2016-08-27 15:32 | Nephrology Progress Note ---
Assessment/Plan Problem List: (1) Sepsis (2) Altered level of consciousness (3) Dysphagia (4) UTI (urinary tract infection) (5) Leukocytosis (6) HUDSON (acute kidney injury) Plan Monitor lytes, correct as needed Monitor BUN/cr Monitor intake and output Abx per ID Monitor neuro status BP & BS control AM labs Subjective ROS Limited/Unobtainable: Yes Subjective In bed, in no apparent distress, disoriented Objective Objective Last 24 Hour Vital Signs Date Time Temp Pulse Resp B/P Pulse Ox O2 Delivery O2 Flow Rate FiO2 08/27/16 12:32 99.1 98 16 154/107 98 Room Air 08/27/16 09:21 153/93 08/27/16 09:20 97 156/93 08/27/16 07:23 98.1 97 15 156/93 96 Room Air 08/27/16 04:00 98.4 94 20 155/85 94 Room Air 08/27/16 00:00 99.1 85 22 149/78 96 Room Air 08/26/16 21:36 136/67 08/26/16 20:22 177/81 08/26/16 20:20 96 177/81 08/26/16 20:00 99.0 100 18 177/81 96 Room Air 08/26/16 19:49 102 18 Room Air 08/26/16 18:00 152/78 08/26/16 16:25 183/76 08/26/16 16:00 98.6 96 16 183/76 96 Room Air Intake and Output 08/26/16 08/27/16 19:00 07:00 Intake Total 934 ml 1197 ml Output Total 1500 ml 1250 ml Balance -566 ml -53 ml Free Water 250 ml 350 ml IV Total 220 ml Tube Feeding 684 ml 627 ml Output Urine Total 1500 ml 1250 ml # Bowel Movements 5 1 Laboratory Tests 08/27/16 05:35: White Blood Count 15.1H, Red Blood Count 3.28L, Hemoglobin 9.7L, Hematocrit 30.2L, Mean Corpuscular Volume 92, Mean Corpuscular Hemoglobin 29.6, Mean Corpuscular Hemoglobin Concent 32.1, Red Cell Distribution Width 15.0H, Platelet Count 267, Mean Platelet Volume 7.5, Neutrophils (%) (Auto) 80.8H, Lymphocytes (%) (Auto) 11.1L, Monocytes (%) (Auto) 6.9, Eosinophils (%) (Auto) 0.6, Basophils (%) (Auto) 0.7, Sodium Level 146H, Potassium Level 4.4, Chloride Level 104, Carbon Dioxide Level 26, Anion Gap 16H, Blood Urea Nitrogen 40H, Creatinine 1.0H, Estimat Glomerular Filtration Rate 55.0, Glucose Level 284H, Calcium Level 9.6 Height (Feet): 5 Height (Inches): 3.00 Weight (Pounds): 153 General Appearance: no apparent distress EENT: PERRL/EOMI, normal ENT inspection Neck: non-tender, normal alignment Cardiovascular: normal rate, regular rhythm, no JVD Respiratory/Chest: normal breath sounds, no respiratory distress Abdomen: soft, no organomegaly, other - PEG tube Genitourinary/Rectal: other - borja Extremities: non-tender, normal inspection Neurologic: disoriented Sofy Renteria N.P. Aug 27, 2016 15:32
[2016-08-27 15:58] VITALS: BP 194/96
[2016-08-27 19:00] VITALS: BP 171/90
--- NOTE | 2016-08-27 23:25 | Pulmonology Progress Note ---
Assessment/Plan Problems: (1) Sepsis (2) ATN (acute tubular necrosis) (3) HTN (hypertension) (4) CVA (cerebral vascular accident) (5) Feeding by G-tube (6) Diabetes Assessment/Plan improving gradually invanz day 3 continue feeding, tolerating well check electroltyes and cbc all notes and meds reviewed. Subjective Interval Events: comfortable Allergies: Coded Allergies: ASPIRIN (Unverified Allergy, Unknown, 08/23/16) NIACIN (Unverified Allergy, Unknown, 08/23/16) PENICILLINS (Verified Allergy, Unknown, 12/18/08) Objective Last 24 Hour Vital Signs Date Time Temp Pulse Resp B/P Pulse Ox O2 Delivery O2 Flow Rate FiO2 08/27/16 21:17 89 171/90 08/27/16 21:17 171/90 08/27/16 19:00 97.0 89 20 171/90 99 Room Air 08/27/16 17:01 188/89 08/27/16 15:58 98.2 88 20 194/96 97 Room Air 08/27/16 12:32 99.1 98 16 154/107 98 Room Air 08/27/16 09:21 153/93 08/27/16 09:20 97 156/93 08/27/16 07:23 98.1 97 15 156/93 96 Room Air 08/27/16 04:00 98.4 94 20 155/85 94 Room Air 08/27/16 00:00 99.1 85 22 149/78 96 Room Air Intake and Output 08/26/16 08/27/16 19:00 07:00 Intake Total 934 ml 1197 ml Output Total 1500 ml 1250 ml Balance -566 ml -53 ml Free Water 250 ml 350 ml IV Total 220 ml Tube Feeding 684 ml 627 ml Output Urine Total 1500 ml 1250 ml # Bowel Movements 5 1 Objective Lines, tubes and drains: peripheral, HEENT: normocephalic, atraumatic Neck: non-tender Respiratory/Chest: chest wall non-tender Cardiovascular/Chest: normal peripheral pulses Abdomen: normal bowel sounds, feeding tube, other Genitourinary/Rectal: normal genital exam Extremities: normal range of motion, non-tender Laboratory Tests 08/27/16 05:35: White Blood Count 15.1H, Red Blood Count 3.28L, Hemoglobin 9.7L, Hematocrit 30.2L, Mean Corpuscular Volume 92, Mean Corpuscular Hemoglobin 29.6, Mean Corpuscular Hemoglobin Concent 32.1, Red Cell Distribution Width 15.0H, Platelet Count 267, Mean Platelet Volume 7.5, Neutrophils (%) (Auto) 80.8H, Lymphocytes (%) (Auto) 11.1L, Monocytes (%) (Auto) 6.9, Eosinophils (%) (Auto) 0.6, Basophils (%) (Auto) 0.7, Sodium Level 146H, Potassium Level 4.4, Chloride Level 104, Carbon Dioxide Level 26, Anion Gap 16H, Blood Urea Nitrogen 40H, Creatinine 1.0H, Estimat Glomerular Filtration Rate 55.0, Glucose Level 284H, Calcium Level 9.6 Current Medications Medications (Trade) Dose Ordered Sig/Nicholas Route PRN Reason Start Time Stop Time Status Last Admin Dose Admin Acetaminophen (Tylenol) 500 mg Q6H PRN ORAL Mild Pain/Temp > 100.5 08/25/16 17:15 09/24/16 17:14 Albuterol/ Ipratropium (DuoNeb 0.5-3(2.5)mg/3ml) 3 ml Q4H PRN HHN Shortness of Breath 08/25/16 04:00 08/30/16 03:59 Atorvastatin Calcium (Lipitor) 40 mg BEDTIME GT 08/25/16 21:00 09/24/16 20:59 08/27/16 21:17 Benazepril HCl (Lotensin) 40 mg DAILY GT 08/25/16 15:15 09/24/16 15:14 08/27/16 09:21 Carvedilol (Coreg) 6.25 mg EVERY 12 HOURS GT 08/26/16 21:00 09/25/16 20:59 08/27/16 21:17 Clonazepam (KlonoPIN) 1 mg Q6H PRN GT For Anxiety 08/25/16 17:15 09/01/16 17:14 Clonidine HCl (Catapres) 0.1 mg Q4H PRN ORAL SBP>160 08/25/16 15:15 09/24/16 15:14 08/27/16 21:17 Dextrose (Dextrose 50%) STAT PRN IV Hypoglycemia 08/25/16 20:00 09/24/16 19:59 Epoetin Mau (Procrit (for non ESRD use)) 6,000 units MON-MON-MON SUBQ 08/26/16 21:00 09/25/16 20:59 08/26/16 21:37 Fenofibrate (Tricor) 54 mg DAILY ORAL 08/26/16 09:00 09/25/16 08:59 08/27/16 09:21 Ferrous Sulfate (Feosol) 300 mg THREE TIMES A DAY GT 08/25/16 18:00 09/24/16 17:59 08/27/16 17:44 Heparin Sodium (Porcine) (Heparin 5000 units/ml) 5,000 units EVERY 12 HOURS SUBQ 08/25/16 09:00 09/24/16 08:59 08/27/16 21:18 Insulin Aspart (NovoLOG) Q6HR SUBQ 08/25/16 18:00 09/24/16 17:59 08/27/16 17:48 Magnesium Hydroxide (Mom) 30 ml DAILYPRN PRN ORAL Constipation 08/25/16 17:15 09/24/16 17:14 Meropenem/Sodium Chloride (Merrem/Sodium Chloride) 110 ml @ 220 mls/hr Q8HR IVPB 08/25/16 12:00 08/30/16 11:59 08/27/16 21:17 Morphine Sulfate (Morphine Sulfate) 2 mg Q4H PRN IVP Severe Pain (Pain Scale 7-10) 08/25/16 17:42 09/01/16 04:59 08/26/16 03:17 Multivitamins (Multivitamins) 1 tab DAILY ORAL 08/26/16 09:00 09/25/16 08:59 08/27/16 09:21 Nitroglycerin (Ntg) 0.4 mg Q5MIN X 3 DOSES PRN SL Prn Chest Pain 08/25/16 01:00 09/24/16 00:59 Olanzapine (ZyPREXA) 5 mg DAILY ORAL 08/26/16 09:00 09/25/16 08:59 08/27/16 09:22 Ondansetron HCl (Zofran) 4 mg Q6H PRN IVP Nausea & Vomiting 08/25/16 02:00 09/24/16 01:59 Polyethylene Glycol (Miralax) 17 gm DAILYPRN PRN ORAL Constipation 08/25/16 20:00 09/24/16 19:59 Temazepam 15 mg 15 mg HSPRN PRN ORAL Insomnia 08/25/16 20:00 09/01/16 19:59 Tramadol HCl (Ultram) 50 mg Q6H PRN ORAL Moderate Pain (Pain Scale 4-6) 08/25/16 17:15 09/01/16 17:14 08/25/16 20:44 Valproic Acid (Depakene) 250 mg TID GT 08/25/16 18:00 09/24/16 17:59 08/27/16 17:44 MAGDA SAUL Aug 27, 2016 23:24
[2016-08-28] MEDS: NovoLOG Insulin Flexpen SUBQ SCH ×4 (00:07→18:13)
[2016-08-28 00:18] VITALS: BP 148/76
[2016-08-28 04:00] VITALS: BP 154/85
[2016-08-28] MEDS: Meropenem 1 GM in NS 110 ML IVPB SCH ×3 (06:17→21:14)
[2016-08-28 07:38] LABS: CALCIUM 9.6 mg/dL (8.6-10.2)
[2016-08-28 07:39] LABS: BASOPHILS % (AUTO) 0.7 % (0.0-2.0); EOSINOPHILS % (AUTO) 1.2 % (0.0-3.0); LYMPHOCYTES % (AUTO) 11.4 % (20.0-45.0); MEAN CORPUSCULAR HEMOGLOBIN 30.6 PG (27.0-31.0); MEAN CORPUSCULAR HGB CONC 33.2 G/DL (32.0-36.0); MEAN CORPUSCULAR VOLUME 92 FL (80-99); MEAN PLATELET VOLUME 8.1 FL (6.5-10.1); MONOCYTES % (AUTO) 6.7 % (1.0-10.0); PLATELET COUNT 248 K/UL (150-450); RED BLOOD COUNT 3.29 M/UL (4.20-5.40); RED CELL DISTRIBUTION WIDTH 15.3 % (11.6-14.8); WHITE BLOOD COUNT 17.6 K/UL (4.8-10.8)
[2016-08-28 08:09] VITALS: BP 156/107
[2016-08-28] MEDS: Valproic Acid 250mg/5ml Liquid GT SCH ×3 (08:35→18:09)
[2016-08-28] MEDS: Ferrous Sulfate 300 MG/5 ML UDC GT SCH ×3 (08:36→18:09)
[2016-08-28] MEDS: Heparin 5000 units/ml inj SUBQ SCH ×2 (08:39→21:12)
--- NOTE | 2016-08-28 09:48 | Infectious Diseases Prog Note ---
Assessment/Plan Assessment/Plan A: Sepsis UTI DM Maxillary sinusitis Schizoaffective P; continue Meropenem Subjective ROS Limited/Unobtainable: Yes Allergies: Coded Allergies: ASPIRIN (Unverified Allergy, Unknown, 08/23/16) NIACIN (Unverified Allergy, Unknown, 08/23/16) PENICILLINS (Verified Allergy, Unknown, 12/18/08) Objective Vital Signs Last 24 Hour Vital Signs Date Time Temp Pulse Resp B/P Pulse Ox O2 Delivery O2 Flow Rate FiO2 08/28/16 08:35 109 156/107 08/28/16 08:35 156/107 08/28/16 08:09 97.7 109 21 156/107 96 Room Air 08/28/16 04:00 98.1 85 20 154/85 96 Room Air 08/28/16 03:10 172/80 08/28/16 00:18 97.9 75 18 148/76 96 Room Air 08/27/16 21:17 89 171/90 08/27/16 21:17 171/90 08/27/16 19:06 99 18 Room Air 08/27/16 19:00 97.0 89 20 171/90 99 Room Air 08/27/16 17:01 188/89 08/27/16 15:58 98.2 88 20 194/96 97 Room Air 08/27/16 12:32 99.1 98 16 154/107 98 Room Air Height (Feet): 5 Height (Inches): 3.00 Weight (Pounds): 153 General Appearance: no acute distress HEENT: mucous membranes moist Respiratory/Chest: lungs clear Cardiovascular: normal rate Abdomen: soft, non tender, other - GT in place Extremities: no edema Neurologic/Psychiatric: alert Laboratory Tests Test 08/28/16 04:35 White Blood Count 17.6 K/UL (4.8-10.8) H Red Blood Count 3.29 M/UL (4.20-5.40) L Hemoglobin 10.1 G/DL (12.0-16.0) L Hematocrit 30.3 % (37.0-47.0) L Mean Corpuscular Volume 92 FL (80-99) Mean Corpuscular Hemoglobin 30.6 PG (27.0-31.0) Mean Corpuscular Hemoglobin Concent 33.2 G/DL (32.0-36.0) Red Cell Distribution Width 15.3 % (11.6-14.8) H Platelet Count 248 K/UL (150-450) Mean Platelet Volume 8.1 FL (6.5-10.1) Neutrophils (%) (Auto) 80.0 % (45.0-75.0) H Lymphocytes (%) (Auto) 11.4 % (20.0-45.0) L Monocytes (%) (Auto) 6.7 % (1.0-10.0) Eosinophils (%) (Auto) 1.2 % (0.0-3.0) Basophils (%) (Auto) 0.7 % (0.0-2.0) Sodium Level 146 mEQ/L (135-145) H Potassium Level 4.0 mEQ/L (3.4-4.9) Chloride Level 103 mEQ/L (98-107) Carbon Dioxide Level 26 mEQ/L (20-30) Anion Gap 17 (5-15) H Blood Urea Nitrogen 43 mg/dL (7-23) H Creatinine 1.0 mg/dL (0.5-0.9) H Estimat Glomerular Filtration Rate 55.0 mL/min (>60) Glucose Level 248 mg/dL (74-106) H Calcium Level 9.6 mg/dL (8.6-10.2) Current Medications Medications (Trade) Dose Ordered Sig/Nicholas Route PRN Reason Start Time Stop Time Status Last Admin Dose Admin Acetaminophen (Tylenol) 500 mg Q6H PRN ORAL Mild Pain/Temp > 100.5 08/25/16 17:15 09/24/16 17:14 Albuterol/ Ipratropium (DuoNeb 0.5-3(2.5)mg/3ml) 3 ml Q4H PRN HHN Shortness of Breath 08/25/16 04:00 08/30/16 03:59 Atorvastatin Calcium (Lipitor) 40 mg BEDTIME GT 08/25/16 21:00 09/24/16 20:59 08/27/16 21:17 Benazepril HCl (Lotensin) 40 mg DAILY GT 08/25/16 15:15 09/24/16 15:14 08/28/16 08:35 Carvedilol (Coreg) 6.25 mg EVERY 12 HOURS GT 08/26/16 21:00 09/25/16 20:59 08/28/16 08:35 Clonazepam (KlonoPIN) 1 mg Q6H PRN GT For Anxiety 08/25/16 17:15 09/01/16 17:14 Clonidine HCl (Catapres) 0.1 mg Q4H PRN ORAL SBP>160 08/25/16 15:15 09/24/16 15:14 08/28/16 03:10 Dextrose (Dextrose 50%) STAT PRN IV Hypoglycemia 08/25/16 20:00 09/24/16 19:59 Epoetin Mau (Procrit (for non ESRD use)) 6,000 units MON-MON-MON SUBQ 08/26/16 21:00 09/25/16 20:59 08/26/16 21:37 Fenofibrate (Tricor) 54 mg DAILY ORAL 08/26/16 09:00 09/25/16 08:59 08/28/16 08:35 Ferrous Sulfate (Feosol) 300 mg THREE TIMES A DAY GT 08/25/16 18:00 09/24/16 17:59 08/28/16 08:36 Heparin Sodium (Porcine) (Heparin 5000 units/ml) 5,000 units EVERY 12 HOURS SUBQ 08/25/16 09:00 09/24/16 08:59 08/28/16 08:39 Insulin Aspart (NovoLOG) Q6HR SUBQ 08/25/16 18:00 09/24/16 17:59 08/28/16 06:18 Magnesium Hydroxide (Mom) 30 ml DAILYPRN PRN ORAL Constipation 08/25/16 17:15 09/24/16 17:14 Meropenem/Sodium Chloride (Merrem/Sodium Chloride) 110 ml @ 220 mls/hr Q8HR IVPB 08/25/16 12:00 08/30/16 11:59 08/28/16 06:17 Morphine Sulfate (Morphine Sulfate) 2 mg Q4H PRN IVP Severe Pain (Pain Scale 7-10) 08/25/16 17:42 09/01/16 04:59 08/26/16 03:17 Multivitamins (Multivitamins) 1 tab DAILY ORAL 08/26/16 09:00 09/25/16 08:59 08/28/16 08:35 Nitroglycerin (Ntg) 0.4 mg Q5MIN X 3 DOSES PRN SL Prn Chest Pain 08/25/16 01:00 09/24/16 00:59 Olanzapine (ZyPREXA) 5 mg DAILY ORAL 08/26/16 09:00 09/25/16 08:59 08/28/16 08:35 Ondansetron HCl (Zofran) 4 mg Q6H PRN IVP Nausea & Vomiting 08/25/16 02:00 09/24/16 01:59 Polyethylene Glycol (Miralax) 17 gm DAILYPRN PRN ORAL Constipation 08/25/16 20:00 09/24/16 19:59 Temazepam 15 mg 15 mg HSPRN PRN ORAL Insomnia 08/25/16 20:00 09/01/16 19:59 Tramadol HCl (Ultram) 50 mg Q6H PRN ORAL Moderate Pain (Pain Scale 4-6) 08/25/16 17:15 09/01/16 17:14 08/25/16 20:44 Valproic Acid (Depakene) 250 mg TID GT 08/25/16 18:00 09/24/16 17:59 08/28/16 08:35 ISHAN HURD Aug 28, 2016 09:48
[2016-08-28 12:19] VITALS: BP 126/105
[2016-08-28 16:16] VITALS: BP 152/101
[2016-08-28] MEDS: Morphine Sulfate 2mg/ml Inj IVP PRN (18:10)
[2016-08-28 19:00] VITALS: BP 135/79
--- NOTE | 2016-08-28 19:12 | Pulmonology Progress Note ---
Assessment/Plan Problems: (1) Sepsis (2) ATN (acute tubular necrosis) (3) HTN (hypertension) (4) CVA (cerebral vascular accident) (5) Feeding by G-tube (6) Diabetes Assessment/Plan conitnue invanz wbc coming down toleraing feeding check labs aspiration precaution dvt prophylaxis Subjective Interval Events: no change Allergies: Coded Allergies: ASPIRIN (Unverified Allergy, Unknown, 08/23/16) NIACIN (Unverified Allergy, Unknown, 08/23/16) PENICILLINS (Verified Allergy, Unknown, 12/18/08) Objective Last 24 Hour Vital Signs Date Time Temp Pulse Resp B/P Pulse Ox O2 Delivery O2 Flow Rate FiO2 08/28/16 18:40 98.0 08/28/16 16:16 98.0 92 20 152/101 97 Room Air 08/28/16 12:19 98.2 99 21 126/105 99 Room Air 08/28/16 08:35 109 156/107 08/28/16 08:35 156/107 08/28/16 08:09 97.7 109 21 156/107 96 Room Air 08/28/16 06:50 88 20 Room Air 21 08/28/16 04:00 98.1 85 20 154/85 96 Room Air 08/28/16 03:10 172/80 08/28/16 00:18 97.9 75 18 148/76 96 Room Air 08/27/16 21:17 89 171/90 08/27/16 21:17 171/90 Intake and Output 08/27/16 08/28/16 19:00 07:00 Intake Total 535 ml 970 ml Output Total 1000 ml 800 ml Balance -465 ml 170 ml Free Water 250 ml 180 ml IV Total 220 ml Tube Feeding 285 ml 570 ml Output Urine Total 1000 ml 800 ml # Bowel Movements 1 1 Objective Lines, tubes and drains: peripheral, HEENT: normocephalic, atraumatic Neck: non-tender Respiratory/Chest: chest wall non-tender Cardiovascular/Chest: normal peripheral pulses Abdomen: normal bowel sounds, feeding tube, other Genitourinary/Rectal: normal genital exam Extremities: normal range of motion, non-tender Laboratory Tests 08/28/16 04:35: White Blood Count 17.6H, Red Blood Count 3.29L, Hemoglobin 10.1L, Hematocrit 30.3L, Mean Corpuscular Volume 92, Mean Corpuscular Hemoglobin 30.6, Mean Corpuscular Hemoglobin Concent 33.2, Red Cell Distribution Width 15.3H, Platelet Count 248, Mean Platelet Volume 8.1, Neutrophils (%) (Auto) 80.0H, Lymphocytes (%) (Auto) 11.4L, Monocytes (%) (Auto) 6.7, Eosinophils (%) (Auto) 1.2, Basophils (%) (Auto) 0.7, Sodium Level 146H, Potassium Level 4.0, Chloride Level 103, Carbon Dioxide Level 26, Anion Gap 17H, Blood Urea Nitrogen 43H, Creatinine 1.0H, Estimat Glomerular Filtration Rate 55.0, Glucose Level 248H, Calcium Level 9.6 Current Medications Medications (Trade) Dose Ordered Sig/Nicholas Route PRN Reason Start Time Stop Time Status Last Admin Dose Admin Acetaminophen (Tylenol) 500 mg Q6H PRN ORAL Mild Pain/Temp > 100.5 08/25/16 17:15 09/24/16 17:14 Albuterol/ Ipratropium (DuoNeb 0.5-3(2.5)mg/3ml) 3 ml Q4H PRN HHN Shortness of Breath 08/25/16 04:00 08/30/16 03:59 Atorvastatin Calcium (Lipitor) 40 mg BEDTIME GT 08/25/16 21:00 09/24/16 20:59 08/27/16 21:17 Benazepril HCl (Lotensin) 40 mg DAILY GT 08/25/16 15:15 09/24/16 15:14 08/28/16 08:35 Carvedilol (Coreg) 6.25 mg EVERY 12 HOURS GT 08/26/16 21:00 09/25/16 20:59 08/28/16 08:35 Clonazepam (KlonoPIN) 1 mg Q6H PRN GT For Anxiety 08/25/16 17:15 09/01/16 17:14 Clonidine HCl (Catapres) 0.1 mg Q4H PRN ORAL SBP>160 08/25/16 15:15 09/24/16 15:14 08/28/16 03:10 Dextrose (Dextrose 50%) STAT PRN IV Hypoglycemia 08/25/16 20:00 09/24/16 19:59 Epoetin Mau (Procrit (for non ESRD use)) 6,000 units MON-WED-FRI SUBQ 08/26/16 21:00 09/25/16 20:59 08/26/16 21:37 Fenofibrate (Tricor) 54 mg DAILY ORAL 08/26/16 09:00 09/25/16 08:59 08/28/16 08:35 Ferrous Sulfate (Feosol) 300 mg THREE TIMES A DAY GT 08/25/16 18:00 09/24/16 17:59 08/28/16 18:09 Heparin Sodium (Porcine) (Heparin 5000 units/ml) 5,000 units EVERY 12 HOURS SUBQ 08/25/16 09:00 09/24/16 08:59 08/28/16 08:39 Insulin Aspart (NovoLOG) Q6HR SUBQ 08/25/16 18:00 09/24/16 17:59 08/28/16 18:13 Magnesium Hydroxide (Mom) 30 ml DAILYPRN PRN ORAL Constipation 08/25/16 17:15 09/24/16 17:14 Meropenem/Sodium Chloride (Merrem/Sodium Chloride) 110 ml @ 220 mls/hr Q8HR IVPB 08/25/16 12:00 08/30/16 11:59 08/28/16 15:29 Morphine Sulfate (Morphine Sulfate) 2 mg Q4H PRN IVP Severe Pain (Pain Scale 7-10) 08/25/16 17:42 09/01/16 04:59 08/28/16 18:10 Multivitamins (Multivitamins) 1 tab DAILY ORAL 08/26/16 09:00 09/25/16 08:59 08/28/16 08:35 Nitroglycerin (Ntg) 0.4 mg Q5MIN X 3 DOSES PRN SL Prn Chest Pain 08/25/16 01:00 09/24/16 00:59 Olanzapine (ZyPREXA) 5 mg DAILY ORAL 08/26/16 09:00 09/25/16 08:59 08/28/16 08:35 Ondansetron HCl (Zofran) 4 mg Q6H PRN IVP Nausea & Vomiting 08/25/16 02:00 09/24/16 01:59 Polyethylene Glycol (Miralax) 17 gm DAILYPRN PRN ORAL Constipation 08/25/16 20:00 09/24/16 19:59 Temazepam 15 mg 15 mg HSPRN PRN ORAL Insomnia 08/25/16 20:00 09/01/16 19:59 Tramadol HCl (Ultram) 50 mg Q6H PRN ORAL Moderate Pain (Pain Scale 4-6) 08/25/16 17:15 09/01/16 17:14 08/25/16 20:44 Valproic Acid (Depakene) 250 mg TID GT 08/25/16 18:00 09/24/16 17:59 08/28/16 18:09 MAGDA SAUL Aug 28, 2016 19:12
--- NOTE | 2016-08-28 20:04 | Nephrology Progress Note ---
Assessment/Plan Problem List: (1) Sepsis (2) Altered level of consciousness (3) Dysphagia (4) UTI (urinary tract infection) (5) Leukocytosis (6) HUDSON (acute kidney injury) Plan Monitor lytes, correct as needed Monitor BUN/cr Monitor intake and output Abx per ID Monitor neuro status BP & BS control AM labs Subjective ROS Limited/Unobtainable: Yes Subjective In no distress, disoriented Objective Objective Last 24 Hour Vital Signs Date Time Temp Pulse Resp B/P Pulse Ox O2 Delivery O2 Flow Rate FiO2 08/28/16 18:40 98.0 08/28/16 16:16 98.0 92 20 152/101 97 Room Air 08/28/16 12:19 98.2 99 21 126/105 99 Room Air 08/28/16 08:35 109 156/107 08/28/16 08:35 156/107 08/28/16 08:09 97.7 109 21 156/107 96 Room Air 08/28/16 06:50 88 20 Room Air 21 08/28/16 04:00 98.1 85 20 154/85 96 Room Air 08/28/16 03:10 172/80 08/28/16 00:18 97.9 75 18 148/76 96 Room Air 08/27/16 21:17 89 171/90 08/27/16 21:17 171/90 Intake and Output 08/27/16 08/28/16 19:00 07:00 Intake Total 535 ml 970 ml Output Total 1000 ml 800 ml Balance -465 ml 170 ml Free Water 250 ml 180 ml IV Total 220 ml Tube Feeding 285 ml 570 ml Output Urine Total 1000 ml 800 ml # Bowel Movements 1 1 Laboratory Tests 08/28/16 04:35: White Blood Count 17.6H, Red Blood Count 3.29L, Hemoglobin 10.1L, Hematocrit 30.3L, Mean Corpuscular Volume 92, Mean Corpuscular Hemoglobin 30.6, Mean Corpuscular Hemoglobin Concent 33.2, Red Cell Distribution Width 15.3H, Platelet Count 248, Mean Platelet Volume 8.1, Neutrophils (%) (Auto) 80.0H, Lymphocytes (%) (Auto) 11.4L, Monocytes (%) (Auto) 6.7, Eosinophils (%) (Auto) 1.2, Basophils (%) (Auto) 0.7, Sodium Level 146H, Potassium Level 4.0, Chloride Level 103, Carbon Dioxide Level 26, Anion Gap 17H, Blood Urea Nitrogen 43H, Creatinine 1.0H, Estimat Glomerular Filtration Rate 55.0, Glucose Level 248H, Calcium Level 9.6 Height (Feet): 5 Height (Inches): 3.00 Weight (Pounds): 153 General Appearance: no apparent distress EENT: normal ENT inspection Neck: non-tender, normal alignment, supple, normal inspection Cardiovascular: normal rate, regular rhythm, no JVD Respiratory/Chest: normal breath sounds, no respiratory distress Abdomen: soft, no organomegaly, other - PEG Genitourinary/Rectal: other - FISHER Extremities: normal inspection, no calf tenderness Neurologic: disoriented Sofy Renteria N.P. Aug 28, 2016 20:04
[2016-08-29] VITALS (7 sets, daily range): BP systolic 103–164; BP diastolic 56–105
[2016-08-29] MEDS: NovoLOG Insulin Flexpen SUBQ SCH ×5 (00:10→23:42)
--- NOTE | 2016-08-29 02:08 | Consultation ---
DATE OF CONSULTATION: 08/28/2016 CONSULTING PHYSICIAN: Jeimy Valentin M.D. ATTENDING PHYSICIAN: Bruce Hurst M.D. REASON FOR CONSULTATION: Sacral pressure ulcer. HISTORY OF PRESENT ILLNESS: This is a 71-year-old woman who presented to the emergency room with altered mental status. She has been residing at a longterm facility and was admitted for a urinary tract infection. The patient was found to have a sacral pressure ulcer, which she presented to the hospital with. PAST MEDICAL HISTORY: Type 2 diabetes, chronic renal failure, hypertension, coronary artery disease, bipolar disorder and dysphagia. MEDICATIONS: Outpatient medications are Coreg, benazepril, insulin, Lipitor, TriCor, Vascepa, clonazepam p.r.n., Depakote, Procrit, tramadol, Lantus, Humalog sliding scale, captopril, Zyprexa, and she is currently on meropenem antibiotics. ALLERGIES: Aspirin, niacin, and penicillin. REVIEW OF SYSTEMS: No other active medical problems other than medical history as listed above. PHYSICAL EXAMINATION: GENERAL: The patient is afebrile with stable vitals. She is well-developed and well-nourished, in no acute distress. CARDIOVASCULAR: Regular rate and rhythm. LUNGS: Clear to auscultation bilaterally. ABDOMEN: Soft, nontender and nondistended. In her sacral area, she has an area of redness in the sacral area that measured approximately 6 x 6 cm. There is no open skin wound and appears to be epithelialized and the surrounding area is intact. The patient has a Wright present and she is incontinent. There are no other wounds visualized. I inspected her G-tube, there was no granulation tissue. ASSESSMENT: The patient with chronic medical issues in the longterm facility recently admitted found to have a sacral pressure ulcer. RECOMMENDATIONS: 1. Turn and reposition every two hours. 2. Keep clean and dry. Minimize tear and friction and take extreme caution when turning the patient that the sheets are not bunched under her. 3. Recommend zinc oxide barrier cream TID and PRN in the sacral area and optimize nutrition. Thank you for the consultation. Jeimy Valentin M.D. DR: HANG JOB#: [id number] CC: CANDICE
[2016-08-29] MEDS: Meropenem 1 GM in NS 110 ML IVPB SCH ×3 (05:30→21:31)
[2016-08-29 07:55] LABS: MEAN CORPUSCULAR HEMOGLOBIN 29.3 PG (27.0-31.0); MEAN CORPUSCULAR VOLUME 92 FL (80-99); MEAN PLATELET VOLUME 8.1 FL (6.5-10.1); PLATELET COUNT 219 K/UL (150-450); RED BLOOD COUNT 3.88 M/UL (4.20-5.40); RED CELL DISTRIBUTION WIDTH 15.6 % (11.6-14.8)
[2016-08-29 08:07] LABS: WHITE BLOOD COUNT 23.6 K/UL (4.8-10.8)
[2016-08-29 08:19] LABS: CALCIUM 9.5 mg/dL (8.6-10.2); CREATININE 1.1 mg/dL (0.5-0.9); GLOMERULAR FILTRATION RATE 49.3 mL/min (>60)
--- NOTE | 2016-08-29 09:21 | Infectious Diseases Prog Note ---
Assessment/Plan Assessment/Plan A: The patient is a 71-year-old female with Leukocytosis worsen due to Urin.Obst CT of Chest / A/P : no abscess , pt has dilation of bladder and Bl [place] ( probable dahlia to malfunction Foely Cath ) Sepsis ALOC due to sepsis CT of the head : ? maxillary sinus disease. ( not clinically significance ) UTI Ucx ESBL Kleb Ultrasound of the kidney, negative for hydronephrosis Diabetes Acute renal insufficiency , SP Hypertension CAD Schizoaffective disorder and bipolar disorder Dysphagia status post G-tube placement P: continue the patient on Merrem d# 5 / , upon DC will change to Invanz 1 gm daily to complete the course ( 08/25 SP vancomycin and cefepime d# 2 ) Monitor CBC Monitor BMP. Monitor LFT Replace Wright Cath CT findings were DW Rad and RN Subjective Constitutional: Denies: anorexia, chills, drenching sweats, fatigue, fever, no symptoms, other Allergies: Coded Allergies: ASPIRIN (Unverified Allergy, Unknown, 08/23/16) NIACIN (Unverified Allergy, Unknown, 08/23/16) PENICILLINS (Verified Allergy, Unknown, 12/18/08) Objective Vital Signs Last 24 Hour Vital Signs Date Time Temp Pulse Resp B/P Pulse Ox O2 Delivery O2 Flow Rate FiO2 08/29/16 08:13 98.2 66 18 164/56 95 08/29/16 04:00 97.0 103 18 126/82 95 Room Air 08/29/16 00:00 98.0 98 18 139/76 98 Room Air 08/28/16 21:06 98 135/79 08/28/16 20:18 91 20 Room Air 21 08/28/16 19:00 97.9 98 18 135/79 96 Room Air 08/28/16 18:40 98.0 08/28/16 16:16 98.0 92 20 152/101 97 Room Air 08/28/16 12:19 98.2 99 21 126/105 99 Room Air Height (Feet): 5 Height (Inches): 3.00 Weight (Pounds): 153 HEENT: atraumatic Respiratory/Chest: normal breath sounds Cardiovascular: normal rate Abdomen: non distended Laboratory Tests Test 08/29/16 07:10 White Blood Count 23.6 K/UL (4.8-10.8) *H Red Blood Count 3.88 M/UL (4.20-5.40) L Hemoglobin 11.4 G/DL (12.0-16.0) L Hematocrit 35.6 % (37.0-47.0) L Mean Corpuscular Volume 92 FL (80-99) Mean Corpuscular Hemoglobin 29.3 PG (27.0-31.0) Mean Corpuscular Hemoglobin Concent 32.0 G/DL (32.0-36.0) Red Cell Distribution Width 15.6 % (11.6-14.8) H Platelet Count 219 K/UL (150-450) Mean Platelet Volume 8.1 FL (6.5-10.1) Neutrophils (%) (Auto) % (45.0-75.0) Lymphocytes (%) (Auto) % (20.0-45.0) Monocytes (%) (Auto) % (1.0-10.0) Eosinophils (%) (Auto) % (0.0-3.0) Basophils (%) (Auto) % (0.0-2.0) Neutrophils % (Manual) Pending Lymphocytes % (Manual) Pending Platelet Estimate Pending Platelet Morphology Pending Sodium Level 146 mEQ/L (135-145) H Potassium Level 4.0 mEQ/L (3.4-4.9) Chloride Level 103 mEQ/L (98-107) Carbon Dioxide Level 24 mEQ/L (20-30) Anion Gap 19 (5-15) H Blood Urea Nitrogen 51 mg/dL (7-23) H Creatinine 1.1 mg/dL (0.5-0.9) H Estimat Glomerular Filtration Rate 49.3 mL/min (>60) Glucose Level 247 mg/dL (74-106) H Calcium Level 9.5 mg/dL (8.6-10.2) Current Medications Medications (Trade) Dose Ordered Sig/Nicholas Route PRN Reason Start Time Stop Time Status Last Admin Dose Admin Acetaminophen (Tylenol) 500 mg Q6H PRN ORAL Mild Pain/Temp > 100.5 08/25/16 17:15 09/24/16 17:14 Albuterol/ Ipratropium (DuoNeb 0.5-3(2.5)mg/3ml) 3 ml Q4H PRN HHN Shortness of Breath 08/25/16 04:00 4/11/17 03:59 Atorvastatin Calcium (Lipitor) 40 mg BEDTIME GT 08/25/16 21:00 09/24/16 20:59 08/28/16 21:05 Benazepril HCl (Lotensin) 40 mg DAILY GT 08/25/16 15:15 09/24/16 15:14 08/28/16 08:35 Carvedilol (Coreg) 6.25 mg EVERY 12 HOURS GT 08/26/16 21:00 09/25/16 20:59 08/28/16 21:06 Clonazepam (KlonoPIN) 1 mg Q6H PRN GT For Anxiety 08/25/16 17:15 09/01/16 17:14 Clonidine HCl (Catapres) 0.1 mg Q4H PRN ORAL SBP>160 08/25/16 15:15 09/24/16 15:14 08/28/16 03:10 Dextrose (Dextrose 50%) STAT PRN IV Hypoglycemia 08/25/16 20:00 09/24/16 19:59 Epoetin Mau (Procrit (for non ESRD use)) 6,000 units MON-MON-MON SUBQ 08/26/16 21:00 09/25/16 20:59 08/26/16 21:37 Fenofibrate (Tricor) 54 mg DAILY ORAL 08/26/16 09:00 09/25/16 08:59 08/28/16 08:35 Ferrous Sulfate (Feosol) 300 mg THREE TIMES A DAY GT 08/25/16 18:00 09/24/16 17:59 08/28/16 18:09 Heparin Sodium (Porcine) (Heparin 5000 units/ml) 5,000 units EVERY 12 HOURS SUBQ 08/25/16 09:00 09/24/16 08:59 08/28/16 21:12 Insulin Aspart (NovoLOG) Q6HR SUBQ 08/25/16 18:00 09/24/16 17:59 08/29/16 05:33 Magnesium Hydroxide (Mom) 30 ml DAILYPRN PRN ORAL Constipation 08/25/16 17:15 09/24/16 17:14 Meropenem/Sodium Chloride (Merrem/Sodium Chloride) 110 ml @ 220 mls/hr Q8HR IVPB 08/25/16 12:00 08/30/16 11:59 08/29/16 05:30 Morphine Sulfate (Morphine Sulfate) 2 mg Q4H PRN IVP Severe Pain (Pain Scale 7-10) 08/25/16 17:42 09/01/16 04:59 08/28/16 18:10 Multivitamins (Multivitamins) 1 tab DAILY ORAL 08/26/16 09:00 09/25/16 08:59 08/28/16 08:35 Nitroglycerin (Ntg) 0.4 mg Q5MIN X 3 DOSES PRN SL Prn Chest Pain 08/25/16 01:00 09/24/16 00:59 Olanzapine (ZyPREXA) 5 mg DAILY ORAL 08/26/16 09:00 09/25/16 08:59 08/28/16 08:35 Ondansetron HCl (Zofran) 4 mg Q6H PRN IVP Nausea & Vomiting 08/25/16 02:00 09/24/16 01:59 Polyethylene Glycol (Miralax) 17 gm DAILYPRN PRN ORAL Constipation 08/25/16 20:00 09/24/16 19:59 Temazepam 15 mg 15 mg HSPRN PRN ORAL Insomnia 08/25/16 20:00 09/01/16 19:59 Tramadol HCl (Ultram) 50 mg Q6H PRN ORAL Moderate Pain (Pain Scale 4-6) 08/25/16 17:15 09/01/16 17:14 08/25/16 20:44 Valproic Acid (Depakene) 250 mg TID GT 08/25/16 18:00 09/24/16 17:59 08/28/16 18:09 JACKY DAVENPORT M.D. Aug 29, 2016 09:21
--- NOTE | 2016-08-29 09:42 | Diagnostic Imaging Report ---
\H\CT THORAX\N\ Indications: Chest pain, leukocytosis Technique: Continuous helical CT imaging of the thorax and upper abdomen was performed with automatic exposure control following intravenous administration of nonionic iodine contrast, on a Siemens sensation [address] scanner. Axial, coronal, and sagittal images were reconstructed at 5 mm slice thickness. CTDI volume(s): 8, 41, 18, 16 mGy Total DLP: 1652 mGy-cm (Includes CT abdomen pelvis) Findings: Comparison: None Irregular pleural-based linear densities, subsegmental consolidation and volume loss are present in both lung bases. Small right pleural effusion is present. Heart is normal in size. No pericardial abnormality. No mediastinal or hilar enlarged lymph nodes, other abnormal mass or fluid collection. Scattered arterial mural calcifications. Elongation of thoracic aorta. Thoracic aorta and great vessels, central pulmonary arteries patent and well-opacified, otherwise normal in caliber and configuration. No obvious central intraluminal filling defects. Significant scoliosis of the thoracic spine results in significant thoracic deformity. No focal skeletal lesions are identified. Chest wall soft tissues nonfocal. One or more circumscribed subcentimeter low-attenuation foci suggested in right thyroid lobe. IMPRESSION: No evidence of abscess or other significant acute thoracic pathology Pulmonary bibasal subsegmental atelectasis Small right basal pleural effusion, nonspecific Arteriosclerosis Significant scoliosis Suggestion of small right thyroid nodules, nonspecific. Ultrasound correlation suggested. \H\CT ABDOMEN PELVIS\N\ Indications: Abdominal pain, leukocytosis Technique: Continuous helical CT imaging of the abdomen and pelvis was performed with automatic exposure control following administration of oral and intravenous nonionic iodine contrast, on a Siemens sensation [address] scanner. Axial, coronal, and sagittal images were reconstructed at 5 mm slice thickness. CTDI volume(s): As above mGy Total DLP: As above mGy-cm Findings: Comparison: CT abdomen pelvis 12/17/08 Oral contrast is passed throughout the gastrointestinal tract to the level of the rectum. Entire tract nondilated. No obvious mural thickening, adjacent stranding, extraluminal gas or fluid collections. Percutaneous gastrostomy tube now in place, well positioned. Surrounding soft tissues unremarkable. Questionable mild mural thickening of gallbladder. No obvious intraluminal stones, surrounding fluid or edema. Cluster of small nodular high attenuation foci in lower pole collecting system of right kidney. Bilateral renal collecting systems and ureters are mildly dilated 2 levels of the ureterovesical junctions. No ureteral stone or associated mass. Urinary bladder markedly distended despite Wright catheter in place. No intraluminal stone or obvious mural thickening. Moderate stranding surrounds the urinary bladder. Uterus absent. Neither ovary identified. Surgical clips in right adnexal region. Prominent arterial mural calcifications. No obvious flow-limiting stenosis or occlusion results. Liver, pancreas, spleen, adrenal glands, bilateral renal parenchyma, retroperitoneum, mesentery, remainder visualized pelvic anatomy unremarkable. Multilevel disc space narrowing with marginal osteophyte formation, facet hypertrophy in lumbar spine. No obvious significant spinal stenosis results. No focal skeletal lesion identified. Abdominopelvic wall soft tissues unremarkable. IMPRESSION: Marked distention of urinary bladder despite Wright catheter in place, suggesting occlusion of the latter. Recommend Wright catheter placement. Associated perivesical stranding suggests cystitis, though no obvious mural thickening. Mild bilateral hydronephrosis and hydroureter likely secondary to above Suggestion of nonobstructive right nephrolithiasis Suggestion of -- mild thickening of gallbladder wall, nonspecific. Ultrasound correlation suggested. Interval percutaneous gastrostomy tube placement, in good position, no associated abnormality Previous hysterectomy Arteriosclerosis Degenerative spondylosis Findings and recommendations discussed with Dr. Ricks, requesting physician, by telephone at time of this dictation
[2016-08-29 09:54] LABS: ANISOCYTOSIS 1+; BAND NEUTROPHILS % (MANUAL) 6 % (0-8); BASOPHILS % (MANUAL) 0 % (0-2); EOSINOPHILS % (MANUAL) 1 % (0-3); LYMPHOCYTES % (MANUAL) 4 % (20-45); NEUTROPHILS % (MANUAL) 87 % (45-75); PLATELET ESTIMATE ADEQUATE; PLATELET MORPHOLOGY NORMAL; TOTAL CELLS COUNTED 100
--- NOTE | 2016-08-29 10:18 | Internal Med Progress Note ---
Subjective Date of Service: Aug 29, 2016 Physician Name Brad Abreu Attending Physician Pete Hawkins MD Current Medications Medications (Trade) Dose Ordered Sig/Nicholas Route PRN Reason Start Time Stop Time Status Last Admin Dose Admin Acetaminophen (Tylenol) 500 mg Q6H PRN ORAL Mild Pain/Temp > 100.5 08/25/16 17:15 09/24/16 17:14 Albuterol/ Ipratropium (DuoNeb 0.5-3(2.5)mg/3ml) 3 ml Q4H PRN HHN Shortness of Breath 08/25/16 04:00 08/30/16 03:59 Atorvastatin Calcium (Lipitor) 40 mg BEDTIME GT 08/25/16 21:00 09/24/16 20:59 08/28/16 21:05 Benazepril HCl (Lotensin) 40 mg DAILY GT 08/25/16 15:15 09/24/16 15:14 08/28/16 08:35 Carvedilol (Coreg) 6.25 mg EVERY 12 HOURS GT 08/26/16 21:00 09/25/16 20:59 08/28/16 21:06 Clonazepam (KlonoPIN) 1 mg Q6H PRN GT For Anxiety 08/25/16 17:15 09/01/16 17:14 Clonidine HCl (Catapres) 0.1 mg Q4H PRN ORAL SBP>160 08/25/16 15:15 09/24/16 15:14 08/28/16 03:10 Dextrose (Dextrose 50%) STAT PRN IV Hypoglycemia 08/25/16 20:00 09/24/16 19:59 Epoetin Mau (Procrit (for non ESRD use)) 6,000 units MON-MON-MON SUBQ 08/26/16 21:00 09/25/16 20:59 08/26/16 21:37 Fenofibrate (Tricor) 54 mg DAILY ORAL 08/26/16 09:00 09/25/16 08:59 08/28/16 08:35 Ferrous Sulfate (Feosol) 300 mg THREE TIMES A DAY GT 08/25/16 18:00 09/24/16 17:59 08/28/16 18:09 Heparin Sodium (Porcine) (Heparin 5000 units/ml) 5,000 units EVERY 12 HOURS SUBQ 08/25/16 09:00 09/24/16 08:59 08/28/16 21:12 Insulin Aspart (NovoLOG) Q6HR SUBQ 08/25/16 18:00 09/24/16 17:59 08/29/16 05:33 Magnesium Hydroxide (Mom) 30 ml DAILYPRN PRN ORAL Constipation 08/25/16 17:15 09/24/16 17:14 Meropenem/Sodium Chloride (Merrem/Sodium Chloride) 110 ml @ 220 mls/hr Q8HR IVPB 08/25/16 12:00 08/30/16 11:59 08/29/16 05:30 Morphine Sulfate (Morphine Sulfate) 2 mg Q4H PRN IVP Severe Pain (Pain Scale 7-10) 08/25/16 17:42 09/01/16 04:59 08/28/16 18:10 Multivitamins (Multivitamins) 1 tab DAILY ORAL 08/26/16 09:00 09/25/16 08:59 08/28/16 08:35 Nitroglycerin (Ntg) 0.4 mg Q5MIN X 3 DOSES PRN SL Prn Chest Pain 08/25/16 01:00 09/24/16 00:59 Olanzapine (ZyPREXA) 5 mg DAILY ORAL 08/26/16 09:00 09/25/16 08:59 08/28/16 08:35 Ondansetron HCl (Zofran) 4 mg Q6H PRN IVP Nausea & Vomiting 08/25/16 02:00 09/24/16 01:59 Polyethylene Glycol (Miralax) 17 gm DAILYPRN PRN ORAL Constipation 08/25/16 20:00 09/24/16 19:59 Temazepam 15 mg 15 mg HSPRN PRN ORAL Insomnia 08/25/16 20:00 09/01/16 19:59 Tramadol HCl (Ultram) 50 mg Q6H PRN ORAL Moderate Pain (Pain Scale 4-6) 08/25/16 17:15 09/01/16 17:14 08/25/16 20:44 Valproic Acid (Depakene) 250 mg TID GT 08/25/16 18:00 09/24/16 17:59 08/28/16 18:09 Allergies: Coded Allergies: ASPIRIN (Unverified Allergy, Unknown, 08/23/16) NIACIN (Unverified Allergy, Unknown, 08/23/16) PENICILLINS (Verified Allergy, Unknown, 12/18/08) ROS Limited/Unobtainable: Yes Subjective 71 YO F admitted with altered mental status; now UTI. CT=obstructive uropathy? clogged borja cath? Cover for Int Med-Dr Hawkins. Objective Last Vital Signs Date Time Temp Pulse Resp B/P Pulse Ox O2 Delivery O2 Flow Rate FiO2 08/29/16 08:13 98.2 66 18 164/56 95 08/29/16 04:00 Room Air 08/28/16 20:18 21 08/23/16 19:47 2.0 Laboratory Tests Test 08/29/16 07:10 White Blood Count 23.6 K/UL (4.8-10.8) *H Red Blood Count 3.88 M/UL (4.20-5.40) L Hemoglobin 11.4 G/DL (12.0-16.0) L Hematocrit 35.6 % (37.0-47.0) L Mean Corpuscular Volume 92 FL (80-99) Mean Corpuscular Hemoglobin 29.3 PG (27.0-31.0) Mean Corpuscular Hemoglobin Concent 32.0 G/DL (32.0-36.0) Red Cell Distribution Width 15.6 % (11.6-14.8) H Platelet Count 219 K/UL (150-450) Mean Platelet Volume 8.1 FL (6.5-10.1) Neutrophils (%) (Auto) % (45.0-75.0) Lymphocytes (%) (Auto) % (20.0-45.0) Monocytes (%) (Auto) % (1.0-10.0) Eosinophils (%) (Auto) % (0.0-3.0) Basophils (%) (Auto) % (0.0-2.0) Differential Total Cells Counted 100 Neutrophils % (Manual) 87 % (45-75) H Lymphocytes % (Manual) 4 % (20-45) L Monocytes % (Manual) 2 % (1-10) Eosinophils % (Manual) 1 % (0-3) Basophils % (Manual) 0 % (0-2) Band Neutrophils 6 % (0-8) Platelet Estimate Adequate Platelet Morphology Normal Anisocytosis 1+ Sodium Level 146 mEQ/L (135-145) H Potassium Level 4.0 mEQ/L (3.4-4.9) Chloride Level 103 mEQ/L (98-107) Carbon Dioxide Level 24 mEQ/L (20-30) Anion Gap 19 (5-15) H Blood Urea Nitrogen 51 mg/dL (7-23) H Creatinine 1.1 mg/dL (0.5-0.9) H Estimat Glomerular Filtration Rate 49.3 mL/min (>60) Glucose Level 247 mg/dL (74-106) H Calcium Level 9.5 mg/dL (8.6-10.2) Intake and Output 08/28/16 08/29/16 19:00 07:00 Intake Total 822 ml 757 ml Output Total 500 ml Balance 322 ml 757 ml Intake Oral 0 ml Free Water 370 ml 130 ml IV Total 110 ml Tube Feeding 342 ml 627 ml Output Urine Total 500 ml # Bowel Movements 4 Objective General Appearance: WD/WN, no apparent distress, alert EENT: PERRL/EOMI, normal ENT inspection Neck: non-tender, normal alignment, supple Cardiovascular: normal peripheral pulses, normal rate, regular rhythm, no gallop/murmur, no JVD Respiratory/Chest: chest wall non-tender, lungs clear, normal breath sounds, no respiratory distress, no accessory muscle use Abdomen: normal bowel sounds, non tender, soft, no organomegaly, no mass Extremities: normal range of motion, non-tender Neurologic: bow string maker II-XII grossly normal, no motor/sensory deficits Skin: normal pigmentation, warm/dry Assessment/Plan Problem List: (1) CAD (coronary artery disease) (2) Schizoaffective disorder, bipolar type (3) Dysphagia (4) Hypercholesterolemia (5) UTI (urinary tract infection) Assessment & Plan: Multi drug resistant Klebsiella-See ID note. 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 Cont meropenem per ID (7) Altered mental status (8) Leukocytosis Assessment & Plan: Worsening. See ID note. Replace borja. Repeat Urine culture (9) Diabetes mellitus type II, uncontrolled Assessment & Plan: Continue novolog sliding scale. (10) Renal failure (11) HTN (hypertension) Assessment & Plan: Uncontrolled. Increase coreg. Cont lotesnin (12) Uropathy, obstructive Assessment & Plan: Replace borja cath. Repeat urine culture. Status: not improved ABREU,BRAD Aug 29, 2016 10:18
[2016-08-29] MEDS: Ferrous Sulfate 300 MG/5 ML UDC GT SCH ×3 (11:43→18:50)
[2016-08-29] MEDS: Valproic Acid 250mg/5ml Liquid GT SCH ×3 (11:44→18:50)
[2016-08-29] MEDS: Heparin 5000 units/ml inj SUBQ SCH ×2 (11:45→21:12)
--- NOTE | 2016-08-29 13:43 | Nephrology Progress Note ---
Assessment/Plan Problem List: (1) Sepsis (2) Altered level of consciousness (3) Dysphagia (4) UTI (urinary tract infection) (5) Leukocytosis (6) HUDSON (acute kidney injury) Plan Monitor lytes, correct as needed Monitor BUN/cr Monitor intake and output Abx per ID Monitor neuro status BP & BS control AM labs Subjective ROS Limited/Unobtainable: Yes Subjective In no distress, disoriented Objective Objective Last 24 Hour Vital Signs Date Time Temp Pulse Resp B/P Pulse Ox O2 Delivery O2 Flow Rate FiO2 08/29/16 12:15 98.2 112 20 158/102 96 Room Air 08/29/16 11:43 164/56 08/29/16 09:00 66 167/56 08/29/16 08:13 98.2 66 18 164/56 95 08/29/16 06:35 101 18 Room Air 21 08/29/16 04:00 97.0 103 18 126/82 95 Room Air 08/29/16 00:00 98.0 98 18 139/76 98 Room Air 08/28/16 21:06 98 135/79 08/28/16 20:18 91 20 Room Air 21 08/28/16 19:00 97.9 98 18 135/79 96 Room Air 08/28/16 18:40 98.0 08/28/16 16:16 98.0 92 20 152/101 97 Room Air Intake and Output 08/28/16 08/29/16 19:00 07:00 Intake Total 822 ml 757 ml Output Total 500 ml Balance 322 ml 757 ml Intake Oral 0 ml Free Water 370 ml 130 ml IV Total 110 ml Tube Feeding 342 ml 627 ml Output Urine Total 500 ml # Bowel Movements 4 Laboratory Tests 08/29/16 07:10: White Blood Count 23.6*H, Red Blood Count 3.88L, Hemoglobin 11.4L, Hematocrit 35.6L, Mean Corpuscular Volume 92, Mean Corpuscular Hemoglobin 29.3, Mean Corpuscular Hemoglobin Concent 32.0, Red Cell Distribution Width 15.6H, Platelet Count 219, Mean Platelet Volume 8.1, Neutrophils (%) (Auto) , Lymphocytes (%) (Auto) , Monocytes (%) (Auto) , Eosinophils (%) (Auto) , Basophils (%) (Auto) , Differential Total Cells Counted 100, Neutrophils % ( Manual) 87H, Lymphocytes % (Manual) 4L, Monocytes % (Manual) 2, Eosinophils % ( Manual) 1, Basophils % (Manual) 0, Band Neutrophils 6, Platelet Estimate Adequate, Platelet Morphology Normal, Anisocytosis 1+, Sodium Level 146H, Potassium Level 4.0, Chloride Level 103, Carbon Dioxide Level 24, Anion Gap 19H , Blood Urea Nitrogen 51H, Creatinine 1.1H, Estimat Glomerular Filtration Rate 49.3, Glucose Level 247H, Calcium Level 9.5 Height (Feet): 5 Height (Inches): 3.00 Weight (Pounds): 153 General Appearance: no apparent distress EENT: normal ENT inspection Neck: normal alignment, supple Cardiovascular: normal rate, regular rhythm, no JVD Respiratory/Chest: normal breath sounds, no respiratory distress Abdomen: soft, no organomegaly, other - PEG tube Genitourinary/Rectal: other - borja Extremities: non-tender, normal inspection Neurologic: disoriented Sofy Renteria N.P. Aug 29, 2016 13:43
[2016-08-29] MEDS ORDERED: Sterile Water Irrig 1000ml IRRIG ONE (15:12)
--- NOTE | 2016-08-29 15:49 | Pulmonology Progress Note ---
Assessment/Plan Problems: (1) Sepsis (2) ATN (acute tubular necrosis) (3) HTN (hypertension) (4) CVA (cerebral vascular accident) (5) Feeding by G-tube (6) Diabetes Assessment/Plan lees culture continue antibiotics pt doens't have any diarrhea, central line, no decubiti. will get cxr again abx as per ID f.u renal parameters. Subjective ROS Limited/Unobtainable: No Interval Events: awake, looks comfortable Allergies: Coded Allergies: ASPIRIN (Unverified Allergy, Unknown, 08/23/16) NIACIN (Unverified Allergy, Unknown, 08/23/16) PENICILLINS (Verified Allergy, Unknown, 12/18/08) Objective Last 24 Hour Vital Signs Date Time Temp Pulse Resp B/P Pulse Ox O2 Delivery O2 Flow Rate FiO2 08/29/16 12:15 98.2 112 20 158/102 96 Room Air 08/29/16 11:43 164/56 08/29/16 09:00 66 167/56 08/29/16 08:13 98.2 66 18 164/56 95 08/29/16 06:35 101 18 Room Air 21 08/29/16 04:00 97.0 103 18 126/82 95 Room Air 08/29/16 00:00 98.0 98 18 139/76 98 Room Air 08/28/16 21:06 98 135/79 08/28/16 20:18 91 20 Room Air 21 08/28/16 19:00 97.9 98 18 135/79 96 Room Air 08/28/16 18:40 98.0 08/28/16 16:16 98.0 92 20 152/101 97 Room Air Intake and Output 08/28/16 08/29/16 19:00 07:00 Intake Total 822 ml 757 ml Output Total 500 ml Balance 322 ml 757 ml Intake Oral 0 ml Free Water 370 ml 130 ml IV Total 110 ml Tube Feeding 342 ml 627 ml Output Urine Total 500 ml # Bowel Movements 4 Objective General Appearance: WD/WN Lines, tubes and drains: peripheral, PICC, gtube HEENT: normocephalic, anicteric Neck: non-tender, supple Respiratory/Chest: chest wall non-tender, lungs clear Breasts: no masses Cardiovascular/Chest: normal rate, regular rhythm Abdomen: normal bowel sounds, soft, PEG in place Genitourinary/Rectal: normal genital exam Skin Exam: normal pigmentation Laboratory Tests 08/29/16 07:10: White Blood Count 23.6*H, Red Blood Count 3.88L, Hemoglobin 11.4L, Hematocrit 35.6L, Mean Corpuscular Volume 92, Mean Corpuscular Hemoglobin 29.3, Mean Corpuscular Hemoglobin Concent 32.0, Red Cell Distribution Width 15.6H, Platelet Count 219, Mean Platelet Volume 8.1, Neutrophils (%) (Auto) , Lymphocytes (%) (Auto) , Monocytes (%) (Auto) , Eosinophils (%) (Auto) , Basophils (%) (Auto) , Differential Total Cells Counted 100, Neutrophils % ( Manual) 87H, Lymphocytes % (Manual) 4L, Monocytes % (Manual) 2, Eosinophils % ( Manual) 1, Basophils % (Manual) 0, Band Neutrophils 6, Platelet Estimate Adequate, Platelet Morphology Normal, Anisocytosis 1+, Sodium Level 146H, Potassium Level 4.0, Chloride Level 103, Carbon Dioxide Level 24, Anion Gap 19H , Blood Urea Nitrogen 51H, Creatinine 1.1H, Estimat Glomerular Filtration Rate 49.3, Glucose Level 247H, Calcium Level 9.5 Current Medications Medications (Trade) Dose Ordered Sig/Nicholas Route PRN Reason Start Time Stop Time Status Last Admin Dose Admin Acetaminophen (Tylenol) 500 mg Q6H PRN ORAL Mild Pain/Temp > 100.5 08/25/16 17:15 09/24/16 17:14 Albuterol/ Ipratropium (DuoNeb 0.5-3(2.5)mg/3ml) 3 ml Q4H PRN HHN Shortness of Breath 08/25/16 04:00 08/30/16 03:59 Atorvastatin Calcium (Lipitor) 40 mg BEDTIME GT 08/25/16 21:00 09/24/16 20:59 08/28/16 21:05 Benazepril HCl (Lotensin) 40 mg DAILY GT 08/25/16 15:15 09/24/16 15:14 08/29/16 11:43 Carvedilol (Coreg) 6.25 mg EVERY 12 HOURS GT 08/26/16 21:00 09/25/16 20:59 08/29/16 09:00 Clonazepam (KlonoPIN) 1 mg Q6H PRN GT For Anxiety 08/25/16 17:15 09/01/16 17:14 Clonidine HCl (Catapres) 0.1 mg Q4H PRN ORAL SBP>160 08/25/16 15:15 09/24/16 15:14 08/28/16 03:10 Dextrose (Dextrose 50%) STAT PRN IV Hypoglycemia 08/25/16 20:00 09/24/16 19:59 Epoetin Mau (Procrit (for non ESRD use)) 6,000 units MON-MON-MON SUBQ 08/26/16 21:00 09/25/16 20:59 08/26/16 21:37 Fenofibrate (Tricor) 54 mg DAILY ORAL 08/26/16 09:00 09/25/16 08:59 08/29/16 11:43 Ferrous Sulfate (Feosol) 300 mg THREE TIMES A DAY GT 08/25/16 18:00 09/24/16 17:59 08/29/16 13:10 Heparin Sodium (Porcine) (Heparin 5000 units/ml) 5,000 units EVERY 12 HOURS SUBQ 08/25/16 09:00 09/24/16 08:59 08/29/16 11:45 Insulin Aspart (NovoLOG) Q6HR SUBQ 08/25/16 18:00 09/24/16 17:59 08/29/16 13:06 Magnesium Hydroxide (Mom) 30 ml DAILYPRN PRN ORAL Constipation 08/25/16 17:15 09/24/16 17:14 Meropenem/Sodium Chloride (Merrem/Sodium Chloride) 110 ml @ 220 mls/hr Q8HR IVPB 08/25/16 12:00 09/07/16 23:59 08/29/16 14:46 Morphine Sulfate (Morphine Sulfate) 2 mg Q4H PRN IVP Severe Pain (Pain Scale 7-10) 08/25/16 17:42 09/01/16 04:59 08/28/16 18:10 Multivitamins (Multivitamins) 1 tab DAILY ORAL 08/26/16 09:00 09/25/16 08:59 08/29/16 09:00 Nitroglycerin (Ntg) 0.4 mg Q5MIN X 3 DOSES PRN SL Prn Chest Pain 08/25/16 01:00 09/24/16 00:59 Olanzapine (ZyPREXA) 5 mg DAILY ORAL 08/26/16 09:00 09/25/16 08:59 08/29/16 09:00 Ondansetron HCl (Zofran) 4 mg Q6H PRN IVP Nausea & Vomiting 08/25/16 02:00 09/24/16 01:59 Polyethylene Glycol (Miralax) 17 gm DAILYPRN PRN ORAL Constipation 08/25/16 20:00 09/24/16 19:59 Temazepam 15 mg 15 mg HSPRN PRN ORAL Insomnia 08/25/16 20:00 09/01/16 19:59 Tramadol HCl (Ultram) 50 mg Q6H PRN ORAL Moderate Pain (Pain Scale 4-6) 08/25/16 17:15 09/01/16 17:14 08/25/16 20:44 Valproic Acid (Depakene) 250 mg TID GT 08/25/16 18:00 09/24/16 17:59 08/29/16 13:10 MAGDA SAUL Aug 29, 2016 15:49
[2016-08-29] MEDS: Epogen (for non ESRD use) SUBQ SCH (21:00)
[2016-08-29] MEDS: Morphine Sulfate 2mg/ml Inj IVP PRN (23:08)
[2016-08-30] VITALS (7 sets, daily range): BP systolic 132–169; BP diastolic 73–92
[2016-08-30] MEDS: Meropenem 1 GM in NS 110 ML IVPB SCH ×3 (05:44→21:29)
[2016-08-30] MEDS: NovoLOG Insulin Flexpen SUBQ SCH ×4 (05:45→23:33)
[2016-08-30 06:52] LABS: MEAN CORPUSCULAR HEMOGLOBIN 30.1 PG (27.0-31.0); MEAN CORPUSCULAR HGB CONC 32.5 G/DL (32.0-36.0); MEAN CORPUSCULAR VOLUME 93 FL (80-99); MEAN PLATELET VOLUME 8.5 FL (6.5-10.1); PLATELET COUNT 252 K/UL (150-450); RED BLOOD COUNT 3.54 M/UL (4.20-5.40); RED CELL DISTRIBUTION WIDTH 15.5 % (11.6-14.8); WHITE BLOOD COUNT 16.1 K/UL (4.8-10.8)
[2016-08-30 06:57] LABS: CALCIUM 9.9 mg/dL (8.6-10.2); POTASSIUM 4.3 mEQ/L (3.4-4.9)
[2016-08-30 08:39] LABS: ANISOCYTOSIS 1+; BAND NEUTROPHILS % (MANUAL) 1 % (0-8); BASOPHILS % (MANUAL) 0 % (0-2); EOSINOPHILS % (MANUAL) 1 % (0-3); LYMPHOCYTES % (MANUAL) 2 % (20-45); NEUTROPHILS % (MANUAL) 91 % (45-75); PLATELET ESTIMATE ADEQUATE; PLATELET MORPHOLOGY NORMAL; TOTAL CELLS COUNTED 100
--- NOTE | 2016-08-30 08:39 | Infectious Diseases Prog Note ---
Assessment/Plan Assessment/Plan A: The patient is a 71-year-old female with Leukocytosis due to Urin.Obst, improving after change of Wright CT of Chest / A/P : no abscess , pt has dilation of bladder and Bl [place] ( probable dahlia to malfunction Foely Cath ) Sepsis ALOC due to sepsis CT of the head : ? maxillary sinus disease. ( not clinically significance ) UTI Ucx ESBL Kleb Ultrasound of the kidney, negative for hydronephrosis Diabetes Acute renal insufficiency , SP Hypertension CAD Schizoaffective disorder and bipolar disorder Dysphagia status post G-tube placement P: continue the patient on Merrem d# / , upon DC will change to Invanz 1 gm daily to complete the course ( 08/25 SP vancomycin and cefepime d# 2 ) Monitor CBC Monitor BMP. Monitor LFT Urine Cx CT findings were DW Rad and RN Subjective Constitutional: Denies: anorexia, chills, drenching sweats, fatigue, fever, no symptoms, other Allergies: Coded Allergies: ASPIRIN (Unverified Allergy, Unknown, 08/23/16) NIACIN (Unverified Allergy, Unknown, 08/23/16) PENICILLINS (Verified Allergy, Unknown, 12/18/08) Objective Vital Signs Last 24 Hour Vital Signs Date Time Temp Pulse Resp B/P Pulse Ox O2 Delivery O2 Flow Rate FiO2 08/30/16 08:08 98.8 109 21 169/87 96 Room Air 08/30/16 06:00 150/79 08/30/16 04:37 167/72 08/30/16 04:00 97.7 105 20 160/92 96 Room Air 08/30/16 00:00 97.2 92 20 145/76 95 Room Air 08/29/16 21:21 103 142/80 08/29/16 20:00 98.2 103 20 142/80 96 Room Air 08/29/16 19:51 97 18 Room Air 21 08/29/16 18:37 103/73 08/29/16 16:02 98.1 104 20 145/105 98 Room Air 08/29/16 12:15 98.2 112 20 158/102 96 Room Air 08/29/16 11:43 164/56 08/29/16 09:00 66 167/56 Height (Feet): 5 Height (Inches): 3.00 Weight (Pounds): 153 HEENT: atraumatic Respiratory/Chest: lungs clear Cardiovascular: regular rhythm Abdomen: soft, non tender Laboratory Tests Test 08/30/16 05:35 White Blood Count 16.1 K/UL (4.8-10.8) H Red Blood Count 3.54 M/UL (4.20-5.40) L Hemoglobin 10.7 G/DL (12.0-16.0) L Hematocrit 32.8 % (37.0-47.0) L Mean Corpuscular Volume 93 FL (80-99) Mean Corpuscular Hemoglobin 30.1 PG (27.0-31.0) Mean Corpuscular Hemoglobin Concent 32.5 G/DL (32.0-36.0) Red Cell Distribution Width 15.5 % (11.6-14.8) H Platelet Count 252 K/UL (150-450) Mean Platelet Volume 8.5 FL (6.5-10.1) Neutrophils (%) (Auto) % (45.0-75.0) Lymphocytes (%) (Auto) % (20.0-45.0) Monocytes (%) (Auto) % (1.0-10.0) Eosinophils (%) (Auto) % (0.0-3.0) Basophils (%) (Auto) % (0.0-2.0) Neutrophils % (Manual) Pending Lymphocytes % (Manual) Pending Platelet Estimate Pending Platelet Morphology Pending Sodium Level 150 mEQ/L (135-145) H Potassium Level 4.3 mEQ/L (3.4-4.9) Chloride Level 110 mEQ/L (98-107) H Carbon Dioxide Level 29 mEQ/L (20-30) Anion Gap 11 (5-15) Blood Urea Nitrogen 45 mg/dL (7-23) H Creatinine 1.0 mg/dL (0.5-0.9) H Estimat Glomerular Filtration Rate 55.0 mL/min (>60) Glucose Level 288 mg/dL (74-106) H Calcium Level 9.9 mg/dL (8.6-10.2) Current Medications Medications (Trade) Dose Ordered Sig/Nicholas Route PRN Reason Start Time Stop Time Status Last Admin Dose Admin Acetaminophen (Tylenol) 500 mg Q6H PRN ORAL Mild Pain/Temp > 100.5 08/25/16 17:15 09/24/16 17:14 Atorvastatin Calcium (Lipitor) 40 mg BEDTIME GT 08/25/16 21:00 09/24/16 20:59 08/29/16 21:21 Benazepril HCl (Lotensin) 40 mg DAILY GT 08/25/16 15:15 09/24/16 15:14 08/29/16 11:43 Carvedilol (Coreg) 6.25 mg EVERY 12 HOURS GT 08/26/16 21:00 09/25/16 20:59 08/29/16 21:21 Clonazepam (KlonoPIN) 1 mg Q6H PRN GT For Anxiety 08/25/16 17:15 09/01/16 17:14 Clonidine HCl (Catapres) 0.1 mg Q4H PRN ORAL SBP>160 08/25/16 15:15 09/24/16 15:14 08/30/16 04:37 Dextrose (Dextrose 50%) STAT PRN IV Hypoglycemia 08/25/16 20:00 09/24/16 19:59 Epoetin Mau (Procrit (for non ESRD use)) 6,000 units MON-MON-MON SUBQ 08/26/16 21:00 09/25/16 20:59 08/26/16 21:37 Fenofibrate (Tricor) 54 mg DAILY ORAL 08/26/16 09:00 09/25/16 08:59 08/29/16 11:43 Ferrous Sulfate (Feosol) 300 mg THREE TIMES A DAY GT 08/25/16 18:00 09/24/16 17:59 08/29/16 18:50 Heparin Sodium (Porcine) (Heparin 5000 units/ml) 5,000 units EVERY 12 HOURS SUBQ 08/25/16 09:00 09/24/16 08:59 08/29/16 21:12 Insulin Aspart (NovoLOG) Q6HR SUBQ 08/25/16 18:00 09/24/16 17:59 08/30/16 05:45 Magnesium Hydroxide (Mom) 30 ml DAILYPRN PRN ORAL Constipation 08/25/16 17:15 09/24/16 17:14 Meropenem/Sodium Chloride (Merrem/Sodium Chloride) 110 ml @ 220 mls/hr Q8HR IVPB 08/25/16 12:00 09/07/16 23:59 08/30/16 05:44 Morphine Sulfate (Morphine Sulfate) 2 mg Q4H PRN IVP Severe Pain (Pain Scale 7-10) 08/25/16 17:42 09/01/16 04:59 08/29/16 23:08 Multivitamins (Multivitamins) 1 tab DAILY ORAL 08/26/16 09:00 09/25/16 08:59 08/29/16 09:00 Nitroglycerin (Ntg) 0.4 mg Q5MIN X 3 DOSES PRN SL Prn Chest Pain 08/25/16 01:00 09/24/16 00:59 Olanzapine (ZyPREXA) 5 mg DAILY ORAL 08/26/16 09:00 09/25/16 08:59 08/29/16 09:00 Ondansetron HCl (Zofran) 4 mg Q6H PRN IVP Nausea & Vomiting 08/25/16 02:00 09/24/16 01:59 Polyethylene Glycol (Miralax) 17 gm DAILYPRN PRN ORAL Constipation 08/25/16 20:00 09/24/16 19:59 Temazepam 15 mg 15 mg HSPRN PRN ORAL Insomnia 08/25/16 20:00 09/01/16 19:59 Tramadol HCl (Ultram) 50 mg Q6H PRN ORAL Moderate Pain (Pain Scale 4-6) 08/25/16 17:15 09/01/16 17:14 08/25/16 20:44 Valproic Acid (Depakene) 250 mg TID GT 08/25/16 18:00 09/24/16 17:59 08/29/16 18:50 JACKY DAVENPORT M.D. Aug 30, 2016 08:39
[2016-08-30 08:40] LABS: POLYCHROMASIA 1+
[2016-08-30] MEDS: Ferrous Sulfate 300 MG/5 ML UDC GT SCH ×3 (09:09→17:18)
[2016-08-30] MEDS: Valproic Acid 250mg/5ml Liquid GT SCH ×3 (09:09→17:19)
[2016-08-30] MEDS: Heparin 5000 units/ml inj SUBQ SCH ×2 (09:11→21:17)
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
--- NOTE | 2016-08-30 16:06 | Internal Med Progress Note ---
Subjective Date of Service: Aug 30, 2016 Physician Name Abreu,Brad Attending Physician Pete Hawkins MD Current Medications Medications (Trade) Dose Ordered Sig/Nicholas Route PRN Reason Start Time Stop Time Status Last Admin Dose Admin Acetaminophen (Tylenol) 500 mg Q6H PRN ORAL Mild Pain/Temp > 100.5 08/25/16 17:15 09/24/16 17:14 Atorvastatin Calcium (Lipitor) 40 mg BEDTIME GT 08/25/16 21:00 09/24/16 20:59 08/29/16 21:21 Benazepril HCl (Lotensin) 40 mg DAILY GT 08/25/16 15:15 09/24/16 15:14 08/30/16 09:08 Carvedilol (Coreg) 6.25 mg EVERY 12 HOURS GT 08/26/16 21:00 09/25/16 20:59 08/30/16 09:10 Clonazepam (KlonoPIN) 1 mg Q6H PRN GT For Anxiety 08/25/16 17:15 09/01/16 17:14 Clonidine HCl (Catapres) 0.1 mg Q4H PRN ORAL SBP>160 08/25/16 15:15 09/24/16 15:14 08/30/16 09:09 Dextrose (Dextrose 50%) STAT PRN IV Hypoglycemia 08/25/16 20:00 09/24/16 19:59 Epoetin Mau (Procrit (for non ESRD use)) 6,000 units MON-WED-MON SUBQ 08/26/16 21:00 09/25/16 20:59 08/26/16 21:37 Fenofibrate (Tricor) 54 mg DAILY ORAL 08/26/16 09:00 09/25/16 08:59 08/30/16 09:10 Ferrous Sulfate (Feosol) 300 mg THREE TIMES A DAY GT 08/25/16 18:00 09/24/16 17:59 08/30/16 12:44 Heparin Sodium (Porcine) (Heparin 5000 units/ml) 5,000 units EVERY 12 HOURS SUBQ 08/25/16 09:00 09/24/16 08:59 08/30/16 09:11 Insulin Aspart (NovoLOG) Q6HR SUBQ 08/25/16 18:00 09/24/16 17:59 08/30/16 11:46 Magnesium Hydroxide (Mom) 30 ml DAILYPRN PRN ORAL Constipation 08/25/16 17:15 09/24/16 17:14 Meropenem/Sodium Chloride (Merrem/Sodium Chloride) 110 ml @ 220 mls/hr Q8HR IVPB 08/25/16 12:00 09/07/16 23:59 08/30/16 13:27 Morphine Sulfate (Morphine Sulfate) 2 mg Q4H PRN IVP Severe Pain (Pain Scale 7-10) 08/25/16 17:42 09/01/16 04:59 08/29/16 23:08 Multivitamins (Multivitamins) 1 tab DAILY ORAL 08/26/16 09:00 09/25/16 08:59 08/30/16 09:10 Nitroglycerin (Ntg) 0.4 mg Q5MIN X 3 DOSES PRN SL Prn Chest Pain 08/25/16 01:00 09/24/16 00:59 Olanzapine (ZyPREXA) 5 mg DAILY ORAL 08/26/16 09:00 09/25/16 08:59 08/30/16 09:09 Ondansetron HCl (Zofran) 4 mg Q6H PRN IVP Nausea & Vomiting 08/25/16 02:00 09/24/16 01:59 Polyethylene Glycol (Miralax) 17 gm DAILYPRN PRN ORAL Constipation 08/25/16 20:00 09/24/16 19:59 Temazepam 15 mg 15 mg HSPRN PRN ORAL Insomnia 08/25/16 20:00 09/01/16 19:59 Tramadol HCl (Ultram) 50 mg Q6H PRN ORAL Moderate Pain (Pain Scale 4-6) 08/25/16 17:15 09/01/16 17:14 08/25/16 20:44 Valproic Acid (Depakene) 250 mg TID GT 08/25/16 18:00 09/24/16 17:59 08/30/16 12:44 Allergies: Coded Allergies: ASPIRIN (Unverified Allergy, Unknown, 08/23/16) NIACIN (Unverified Allergy, Unknown, 08/23/16) PENICILLINS (Verified Allergy, Unknown, 12/18/08) ROS Limited/Unobtainable: Yes Subjective 71 YO F admitted with altered mental status; now UTI. S/P borja change with resolution of obstruction. Cover for Int Med-Dr Hawkins. Objective Last Vital Signs Date Time Temp Pulse Resp B/P Pulse Ox O2 Delivery O2 Flow Rate FiO2 08/30/16 11:28 98.6 94 20 132/73 95 Room Air 08/30/16 09:06 21 08/23/16 19:47 2.0 Laboratory Tests Test 08/30/16 05:35 White Blood Count 16.1 K/UL (4.8-10.8) H Red Blood Count 3.54 M/UL (4.20-5.40) L Hemoglobin 10.7 G/DL (12.0-16.0) L Hematocrit 32.8 % (37.0-47.0) L Mean Corpuscular Volume 93 FL (80-99) Mean Corpuscular Hemoglobin 30.1 PG (27.0-31.0) Mean Corpuscular Hemoglobin Concent 32.5 G/DL (32.0-36.0) Red Cell Distribution Width 15.5 % (11.6-14.8) H Platelet Count 252 K/UL (150-450) Mean Platelet Volume 8.5 FL (6.5-10.1) Neutrophils (%) (Auto) % (45.0-75.0) Lymphocytes (%) (Auto) % (20.0-45.0) Monocytes (%) (Auto) % (1.0-10.0) Eosinophils (%) (Auto) % (0.0-3.0) Basophils (%) (Auto) % (0.0-2.0) Differential Total Cells Counted 100 Neutrophils % (Manual) 91 % (45-75) H Lymphocytes % (Manual) 2 % (20-45) L Monocytes % (Manual) 5 % (1-10) Eosinophils % (Manual) 1 % (0-3) Basophils % (Manual) 0 % (0-2) Band Neutrophils 1 % (0-8) Platelet Estimate Adequate Platelet Morphology Normal Polychromasia 1+ Anisocytosis 1+ Sodium Level 150 mEQ/L (135-145) H Potassium Level 4.3 mEQ/L (3.4-4.9) Chloride Level 110 mEQ/L (98-107) H Carbon Dioxide Level 29 mEQ/L (20-30) Anion Gap 11 (5-15) Blood Urea Nitrogen 45 mg/dL (7-23) H Creatinine 1.0 mg/dL (0.5-0.9) H Estimat Glomerular Filtration Rate 55.0 mL/min (>60) Glucose Level 288 mg/dL (74-106) H Calcium Level 9.9 mg/dL (8.6-10.2) Intake and Output 08/29/16 08/30/16 19:00 07:00 Intake Total 964 ml 167 ml Output Total 1950 ml Balance 964 ml -1783 ml Free Water 500 ml IV Total 110 ml Tube Feeding 114 ml 57 ml Other 350 ml Output Urine Total 1950 ml # Bowel Movements 1 2 Objective General Appearance: WD/WN, no apparent distress, alert EENT: PERRL/EOMI, normal ENT inspection Neck: non-tender, normal alignment, supple Cardiovascular: normal peripheral pulses, normal rate, regular rhythm, no gallop/murmur, no JVD Respiratory/Chest: chest wall non-tender, lungs clear, normal breath sounds, no respiratory distress, no accessory muscle use Abdomen: normal bowel sounds, non tender, soft, no organomegaly, no mass Extremities: normal range of motion, non-tender 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 Cont meropenem per ID (7) Altered mental status (8) Leukocytosis Assessment & Plan: Improving; S/P borja change. See ID note. Repeat Urine culture (9) Diabetes mellitus type II, uncontrolled Assessment & Plan: Continue novolog sliding scale. (10) Renal failure (11) HTN (hypertension) Assessment & Plan: Uncontrolled. Increase coreg. Cont lotesnin (12) Uropathy, obstructive Assessment & Plan: Replace borja cath. Repeat urine culture. Status: progressing Assessment/Plan Discharge planning: [facility] nursing [facility] 1-2 days. BRAD ABREU Aug 30, 2016 16:06
--- NOTE | 2016-08-30 22:24 | Pulmonology Progress Note ---
Assessment/Plan Problems: (1) Sepsis (2) ATN (acute tubular necrosis) (3) HTN (hypertension) (4) CVA (cerebral vascular accident) (5) Feeding by G-tube (6) Diabetes Assessment/Plan lees culture continue antibiotics pt doens't have any diarrhea, central line, no decubiti. will get cxr again abx as per ID f.u renal parameters. Subjective Allergies: Coded Allergies: ASPIRIN (Unverified Allergy, Unknown, 08/23/16) NIACIN (Unverified Allergy, Unknown, 08/23/16) PENICILLINS (Verified Allergy, Unknown, 12/18/08) Objective Last 24 Hour Vital Signs Date Time Temp Pulse Resp B/P Pulse Ox O2 Delivery O2 Flow Rate FiO2 08/30/16 21:16 98 156/88 08/30/16 20:00 99.5 98 20 156/88 95 Room Air 08/30/16 19:11 101 18 Room Air 08/30/16 16:06 98.2 97 20 156/79 96 Room Air 08/30/16 11:28 98.6 94 20 132/73 95 Room Air 08/30/16 09:10 109 169/87 08/30/16 09:09 169/87 08/30/16 09:08 169/87 08/30/16 09:06 108 20 Room Air 21 08/30/16 08:08 98.8 109 21 169/87 96 Room Air 08/30/16 06:00 150/79 08/30/16 04:37 167/72 08/30/16 04:00 97.7 105 20 160/92 96 Room Air 08/30/16 00:00 97.2 92 20 145/76 95 Room Air Intake and Output 08/29/16 08/30/16 19:00 07:00 Intake Total 964 ml 167 ml Output Total 1950 ml Balance 964 ml -1783 ml Free Water 500 ml IV Total 110 ml Tube Feeding 114 ml 57 ml Other 350 ml Output Urine Total 1950 ml # Bowel Movements 1 2 Objective General Appearance: WD/WN Lines, tubes and drains: peripheral, PICC, gtube HEENT: normocephalic, anicteric Neck: non-tender, supple Respiratory/Chest: chest wall non-tender, lungs clear Breasts: no masses Cardiovascular/Chest: normal rate, regular rhythm Abdomen: normal bowel sounds, soft, PEG in place Genitourinary/Rectal: normal genital exam Skin Exam: normal pigmentation Laboratory Tests 08/30/16 05:35: White Blood Count 16.1H, Red Blood Count 3.54L, Hemoglobin 10.7L, Hematocrit 32.8L, Mean Corpuscular Volume 93, Mean Corpuscular Hemoglobin 30.1, Mean Corpuscular Hemoglobin Concent 32.5, Red Cell Distribution Width 15.5H, Platelet Count 252, Mean Platelet Volume 8.5, Neutrophils (%) (Auto) , Lymphocytes (%) (Auto) , Monocytes (%) (Auto) , Eosinophils (%) (Auto) , Basophils (%) (Auto) , Differential Total Cells Counted 100, Neutrophils % ( Manual) 91H, Lymphocytes % (Manual) 2L, Monocytes % (Manual) 5, Eosinophils % ( Manual) 1, Basophils % (Manual) 0, Band Neutrophils 1, Platelet Estimate Adequate, Platelet Morphology Normal, Polychromasia 1+, Anisocytosis 1+, Sodium Level 150H, Potassium Level 4.3, Chloride Level 110H, Carbon Dioxide Level 29, Anion Gap 11, Blood Urea Nitrogen 45H, Creatinine 1.0H, Estimat Glomerular Filtration Rate 55.0, Glucose Level 288H, Calcium Level 9.9 Current Medications Medications (Trade) Dose Ordered Sig/Nicholas Route PRN Reason Start Time Stop Time Status Last Admin Dose Admin Acetaminophen (Tylenol) 500 mg Q6H PRN ORAL Mild Pain/Temp > 100.5 08/25/16 17:15 09/24/16 17:14 Atorvastatin Calcium (Lipitor) 40 mg BEDTIME GT 08/25/16 21:00 09/24/16 20:59 08/30/16 21:16 Benazepril HCl (Lotensin) 40 mg DAILY GT 08/25/16 15:15 09/24/16 15:14 08/30/16 09:08 Carvedilol (Coreg) 6.25 mg EVERY 12 HOURS GT 08/26/16 21:00 09/25/16 20:59 08/30/16 21:16 Clonazepam (KlonoPIN) 1 mg Q6H PRN GT For Anxiety 08/25/16 17:15 09/01/16 17:14 Clonidine HCl (Catapres) 0.1 mg Q4H PRN ORAL SBP>160 08/25/16 15:15 09/24/16 15:14 08/30/16 09:09 Dextrose (Dextrose 50%) STAT PRN IV Hypoglycemia 08/25/16 20:00 09/24/16 19:59 Epoetin Mau (Procrit (for non ESRD use)) 6,000 units MON-WED-MON SUBQ 08/26/16 21:00 09/25/16 20:59 08/26/16 21:37 Fenofibrate (Tricor) 54 mg DAILY ORAL 08/26/16 09:00 09/25/16 08:59 08/30/16 09:10 Ferrous Sulfate (Feosol) 300 mg THREE TIMES A DAY GT 08/25/16 18:00 09/24/16 17:59 08/30/16 17:18 Heparin Sodium (Porcine) (Heparin 5000 units/ml) 5,000 units EVERY 12 HOURS SUBQ 08/25/16 09:00 09/24/16 08:59 08/30/16 21:17 Insulin Aspart (NovoLOG) Q6HR SUBQ 08/25/16 18:00 09/24/16 17:59 08/30/16 17:21 Magnesium Hydroxide (Mom) 30 ml DAILYPRN PRN ORAL Constipation 08/25/16 17:15 09/24/16 17:14 Meropenem/Sodium Chloride (Merrem/Sodium Chloride) 110 ml @ 220 mls/hr Q8HR IVPB 08/25/16 12:00 09/07/16 23:59 08/30/16 21:29 Morphine Sulfate (Morphine Sulfate) 2 mg Q4H PRN IVP Severe Pain (Pain Scale 7-10) 08/25/16 17:42 09/01/16 04:59 08/29/16 23:08 Multivitamins (Multivitamins) 1 tab DAILY ORAL 08/26/16 09:00 09/25/16 08:59 08/30/16 09:10 Nitroglycerin (Ntg) 0.4 mg Q5MIN X 3 DOSES PRN SL Prn Chest Pain 08/25/16 01:00 09/24/16 00:59 Olanzapine (ZyPREXA) 5 mg DAILY ORAL 08/26/16 09:00 09/25/16 08:59 08/30/16 09:09 Ondansetron HCl (Zofran) 4 mg Q6H PRN IVP Nausea & Vomiting 08/25/16 02:00 09/24/16 01:59 Polyethylene Glycol (Miralax) 17 gm DAILYPRN PRN ORAL Constipation 08/25/16 20:00 09/24/16 19:59 Temazepam 15 mg 15 mg HSPRN PRN ORAL Insomnia 08/25/16 20:00 09/01/16 19:59 Tramadol HCl (Ultram) 50 mg Q6H PRN ORAL Moderate Pain (Pain Scale 4-6) 08/25/16 17:15 09/01/16 17:14 08/25/16 20:44 Valproic Acid (Depakene) 250 mg TID GT 08/25/16 18:00 09/24/16 17:59 08/30/16 17:19 MAGDA SAUL Aug 30, 2016 22:24
[2016-08-31] VITALS (8 sets, daily range): BP systolic 107–185; BP diastolic 56–112
[2016-08-31] MEDS: Meropenem 1 GM in NS 110 ML IVPB SCH ×3 (05:32→23:23)
[2016-08-31] MEDS: NovoLOG Insulin Flexpen SUBQ SCH ×4 (05:32→23:30)
[2016-08-31 07:16] LABS: BASOPHILS % (AUTO) 0.9 % (0.0-2.0); LYMPHOCYTES % (AUTO) 13.3 % (20.0-45.0); MEAN CORPUSCULAR HEMOGLOBIN 29.5 PG (27.0-31.0); MEAN CORPUSCULAR HGB CONC 31.8 G/DL (32.0-36.0); MEAN CORPUSCULAR VOLUME 93 FL (80-99); MEAN PLATELET VOLUME 8.4 FL (6.5-10.1); MONOCYTES % (AUTO) 6.6 % (1.0-10.0); NEUTROPHILS % (AUTO) 76.2 % (45.0-75.0); PLATELET COUNT 226 K/UL (150-450); RED BLOOD COUNT 3.65 M/UL (4.20-5.40); RED CELL DISTRIBUTION WIDTH 15.8 % (11.6-14.8); WHITE BLOOD COUNT 15.1 K/UL (4.8-10.8)
[2016-08-31 07:24] LABS: CALCIUM 9.6 mg/dL (8.6-10.2); POTASSIUM 4.1 mEQ/L (3.4-4.9)
[2016-08-31] MEDS: Ferrous Sulfate 300 MG/5 ML UDC GT SCH ×3 (09:03→18:34)
[2016-08-31] MEDS: Valproic Acid 250mg/5ml Liquid GT SCH ×3 (09:04→18:35)
[2016-08-31] MEDS: Heparin 5000 units/ml inj SUBQ SCH ×2 (09:10→23:31)
--- NOTE | 2016-08-31 11:42 | Internal Med Progress Note ---
Subjective Date of Service: Aug 31, 2016 Physician Name Brad Abreu Attending Physician Pete Hawkins MD Current Medications Medications (Trade) Dose Ordered Sig/Nicholas Route PRN Reason Start Time Stop Time Status Last Admin Dose Admin Acetaminophen (Tylenol) 500 mg Q6H PRN ORAL Mild Pain/Temp > 100.5 08/25/16 17:15 09/24/16 17:14 Atorvastatin Calcium (Lipitor) 40 mg BEDTIME GT 08/25/16 21:00 09/24/16 20:59 08/30/16 21:16 Benazepril HCl (Lotensin) 40 mg DAILY GT 08/25/16 15:15 09/24/16 15:14 08/31/16 09:03 Carvedilol (Coreg) 6.25 mg EVERY 12 HOURS GT 08/26/16 21:00 09/25/16 20:59 08/31/16 09:05 Clonazepam (KlonoPIN) 1 mg Q6H PRN GT For Anxiety 08/25/16 17:15 09/01/16 17:14 Clonidine HCl (Catapres) 0.1 mg Q4H PRN ORAL SBP>160 08/25/16 15:15 09/24/16 15:14 08/30/16 09:09 Dextrose (Dextrose 50%) STAT PRN IV Hypoglycemia 08/25/16 20:00 09/24/16 19:59 Epoetin Mau (Procrit (for non ESRD use)) 6,000 units MON-WED-MON SUBQ 08/26/16 21:00 09/25/16 20:59 08/26/16 21:37 Fenofibrate (Tricor) 54 mg DAILY ORAL 08/26/16 09:00 09/25/16 08:59 08/31/16 09:07 Ferrous Sulfate (Feosol) 300 mg THREE TIMES A DAY GT 08/25/16 18:00 09/24/16 17:59 08/31/16 09:03 Heparin Sodium (Porcine) (Heparin 5000 units/ml) 5,000 units EVERY 12 HOURS SUBQ 08/25/16 09:00 09/24/16 08:59 08/31/16 09:10 Insulin Aspart (NovoLOG) Q6HR SUBQ 08/25/16 18:00 09/24/16 17:59 08/31/16 05:32 Magnesium Hydroxide (Mom) 30 ml DAILYPRN PRN ORAL Constipation 08/25/16 17:15 09/24/16 17:14 Meropenem/Sodium Chloride (Merrem/Sodium Chloride) 110 ml @ 220 mls/hr Q8HR IVPB 08/25/16 12:00 09/07/16 23:59 08/31/16 05:32 Morphine Sulfate (Morphine Sulfate) 2 mg Q4H PRN IVP Severe Pain (Pain Scale 7-10) 08/25/16 17:42 09/01/16 04:59 08/29/16 23:08 Multivitamins (Multivitamins) 1 tab DAILY ORAL 08/26/16 09:00 09/25/16 08:59 08/31/16 09:04 Nitroglycerin (Ntg) 0.4 mg Q5MIN X 3 DOSES PRN SL Prn Chest Pain 08/25/16 01:00 09/24/16 00:59 Olanzapine (ZyPREXA) 5 mg DAILY ORAL 08/26/16 09:00 09/25/16 08:59 08/31/16 09:08 Ondansetron HCl (Zofran) 4 mg Q6H PRN IVP Nausea & Vomiting 08/25/16 02:00 09/24/16 01:59 Polyethylene Glycol (Miralax) 17 gm DAILYPRN PRN ORAL Constipation 08/25/16 20:00 09/24/16 19:59 Temazepam 15 mg 15 mg HSPRN PRN ORAL Insomnia 08/25/16 20:00 09/01/16 19:59 Tramadol HCl (Ultram) 50 mg Q6H PRN ORAL Moderate Pain (Pain Scale 4-6) 08/25/16 17:15 09/01/16 17:14 08/25/16 20:44 Valproic Acid (Depakene) 250 mg TID GT 08/25/16 18:00 09/24/16 17:59 08/31/16 09:04 Allergies: Coded Allergies: ASPIRIN (Unverified Allergy, Unknown, 08/23/16) NIACIN (Unverified Allergy, Unknown, 08/23/16) PENICILLINS (Verified Allergy, Unknown, 12/18/08) ROS Limited/Unobtainable: Yes Subjective 71 YO F admitted with altered mental status; now UTI. S/P borja change with resolution of obstruction. Cover for Int Med-Dr Hawkins. Objective Last Vital Signs Date Time Temp Pulse Resp B/P Pulse Ox O2 Delivery O2 Flow Rate FiO2 08/31/16 09:05 98 174/112 08/31/16 07:39 18 Room Air 08/31/16 07:36 97.5 96 08/30/16 09:06 21 08/23/16 19:47 2.0 Laboratory Tests Test 08/31/16 05:10 White Blood Count 15.1 K/UL (4.8-10.8) H Red Blood Count 3.65 M/UL (4.20-5.40) L Hemoglobin 10.8 G/DL (12.0-16.0) L Hematocrit 33.9 % (37.0-47.0) L Mean Corpuscular Volume 93 FL (80-99) Mean Corpuscular Hemoglobin 29.5 PG (27.0-31.0) Mean Corpuscular Hemoglobin Concent 31.8 G/DL (32.0-36.0) L Red Cell Distribution Width 15.8 % (11.6-14.8) H Platelet Count 226 K/UL (150-450) Mean Platelet Volume 8.4 FL (6.5-10.1) Neutrophils (%) (Auto) 76.2 % (45.0-75.0) H Lymphocytes (%) (Auto) 13.3 % (20.0-45.0) L Monocytes (%) (Auto) 6.6 % (1.0-10.0) Eosinophils (%) (Auto) 3.0 % (0.0-3.0) Basophils (%) (Auto) 0.9 % (0.0-2.0) Sodium Level 150 mEQ/L (135-145) H Potassium Level 4.1 mEQ/L (3.4-4.9) Chloride Level 108 mEQ/L (98-107) H Carbon Dioxide Level 29 mEQ/L (20-30) Anion Gap 13 (5-15) Blood Urea Nitrogen 53 mg/dL (7-23) H Creatinine 1.0 mg/dL (0.5-0.9) H Estimat Glomerular Filtration Rate 55.0 mL/min (>60) Glucose Level 321 mg/dL (74-106) H Calcium Level 9.6 mg/dL (8.6-10.2) Microbiology Date/Time Source Procedure Growth Status 08/29/16 08:03 Urine,Clean Catch Urine Culture - Preliminary Resulted Intake and Output 08/30/16 08/31/16 18:59 06:59 Intake Total 1324 ml 1044 ml Output Total 850 ml Balance 474 ml 1044 ml Free Water 500 ml 250 ml IV Total 110 ml 110 ml Tube Feeding 714 ml 684 ml Output Urine Total 850 ml Objective General Appearance: WD/WN, no apparent distress, alert EENT: PERRL/EOMI, normal ENT inspection Neck: non-tender, normal alignment, supple Cardiovascular: normal peripheral pulses, normal rate, regular rhythm, no gallop/murmur, no JVD Respiratory/Chest: chest wall non-tender, lungs clear, normal breath sounds, no respiratory distress, no accessory muscle use Abdomen: normal bowel sounds, non tender, soft, no organomegaly, no mass Extremities: normal range of motion, non-tender 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 Cont meropenem per ID (7) Altered mental status (8) Leukocytosis Assessment & Plan: Improving; S/P borja change. See ID note. Repeat Urine culture (9) Diabetes mellitus type II, uncontrolled Assessment & Plan: Continue novolog sliding scale. (10) Renal failure (11) HTN (hypertension) Assessment & Plan: Uncontrolled. Increase coreg. Cont lotesnin (12) Uropathy, obstructive Assessment & Plan: Replace borja cath. Repeat urine culture. (13) Hypernatremia Assessment & Plan: Start 1/2 NS. See nephrology note. Status: stable Assessment/Plan Discharge planning: [facility] nursing [facility] 1-2 days. BRAD ABREU Aug 31, 2016 11:42
--- NOTE | 2016-08-31 15:01 | Pulmonology Progress Note ---
Assessment/Plan Problems: (1) Sepsis (2) ATN (acute tubular necrosis) (3) HTN (hypertension) (4) CVA (cerebral vascular accident) (5) Feeding by G-tube (6) Diabetes Assessment/Plan lees culture continue antibiotics check cbc/ bmp daily abx as per ID f.u renal parameters. dvt prophylaxis Subjective ROS Limited/Unobtainable: No Allergies: Coded Allergies: ASPIRIN (Unverified Allergy, Unknown, 08/23/16) NIACIN (Unverified Allergy, Unknown, 08/23/16) PENICILLINS (Verified Allergy, Unknown, 12/18/08) Objective Last 24 Hour Vital Signs Date Time Temp Pulse Resp B/P Pulse Ox O2 Delivery O2 Flow Rate FiO2 08/31/16 12:00 97.0 94 20 178/88 97 Room Air 08/31/16 10:15 94 18 174/88 95 Room Air 08/31/16 09:05 98 174/112 08/31/16 09:03 174/112 08/31/16 07:39 98 18 Room Air 08/31/16 07:36 97.5 100 20 174/112 96 Room Air 08/31/16 04:00 97.2 100 20 151/64 90 Room Air 08/31/16 00:00 97.5 80 20 107/56 96 Room Air 08/30/16 21:16 98 156/88 08/30/16 20:00 99.5 98 20 156/88 95 Room Air 08/30/16 19:11 101 18 Room Air 08/30/16 16:06 98.2 97 20 156/79 96 Room Air Intake and Output 08/30/16 08/31/16 18:59 06:59 Intake Total 1324 ml 1044 ml Output Total 850 ml Balance 474 ml 1044 ml Free Water 500 ml 250 ml IV Total 110 ml 110 ml Tube Feeding 714 ml 684 ml Output Urine Total 850 ml Objective General Appearance: WD/WN Lines, tubes and drains: peripheral, PICC, gtube HEENT: normocephalic, anicteric Neck: non-tender, supple Respiratory/Chest: chest wall non-tender, lungs clear Breasts: no masses Cardiovascular/Chest: normal rate, regular rhythm Abdomen: normal bowel sounds, soft, PEG in place Genitourinary/Rectal: normal genital exam Skin Exam: normal pigmentation Microbiology Date/Time Source Procedure Growth Status 08/29/16 08:03 Urine,Clean Catch Urine Culture - Preliminary Resulted Laboratory Tests 08/31/16 05:10: White Blood Count 15.1H, Red Blood Count 3.65L, Hemoglobin 10.8L, Hematocrit 33.9L, Mean Corpuscular Volume 93, Mean Corpuscular Hemoglobin 29.5, Mean Corpuscular Hemoglobin Concent 31.8L, Red Cell Distribution Width 15.8H, Platelet Count 226, Mean Platelet Volume 8.4, Neutrophils (%) (Auto) 76.2H, Lymphocytes (%) (Auto) 13.3L, Monocytes (%) (Auto) 6.6, Eosinophils (%) (Auto) 3.0, Basophils (%) (Auto) 0.9, Sodium Level 150H, Potassium Level 4.1, Chloride Level 108H, Carbon Dioxide Level 29, Anion Gap 13, Blood Urea Nitrogen 53H, Creatinine 1.0H, Estimat Glomerular Filtration Rate 55.0, Glucose Level 321H, Calcium Level 9.6 Current Medications Medications (Trade) Dose Ordered Sig/Nicholas Route PRN Reason Start Time Stop Time Status Last Admin Dose Admin Acetaminophen (Tylenol) 500 mg Q6H PRN ORAL Mild Pain/Temp > 100.5 08/25/16 17:15 09/24/16 17:14 Atorvastatin Calcium (Lipitor) 40 mg BEDTIME GT 08/25/16 21:00 09/24/16 20:59 08/30/16 21:16 Benazepril HCl (Lotensin) 40 mg DAILY GT 08/25/16 15:15 09/24/16 15:14 08/31/16 09:03 Carvedilol 6.25 mg 6.25 mg EVERY 12 HOURS GT 08/26/16 21:00 09/25/16 20:59 08/31/16 09:05 Clonazepam (KlonoPIN) 1 mg Q6H PRN GT For Anxiety 08/25/16 17:15 09/01/16 17:14 Clonidine HCl (Catapres) 0.1 mg Q4H PRN ORAL SBP>160 08/25/16 15:15 09/24/16 15:14 08/30/16 09:09 Dextrose (Dextrose 50%) STAT PRN IV Hypoglycemia 08/25/16 20:00 09/24/16 19:59 Epoetin Mau (Procrit (for non ESRD use)) 6,000 units MON-MON-MON SUBQ 08/26/16 21:00 09/25/16 20:59 08/26/16 21:37 Fenofibrate (Tricor) 54 mg DAILY ORAL 08/26/16 09:00 09/25/16 08:59 08/31/16 09:07 Ferrous Sulfate (Feosol) 300 mg THREE TIMES A DAY GT 08/25/16 18:00 09/24/16 17:59 08/31/16 12:32 Heparin Sodium (Porcine) (Heparin 5000 units/ml) 5,000 units EVERY 12 HOURS SUBQ 08/25/16 09:00 09/24/16 08:59 08/31/16 09:10 Insulin Aspart (NovoLOG) Q6HR SUBQ 08/25/16 18:00 09/24/16 17:59 08/31/16 12:28 Magnesium Hydroxide (Mom) 30 ml DAILYPRN PRN ORAL Constipation 08/25/16 17:15 09/24/16 17:14 Meropenem/Sodium Chloride (Merrem/Sodium Chloride) 110 ml @ 220 mls/hr Q8HR IVPB 08/25/16 12:00 09/07/16 23:59 08/31/16 14:21 Morphine Sulfate (Morphine Sulfate) 2 mg Q4H PRN IVP Severe Pain (Pain Scale 7-10) 08/25/16 17:42 09/01/16 04:59 08/29/16 23:08 Multivitamins (Multivitamins) 1 tab DAILY ORAL 08/26/16 09:00 09/25/16 08:59 08/31/16 09:04 Nitroglycerin (Ntg) 0.4 mg Q5MIN X 3 DOSES PRN SL Prn Chest Pain 08/25/16 01:00 09/24/16 00:59 Olanzapine (ZyPREXA) 5 mg DAILY ORAL 08/26/16 09:00 09/25/16 08:59 08/31/16 09:08 Ondansetron HCl (Zofran) 4 mg Q6H PRN IVP Nausea & Vomiting 08/25/16 02:00 09/24/16 01:59 Polyethylene Glycol (Miralax) 17 gm DAILYPRN PRN ORAL Constipation 08/25/16 20:00 09/24/16 19:59 Sodium Chloride (0.45% NS 1000ml) 1,000 ml @ 50 mls/hr Q20H IV 08/31/16 12:00 09/30/16 11:59 08/31/16 12:30 Temazepam 15 mg 15 mg HSPRN PRN ORAL Insomnia 08/25/16 20:00 09/01/16 19:59 Tramadol HCl (Ultram) 50 mg Q6H PRN ORAL Moderate Pain (Pain Scale 4-6) 08/25/16 17:15 09/01/16 17:14 08/25/16 20:44 Valproic Acid (Depakene) 250 mg TID GT 08/25/16 18:00 09/24/16 17:59 08/31/16 12:33 MAGDA SAUL Aug 31, 2016 15:01
--- NOTE | 2016-08-31 20:04 | Infectious Diseases Prog Note ---
Assessment/Plan Assessment/Plan A: The patient is a 71-year-old female with Leukocytosis due to Urine.Obst, improving after change of [facility] CT of Chest / A/P : no abscess , pt has dilation of bladder and Bl [place] ( probable dahlia to malfunction Foely Cath ) Sepsis ALOC due to sepsis CT of the head : ? maxillary sinus disease. ( not clinically significance ) UTI Ucx ESBL Kleb Ultrasound of the kidney, negative for hydronephrosis Diabetes Acute renal insufficiency , SP Hypertension CAD Schizoaffective disorder and bipolar disorder Dysphagia status post G-tube placement P: continue the patient on Merrem d# / , upon DC will change to Invanz 1 gm daily to complete the course ( 08/25 SP vancomycin and cefepime d# 2 ) Monitor CBC Monitor BMP. Monitor LFT Subjective Constitutional: Denies: anorexia, chills, drenching sweats, fatigue, fever, no symptoms, other Allergies: Coded Allergies: ASPIRIN (Unverified Allergy, Unknown, 08/23/16) NIACIN (Unverified Allergy, Unknown, 08/23/16) PENICILLINS (Verified Allergy, Unknown, 12/18/08) Objective Vital Signs Last 24 Hour Vital Signs Date Time Temp Pulse Resp B/P Pulse Ox O2 Delivery O2 Flow Rate FiO2 08/31/16 16:00 97.9 92 20 185/97 98 Room Air 08/31/16 12:00 97.0 94 20 178/88 97 Room Air 08/31/16 10:15 94 18 174/88 95 Room Air 08/31/16 09:05 98 174/112 08/31/16 09:03 174/112 08/31/16 07:39 98 18 Room Air 08/31/16 07:36 97.5 100 20 174/112 96 Room Air 08/31/16 04:00 97.2 100 20 151/64 90 Room Air 08/31/16 00:00 97.5 80 20 107/56 96 Room Air 08/30/16 21:16 98 156/88 Height (Feet): 5 Height (Inches): 3.00 Weight (Pounds): 153 HEENT: anicteric Respiratory/Chest: lungs clear Cardiovascular: regular rhythm Abdomen: no organomegaly Microbiology Date/Time Source Procedure Growth Status 08/29/16 08:03 Urine,Clean Catch Urine Culture - Preliminary Resulted Laboratory Tests Test 08/31/16 05:10 White Blood Count 15.1 K/UL (4.8-10.8) H Red Blood Count 3.65 M/UL (4.20-5.40) L Hemoglobin 10.8 G/DL (12.0-16.0) L Hematocrit 33.9 % (37.0-47.0) L Mean Corpuscular Volume 93 FL (80-99) Mean Corpuscular Hemoglobin 29.5 PG (27.0-31.0) Mean Corpuscular Hemoglobin Concent 31.8 G/DL (32.0-36.0) L Red Cell Distribution Width 15.8 % (11.6-14.8) H Platelet Count 226 K/UL (150-450) Mean Platelet Volume 8.4 FL (6.5-10.1) Neutrophils (%) (Auto) 76.2 % (45.0-75.0) H Lymphocytes (%) (Auto) 13.3 % (20.0-45.0) L Monocytes (%) (Auto) 6.6 % (1.0-10.0) Eosinophils (%) (Auto) 3.0 % (0.0-3.0) Basophils (%) (Auto) 0.9 % (0.0-2.0) Sodium Level 150 mEQ/L (135-145) H Potassium Level 4.1 mEQ/L (3.4-4.9) Chloride Level 108 mEQ/L (98-107) H Carbon Dioxide Level 29 mEQ/L (20-30) Anion Gap 13 (5-15) Blood Urea Nitrogen 53 mg/dL (7-23) H Creatinine 1.0 mg/dL (0.5-0.9) H Estimat Glomerular Filtration Rate 55.0 mL/min (>60) Glucose Level 321 mg/dL (74-106) H Calcium Level 9.6 mg/dL (8.6-10.2) Current Medications Medications (Trade) Dose Ordered Sig/Nicholas Route PRN Reason Start Time Stop Time Status Last Admin Dose Admin Acetaminophen (Tylenol) 500 mg Q6H PRN ORAL Mild Pain/Temp > 100.5 08/25/16 17:15 09/24/16 17:14 Atorvastatin Calcium (Lipitor) 40 mg BEDTIME GT 08/25/16 21:00 09/24/16 20:59 08/30/16 21:16 Benazepril HCl (Lotensin) 40 mg DAILY GT 08/25/16 15:15 09/24/16 15:14 08/31/16 09:03 Carvedilol (Coreg) 6.25 mg EVERY 12 HOURS GT 08/31/16 21:00 09/30/16 20:59 Clonazepam (KlonoPIN) 1 mg Q6H PRN GT For Anxiety 08/25/16 17:15 09/01/16 17:14 08/31/16 18:36 Clonidine HCl (Catapres) 0.1 mg Q4H PRN ORAL SBP>160 08/25/16 15:15 09/24/16 15:14 08/30/16 09:09 Dextrose (Dextrose 50%) STAT PRN IV Hypoglycemia 08/25/16 20:00 09/24/16 19:59 Epoetin Mau (Procrit (for non ESRD use)) 4,500 units MON-MON-MON SUBQ 08/31/16 21:00 09/30/16 20:59 Fenofibrate (Tricor) 54 mg DAILY ORAL 08/26/16 09:00 09/25/16 08:59 08/31/16 09:07 Ferrous Sulfate (Feosol) 300 mg THREE TIMES A DAY GT 08/25/16 18:00 09/24/16 17:59 08/31/16 18:34 Heparin Sodium (Porcine) (Heparin 5000 units/ml) 5,000 units EVERY 12 HOURS SUBQ 08/25/16 09:00 09/24/16 08:59 08/31/16 09:10 Insulin Aspart (NovoLOG) Q6HR SUBQ 08/25/16 18:00 09/24/16 17:59 08/31/16 18:38 Magnesium Hydroxide (Mom) 30 ml DAILYPRN PRN ORAL Constipation 08/25/16 17:15 09/24/16 17:14 Meropenem/Sodium Chloride (Merrem/Sodium Chloride) 110 ml @ 220 mls/hr Q8HR IVPB 08/25/16 12:00 09/07/16 23:59 08/31/16 14:21 Morphine Sulfate 2 mg 2 mg Q4H PRN IVP Severe Pain (Pain Scale 7-10) 08/25/16 17:42 09/01/16 04:59 08/29/16 23:08 Multivitamins (Multivitamins) 1 tab DAILY ORAL 08/26/16 09:00 09/25/16 08:59 08/31/16 09:04 Nitroglycerin (Ntg) 0.4 mg Q5MIN X 3 DOSES PRN SL Prn Chest Pain 08/25/16 01:00 09/24/16 00:59 Olanzapine (ZyPREXA) 5 mg DAILY ORAL 08/26/16 09:00 09/25/16 08:59 08/31/16 09:08 Ondansetron HCl (Zofran) 4 mg Q6H PRN IVP Nausea & Vomiting 08/25/16 02:00 09/24/16 01:59 Polyethylene Glycol (Miralax) 17 gm DAILYPRN PRN ORAL Constipation 08/25/16 20:00 09/24/16 19:59 Sodium Chloride (0.45% NS 1000ml) 1,000 ml @ 50 mls/hr Q20H IV 08/31/16 12:00 09/30/16 11:59 08/31/16 12:30 Temazepam 15 mg 15 mg HSPRN PRN ORAL Insomnia 08/25/16 20:00 09/01/16 19:59 Tramadol HCl (Ultram) 50 mg Q6H PRN ORAL Moderate Pain (Pain Scale 4-6) 08/25/16 17:15 09/01/16 17:14 08/25/16 20:44 Valproic Acid (Depakene) 250 mg TID GT 08/25/16 18:00 09/24/16 17:59 08/31/16 18:35 JACKY DAVENPORT M.D. Aug 31, 2016 20:04
[2016-08-31] MEDS ORDERED: Epogen (for non ESRD use) SUBQ SCH (21:00)
--- NOTE | 2016-08-31 21:03 | Nephrology Progress Note ---
Assessment/Plan Problem List: (1) Sepsis (2) Altered level of consciousness (3) Dysphagia (4) UTI (urinary tract infection) (5) Leukocytosis (6) HUDSON (acute kidney injury) Plan Monitor lytes, correct as needed Monitor BUN/cr Monitor intake and output Abx per ID Monitor neuro status BP & BS control AM labs Subjective ROS Limited/Unobtainable: Yes Subjective In no distress, disoriented Objective Objective Last 24 Hour Vital Signs Date Time Temp Pulse Resp B/P Pulse Ox O2 Delivery O2 Flow Rate FiO2 08/31/16 20:00 97.9 88 14 139/62 97 Room Air 08/31/16 16:00 97.9 92 20 185/97 98 Room Air 08/31/16 12:00 97.0 94 20 178/88 97 Room Air 08/31/16 10:15 94 18 174/88 95 Room Air 08/31/16 09:05 98 174/112 08/31/16 09:03 174/112 08/31/16 07:39 98 18 Room Air 08/31/16 07:36 97.5 100 20 174/112 96 Room Air 08/31/16 04:00 97.2 100 20 151/64 90 Room Air 08/31/16 00:00 97.5 80 20 107/56 96 Room Air 08/30/16 21:16 98 156/88 Intake and Output 08/30/16 08/31/16 19:00 07:00 Intake Total 1210 ml 1044 ml Output Total 850 ml Balance 360 ml 1044 ml Free Water 500 ml 250 ml IV Total 110 ml 110 ml Tube Feeding 600 ml 684 ml Output Urine Total 850 ml Laboratory Tests 08/31/16 05:10: White Blood Count 15.1H, Red Blood Count 3.65L, Hemoglobin 10.8L, Hematocrit 33.9L, Mean Corpuscular Volume 93, Mean Corpuscular Hemoglobin 29.5, Mean Corpuscular Hemoglobin Concent 31.8L, Red Cell Distribution Width 15.8H, Platelet Count 226, Mean Platelet Volume 8.4, Neutrophils (%) (Auto) 76.2H, Lymphocytes (%) (Auto) 13.3L, Monocytes (%) (Auto) 6.6, Eosinophils (%) (Auto) 3.0, Basophils (%) (Auto) 0.9, Sodium Level 150H, Potassium Level 4.1, Chloride Level 108H, Carbon Dioxide Level 29, Anion Gap 13, Blood Urea Nitrogen 53H, Creatinine 1.0H, Estimat Glomerular Filtration Rate 55.0, Glucose Level 321H, Calcium Level 9.6 Height (Feet): 5 Height (Inches): 3.00 Weight (Pounds): 153 General Appearance: no apparent distress, confused EENT: normal ENT inspection Neck: normal alignment, supple Cardiovascular: normal rate, regular rhythm, no JVD Respiratory/Chest: decreased breath sounds Abdomen: no organomegaly, other - PEG Tube Genitourinary/Rectal: other - borja catheter Extremities: no calf tenderness Neurologic: disoriented Sofy Renteria N.P. Aug 31, 2016 21:03
[2016-08-31] MEDS: Carvedilol 6.25mg Tab GT SCH (23:22)
[2016-09-01 04:00] VITALS: BP 147/78
[2016-09-01] MEDS: Meropenem 1 GM in NS 110 ML IVPB SCH ×2 (06:10→14:23)
[2016-09-01] MEDS: NovoLOG Insulin Flexpen SUBQ SCH ×2 (06:15→12:17)
[2016-09-01 07:21] LABS: BASOPHILS % (AUTO) 0.8 % (0.0-2.0); EOSINOPHILS % (AUTO) 2.8 % (0.0-3.0); LYMPHOCYTES % (AUTO) 11.1 % (20.0-45.0); MEAN CORPUSCULAR HEMOGLOBIN 29.5 PG (27.0-31.0); MEAN CORPUSCULAR HGB CONC 32.1 G/DL (32.0-36.0); MEAN CORPUSCULAR VOLUME 92 FL (80-99); MEAN PLATELET VOLUME 8.7 FL (6.5-10.1); MONOCYTES % (AUTO) 5.8 % (1.0-10.0); NEUTROPHILS % (AUTO) 79.5 % (45.0-75.0); PLATELET COUNT 229 K/UL (150-450); RED BLOOD COUNT 3.36 M/UL (4.20-5.40); RED CELL DISTRIBUTION WIDTH 15.5 % (11.6-14.8); WHITE BLOOD COUNT 15.6 K/UL (4.8-10.8)
[2016-09-01 07:33] LABS: ANION GAP 15 (5-15); CALCIUM 9.5 mg/dL (8.6-10.2); CARBON DIOXIDE 27 mEQ/L (20-30); CHLORIDE 107 mEQ/L (98-107); CREATININE 0.9 mg/dL (0.5-0.9); GLOMERULAR FILTRATION RATE > 60 mL/min (>60); HEMOLYSIS 8; POTASSIUM 4.4 mEQ/L (3.4-4.9); SODIUM 149 mEQ/L (135-145)
[2016-09-01 07:44] VITALS: BP 156/102
[2016-09-01] MEDS: Carvedilol 6.25mg Tab GT SCH (08:32)
[2016-09-01] MEDS: Valproic Acid 250mg/5ml Liquid GT SCH ×2 (08:32→12:21)
[2016-09-01] MEDS: Ferrous Sulfate 300 MG/5 ML UDC GT SCH ×2 (08:32→12:21)
[2016-09-01] MEDS: Heparin 5000 units/ml inj SUBQ SCH (08:34)
[2016-09-01] MEDS ORDERED: CATAPRES0.1 MG ORAL (11:23)
[2016-09-01] MEDS ORDERED: INVANZ1 GM IVPB (11:23)
[2016-09-01 12:00] VITALS: BP 171/88
--- NOTE | 2016-09-01 12:55 | Infectious Diseases Prog Note ---
Assessment/Plan Assessment/Plan A: The patient is a 71-year-old female with Leukocytosis due to Urine.Obst, improving after change of [facility] CT of Chest / A/P : no abscess , pt has dilation of bladder and Bl [place] ( probable dahlia to malfunction Foely Cath ) Sepsis ALOC due to sepsis CT of the head : ? maxillary sinus disease. ( not clinically significance ) UTI Ucx ESBL Kleb Ultrasound of the kidney, negative for hydronephrosis Diabetes Acute renal insufficiency , SP Hypertension CAD Schizoaffective disorder and bipolar disorder Dysphagia status post G-tube placement P: continue the patient on Merrem d# 8 / 14 , upon DC will change to Invanz 1 gm daily to complete the course ( 08/25 SP vancomycin and cefepime d# 2 ) Monitor CBC Monitor BMP. Monitor LFT Subjective Constitutional: Denies: anorexia, chills, drenching sweats, fatigue, fever, no symptoms, other Allergies: Coded Allergies: ASPIRIN (Unverified Allergy, Unknown, 08/23/16) NIACIN (Unverified Allergy, Unknown, 08/23/16) PENICILLINS (Verified Allergy, Unknown, 12/18/08) Objective Vital Signs Last 24 Hour Vital Signs Date Time Temp Pulse Resp B/P Pulse Ox O2 Delivery O2 Flow Rate FiO2 09/01/16 09:12 93 16 Room Air 21 09/01/16 08:32 96 156/102 09/01/16 08:32 156/102 09/01/16 07:44 97.5 96 20 156/102 97 Room Air 09/01/16 04:00 97.7 93 15 147/78 96 Room Air 08/31/16 23:58 97.9 94 15 150/68 96 Room Air 08/31/16 23:22 88 139/62 08/31/16 21:00 96 14 Room Air 21 08/31/16 20:00 97.9 88 14 139/62 97 Room Air 08/31/16 16:00 97.9 92 20 185/97 98 Room Air Height (Feet): 5 Height (Inches): 3.00 Weight (Pounds): 153 HEENT: atraumatic Respiratory/Chest: normal breath sounds Cardiovascular: regular rhythm Abdomen: non distended Laboratory Tests Test 09/01/16 06:10 White Blood Count 15.6 K/UL (4.8-10.8) H Red Blood Count 3.36 M/UL (4.20-5.40) L Hemoglobin 9.9 G/DL (12.0-16.0) L Hematocrit 30.9 % (37.0-47.0) L Mean Corpuscular Volume 92 FL (80-99) Mean Corpuscular Hemoglobin 29.5 PG (27.0-31.0) Mean Corpuscular Hemoglobin Concent 32.1 G/DL (32.0-36.0) Red Cell Distribution Width 15.5 % (11.6-14.8) H Platelet Count 229 K/UL (150-450) Mean Platelet Volume 8.7 FL (6.5-10.1) Neutrophils (%) (Auto) 79.5 % (45.0-75.0) H Lymphocytes (%) (Auto) 11.1 % (20.0-45.0) L Monocytes (%) (Auto) 5.8 % (1.0-10.0) Eosinophils (%) (Auto) 2.8 % (0.0-3.0) Basophils (%) (Auto) 0.8 % (0.0-2.0) Sodium Level 149 mEQ/L (135-145) H Potassium Level 4.4 mEQ/L (3.4-4.9) Chloride Level 107 mEQ/L (98-107) Carbon Dioxide Level 27 mEQ/L (20-30) Anion Gap 15 (5-15) Blood Urea Nitrogen 49 mg/dL (7-23) H Creatinine 0.9 mg/dL (0.5-0.9) Estimat Glomerular Filtration Rate > 60 mL/min (>60) Glucose Level 302 mg/dL (74-106) H Calcium Level 9.5 mg/dL (8.6-10.2) Current Medications Medications (Trade) Dose Ordered Sig/Nicholas Route PRN Reason Start Time Stop Time Status Last Admin Dose Admin Acetaminophen (Tylenol) 500 mg Q6H PRN ORAL Mild Pain/Temp > 100.5 08/25/16 17:15 09/24/16 17:14 Atorvastatin Calcium (Lipitor) 40 mg BEDTIME GT 08/25/16 21:00 09/24/16 20:59 08/31/16 23:22 Benazepril HCl (Lotensin) 40 mg DAILY GT 08/25/16 15:15 09/24/16 15:14 09/01/16 08:32 Carvedilol (Coreg) 6.25 mg EVERY 12 HOURS GT 08/31/16 21:00 09/30/16 20:59 09/01/16 08:32 Clonazepam (KlonoPIN) 1 mg Q6H PRN GT For Anxiety 08/25/16 17:15 09/01/16 17:14 08/31/16 18:36 Clonidine HCl (Catapres) 0.1 mg Q4H PRN ORAL SBP>160 08/25/16 15:15 09/24/16 15:14 08/30/16 09:09 Dextrose (Dextrose 50%) STAT PRN IV Hypoglycemia 08/25/16 20:00 09/24/16 19:59 Epoetin Mau (Procrit (for non ESRD use)) 4,500 units MON-MON-MON SUBQ 08/31/16 21:00 09/30/16 20:59 08/31/16 23:23 Fenofibrate (Tricor) 54 mg DAILY ORAL 08/26/16 09:00 09/25/16 08:59 09/01/16 08:32 Ferrous Sulfate (Feosol) 300 mg THREE TIMES A DAY GT 08/25/16 18:00 09/24/16 17:59 09/01/16 12:21 Heparin Sodium (Porcine) (Heparin 5000 units/ml) 5,000 units EVERY 12 HOURS SUBQ 08/25/16 09:00 09/24/16 08:59 09/01/16 08:34 Insulin Aspart (NovoLOG) Q6HR SUBQ 08/25/16 18:00 09/24/16 17:59 09/01/16 12:17 Magnesium Hydroxide (Mom) 30 ml DAILYPRN PRN ORAL Constipation 08/25/16 17:15 09/24/16 17:14 Meropenem/Sodium Chloride (Merrem/Sodium Chloride) 110 ml @ 220 mls/hr Q8HR IVPB 08/25/16 12:00 09/07/16 23:59 09/01/16 06:10 Multivitamins (Multivitamins) 1 tab DAILY ORAL 08/26/16 09:00 09/25/16 08:59 09/01/16 08:32 Nitroglycerin (Ntg) 0.4 mg Q5MIN X 3 DOSES PRN SL Prn Chest Pain 08/25/16 01:00 09/24/16 00:59 Olanzapine (ZyPREXA) 5 mg DAILY ORAL 08/26/16 09:00 09/25/16 08:59 09/01/16 08:32 Ondansetron HCl (Zofran) 4 mg Q6H PRN IVP Nausea & Vomiting 08/25/16 02:00 09/24/16 01:59 Polyethylene Glycol (Miralax) 17 gm DAILYPRN PRN ORAL Constipation 08/25/16 20:00 09/24/16 19:59 Sodium Chloride (0.45% NS 1000ml) 1,000 ml @ 50 mls/hr Q20H IV 08/31/16 12:00 09/30/16 11:59 09/01/16 08:32 Temazepam 15 mg 15 mg HSPRN PRN ORAL Insomnia 08/25/16 20:00 09/01/16 19:59 Tramadol HCl (Ultram) 50 mg Q6H PRN ORAL Moderate Pain (Pain Scale 4-6) 08/25/16 17:15 09/01/16 17:14 08/25/16 20:44 Valproic Acid 250 mg 250 mg TID GT 08/25/16 18:00 09/24/16 17:59 09/01/16 12:21 JACKY DAVENPORT M.D. Sep 01, 2016 12:55
--- NOTE | 2016-09-01 14:38 | Pulmonology Progress Note ---
Assessment/Plan Problems: (1) Sepsis (2) ATN (acute tubular necrosis) (3) HTN (hypertension) (4) CVA (cerebral vascular accident) (5) Feeding by G-tube (6) Diabetes Assessment/Plan wbc still high. slightly lower conitnue invanz toleraing feeding check labs aspiration precaution dvt prophylaxis dc back to senior care with IV antibiotics Subjective ROS Limited/Unobtainable: No Interval Events: looks comfortable Allergies: Coded Allergies: ASPIRIN (Unverified Allergy, Unknown, 08/23/16) NIACIN (Unverified Allergy, Unknown, 08/23/16) PENICILLINS (Verified Allergy, Unknown, 12/18/08) Objective Last 24 Hour Vital Signs Date Time Temp Pulse Resp B/P Pulse Ox O2 Delivery O2 Flow Rate FiO2 09/01/16 14:23 171/88 09/01/16 12:00 98.1 85 20 171/88 93 Room Air 09/01/16 09:12 93 16 Room Air 21 09/01/16 08:32 96 156/102 09/01/16 08:32 156/102 09/01/16 07:44 97.5 96 20 156/102 97 Room Air 09/01/16 04:00 97.7 93 15 147/78 96 Room Air 08/31/16 23:58 97.9 94 15 150/68 96 Room Air 08/31/16 23:22 88 139/62 08/31/16 21:00 96 14 Room Air 21 08/31/16 20:00 97.9 88 14 139/62 97 Room Air 08/31/16 16:00 97.9 92 20 185/97 98 Room Air Intake and Output 08/31/16 09/01/16 19:00 07:00 Intake Total 1014 ml 1587 ml Output Total 900 ml 1100 ml Balance 114 ml 487 ml Free Water 300 ml 250 ml IV Total 200 ml 710 ml Tube Feeding 114 ml 627 ml Other 400 ml Output Urine Total 900 ml 1100 ml # Bowel Movements 1 Objective Lines, tubes and drains: peripheral, HEENT: normocephalic, atraumatic Neck: non-tender Respiratory/Chest: chest wall non-tender Cardiovascular/Chest: normal peripheral pulses Abdomen: normal bowel sounds, feeding tube, other Genitourinary/Rectal: normal genital exam Extremities: normal range of motion, non-tender Laboratory Tests 09/01/16 06:10: White Blood Count 15.6H, Red Blood Count 3.36L, Hemoglobin 9.9L, Hematocrit 30.9L, Mean Corpuscular Volume 92, Mean Corpuscular Hemoglobin 29.5, Mean Corpuscular Hemoglobin Concent 32.1, Red Cell Distribution Width 15.5H, Platelet Count 229, Mean Platelet Volume 8.7, Neutrophils (%) (Auto) 79.5H, Lymphocytes (%) (Auto) 11.1L, Monocytes (%) (Auto) 5.8, Eosinophils (%) (Auto) 2.8, Basophils (%) (Auto) 0.8, Sodium Level 149H, Potassium Level 4.4, Chloride Level 107, Carbon Dioxide Level 27, Anion Gap 15, Blood Urea Nitrogen 49H, Creatinine 0.9, Estimat Glomerular Filtration Rate > 60, Glucose Level 302H, Calcium Level 9.5 Current Medications Medications (Trade) Dose Ordered Sig/Nicholas Route PRN Reason Start Time Stop Time Status Last Admin Dose Admin Acetaminophen (Tylenol) 500 mg Q6H PRN ORAL Mild Pain/Temp > 100.5 08/25/16 17:15 09/24/16 17:14 Atorvastatin Calcium (Lipitor) 40 mg BEDTIME GT 08/25/16 21:00 09/24/16 20:59 08/31/16 23:22 Benazepril HCl (Lotensin) 40 mg DAILY GT 08/25/16 15:15 09/24/16 15:14 09/01/16 08:32 Carvedilol (Coreg) 6.25 mg EVERY 12 HOURS GT 08/31/16 21:00 09/30/16 20:59 09/01/16 08:32 Clonazepam (KlonoPIN) 1 mg Q6H PRN GT For Anxiety 08/25/16 17:15 09/01/16 17:14 08/31/16 18:36 Clonidine HCl (Catapres) 0.1 mg Q4H PRN ORAL SBP>160 08/25/16 15:15 09/24/16 15:14 09/01/16 14:23 Dextrose (Dextrose 50%) STAT PRN IV Hypoglycemia 08/25/16 20:00 09/24/16 19:59 Epoetin Mau (Procrit (for non ESRD use)) 4,500 units MON-WED-MON SUBQ 08/31/16 21:00 09/30/16 20:59 08/31/16 23:23 Fenofibrate (Tricor) 54 mg DAILY ORAL 08/26/16 09:00 09/25/16 08:59 09/01/16 08:32 Ferrous Sulfate (Feosol) 300 mg THREE TIMES A DAY GT 08/25/16 18:00 09/24/16 17:59 09/01/16 12:21 Heparin Sodium (Porcine) (Heparin 5000 units/ml) 5,000 units EVERY 12 HOURS SUBQ 08/25/16 09:00 09/24/16 08:59 09/01/16 08:34 Insulin Aspart (NovoLOG) Q6HR SUBQ 08/25/16 18:00 09/24/16 17:59 09/01/16 12:17 Magnesium Hydroxide (Mom) 30 ml DAILYPRN PRN ORAL Constipation 08/25/16 17:15 09/24/16 17:14 Meropenem/Sodium Chloride (Merrem/Sodium Chloride) 110 ml @ 220 mls/hr Q8HR IVPB 08/25/16 12:00 09/07/16 23:59 09/01/16 14:23 Multivitamins (Multivitamins) 1 tab DAILY ORAL 08/26/16 09:00 09/25/16 08:59 09/01/16 08:32 Nitroglycerin (Ntg) 0.4 mg Q5MIN X 3 DOSES PRN SL Prn Chest Pain 08/25/16 01:00 09/24/16 00:59 Olanzapine (ZyPREXA) 5 mg DAILY ORAL 08/26/16 09:00 09/25/16 08:59 09/01/16 08:32 Ondansetron HCl (Zofran) 4 mg Q6H PRN IVP Nausea & Vomiting 08/25/16 02:00 09/24/16 01:59 Polyethylene Glycol (Miralax) 17 gm DAILYPRN PRN ORAL Constipation 08/25/16 20:00 09/24/16 19:59 Sodium Chloride (0.45% NS 1000ml) 1,000 ml @ 50 mls/hr Q20H IV 08/31/16 12:00 09/30/16 11:59 09/01/16 08:32 Temazepam 15 mg 15 mg HSPRN PRN ORAL Insomnia 08/25/16 20:00 09/01/16 19:59 Tramadol HCl (Ultram) 50 mg Q6H PRN ORAL Moderate Pain (Pain Scale 4-6) 08/25/16 17:15 09/01/16 17:14 08/25/16 20:44 Valproic Acid 250 mg 250 mg TID GT 08/25/16 18:00 09/24/16 17:59 09/01/16 12:21 MAGDA SAUL Sep 01, 2016 14:38
[2016-09-01] MEDS ORDERED: Miralax 17gm pkt GT PRN (15:16)
[2016-09-01] MEDS ORDERED: Milk of Magnesia 30ml Ud GT PRN (15:18)
[2016-09-01] MEDS ORDERED: traMADol 50mg tab GT PRN (15:20)
[2016-09-01] MEDS ORDERED: Acetaminophen 650mg/20.3ml GT PRN (15:30)
[2016-09-01 16:00] VITALS: BP 146/83
[2016-09-01] MEDS ORDERED: 1/2 NS 1000ml IV ONE (16:49)
--- NOTE | 2016-09-01 17:30 | Internal Med Progress Note ---
Subjective Date of Service: Sep 01, 2016 Physician Name Fuad Abreu Attending Physician Pete Hawkins MD Allergies: Coded Allergies: ASPIRIN (Unverified Allergy, Unknown, 08/23/16) NIACIN (Unverified Allergy, Unknown, 08/23/16) PENICILLINS (Verified Allergy, Unknown, 12/18/08) ROS Limited/Unobtainable: Yes Subjective 71 YO F admitted with altered mental status; now UTI. S/P borja change with resolution of obstruction. Cover for Int Med-Dr Hawkins. Objective Last Vital Signs Date Time Temp Pulse Resp B/P Pulse Ox O2 Delivery O2 Flow Rate FiO2 09/01/16 16:00 97.5 85 20 146/83 97 Room Air 09/01/16 09:12 21 08/23/16 19:47 2.0 Laboratory Tests Test 09/01/16 06:10 White Blood Count 15.6 K/UL (4.8-10.8) H Red Blood Count 3.36 M/UL (4.20-5.40) L Hemoglobin 9.9 G/DL (12.0-16.0) L Hematocrit 30.9 % (37.0-47.0) L Mean Corpuscular Volume 92 FL (80-99) Mean Corpuscular Hemoglobin 29.5 PG (27.0-31.0) Mean Corpuscular Hemoglobin Concent 32.1 G/DL (32.0-36.0) Red Cell Distribution Width 15.5 % (11.6-14.8) H Platelet Count 229 K/UL (150-450) Mean Platelet Volume 8.7 FL (6.5-10.1) Neutrophils (%) (Auto) 79.5 % (45.0-75.0) H Lymphocytes (%) (Auto) 11.1 % (20.0-45.0) L Monocytes (%) (Auto) 5.8 % (1.0-10.0) Eosinophils (%) (Auto) 2.8 % (0.0-3.0) Basophils (%) (Auto) 0.8 % (0.0-2.0) Sodium Level 149 mEQ/L (135-145) H Potassium Level 4.4 mEQ/L (3.4-4.9) Chloride Level 107 mEQ/L (98-107) Carbon Dioxide Level 27 mEQ/L (20-30) Anion Gap 15 (5-15) Blood Urea Nitrogen 49 mg/dL (7-23) H Creatinine 0.9 mg/dL (0.5-0.9) Estimat Glomerular Filtration Rate > 60 mL/min (>60) Glucose Level 302 mg/dL (74-106) H Calcium Level 9.5 mg/dL (8.6-10.2) Intake and Output 08/31/16 09/01/16 19:00 07:00 Intake Total 1014 ml 1587 ml Output Total 900 ml 1100 ml Balance 114 ml 487 ml Free Water 300 ml 250 ml IV Total 200 ml 710 ml Tube Feeding 114 ml 627 ml Other 400 ml Output Urine Total 900 ml 1100 ml # Bowel Movements 1 Objective General Appearance: WD/WN, no apparent distress, alert EENT: PERRL/EOMI, normal ENT inspection Neck: non-tender, normal alignment, supple Cardiovascular: normal peripheral pulses, normal rate, regular rhythm, no gallop/murmur, no JVD Respiratory/Chest: chest wall non-tender, lungs clear, normal breath sounds, no respiratory distress, no accessory muscle use Abdomen: normal bowel sounds, non tender, soft, no organomegaly, no mass Extremities: normal range of motion, non-tender 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 Cont meropenem per ID (7) Altered mental status (8) Leukocytosis Assessment & Plan: Improving; S/P borja change. See ID note. Repeat Urine culture (9) Diabetes mellitus type II, uncontrolled Assessment & Plan: Continue novolog sliding scale. (10) Renal failure (11) HTN (hypertension) Assessment & Plan: Uncontrolled. Increase coreg. Cont lotesnin (12) Uropathy, obstructive Assessment & Plan: Replace borja cath. Repeat urine culture. (13) Hypernatremia Assessment & Plan: Start 1/2 NS. See nephrology note. Status: stable Assessment/Plan Discharge to [facility] today. FUAD ABREU Sep 01, 2016 17:30
[2016-09-01] MEDS ORDERED: Valproic Acid 250mg/5ml Liquid GT SCH (22:00)
[2016-09-02] MEDS ORDERED: ZyPREXA Zydis 5mg tab GT SCH (09:00)
--- NOTE | 2016-09-02 15:38 | Discharge Summary ---
Discharge Summary Hospital Course Date of Admission Aug 23, 2016 at 18:33 Date of Discharge Sep 01, 2016 at 16:50 Admitting Diagnosis AMS sepsis HPI Shelly Marcial is a 71 year old female who was admitted on Aug 23, 2016 at 18: 33 for Altered Mental Status, Sepsis Hospital Course job #[id number] Discharge Discharge Disposition Patient was discharged to SNF/Subacute Facility(03) Discharge Diagnoses: Beatrice Fry NP Sep 02, 2016 15:38
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
--- NOTE | 2016-09-06 15:24 | Diagnostic Imaging Report ---
Indications: DYSPHAGIA Technique: Patient ingested multiple substances under the supervision of speech pathology. Video fluoroscopic recording performed. Total fluoroscopy time 252 seconds. Total dose area product [id number] mGycm2 Comparison: none Findings: Initial swallow of thin liquid barium resulted in immediate aspiration, which resulted in coughing. Ingestion of nectar thick liquid barium demonstrated early pooling, supraglottic for penetration without aspiration. Ingestion of barium pur?e and honey thick liquid barium demonstrate slight delay in initiation of deglutition, slight early pooling, good clearing of contrast bolus with swallowing, no penetration or aspiration. Impression: Positive for aspiration of thin liquid barium, penetration of nectar thick liquid barium. Please refer to speech pathology report for more detailed analysis
== END 2016-09-01 16:50 | DRG 871 ==
LOC: EDBD 17:36 → EMR 18:32 → 2E 18:33 → EDBEDREQSVC 19:41 → EDBEDREQ 20:21 → 2E 23:43 → 4E 08-25 01:04
DX: A41.9 Sepsis, unspecified organism (principal); N17.0 Acute kidney failure with tubular necrosis; G92 Toxic encephalopathy; L89.159 Pressure ulcer of sacral region, unspecified stage; E11.9 Type 2 diabetes mellitus without complications; I12.9 Hypertensive chronic kidney disease with stage 1 through stage 4 chronic kidney disease, or unspecified chronic kidney disease; J32.0 Chronic maxillary sinusitis; N39.0 Urinary tract infection, site not specified; Z43.1 Encounter for attention to gastrostomy; N13.9 Obstructive and reflux uropathy, unspecified; I25.10 Atherosclerotic heart disease of native coronary artery without angina pectoris; Z88.6 Allergy status to analgesic agent; Z88.0 Allergy status to penicillin; Z88.8 Allergy status to other drugs, medicaments and biological substances; N18.9 Chronic kidney disease, unspecified; F25.0 Schizoaffective disorder, bipolar type; Z79.4 Long term (current) use of insulin; E78.00 Pure hypercholesterolemia, unspecified; E87.6 Hypokalemia; B96.1 Klebsiella pneumoniae [K. pneumoniae] as the cause of diseases classified elsewhere; Z16.12 Extended spectrum beta lactamase (ESBL) resistance; I69.391 Dysphagia following cerebral infarction
CPT/HCPCS: 36415; 70450; 71010; 71260; 74177; 74230; 76775; 80048; 80053; 80300; 81003; 82436; 82550; 82553; 82962; 83605; 83735; 83930; 83935; 84100; 84133; 84300; 84439; 84484; 84550; 85007; 85025; 87040; 87081; 87086; 87181; 89050; 93005; 94664; J1815; S0077